=== PATIENT | female | born 1945 | race Caucasian/White ===

== ENCOUNTER 2017-11-23 19:38 | Inpatient (IN) | payer MEDICARE, MEDICAID ==
[2017-11-23 23:56] LABS: % BASOPHILS 0.3 % (0.0-2.0); % EOSINOPHILS 0.3 % (0.0-5.0); % LYMPHOCYTES 17.7 % (20.0-50.0); % MONOCYTES 11.6 % (2.0-10.0); % NEUTROPHILS 70.1 % (40.0-80.0); HEMATOCRIT 29.1 % (41.0-60); HEMOGLOBIN 9.4 gm/dL (12-16); LYMPHOCYTE ABSOLUTE 1.2 Th/cmm (1.5-3.0); MEAN CORPUSCULAR HEMOGLOBIN 25.6 pg (27.0-31.0); MEAN CORPUSCULAR HGB CONC 32.4 pg (28.0-36.0); MEAN PLATELET VOLUME 6.8 fl; MONOCYTE ABSOLUTE 0.8 Th/cmm (0.3-1.0); NEUTROPHILE ABSOLUTE 4.6 Th/cmm (1.8-8.0); PLATELET COUNT 322 Th/cmm (150-400); RED BLOOD COUNT 3.68 Mil/cmm (3.80-5.20); RED CELL DISTRIBUTION WIDTH 14.8 % (11.5-20.0); WHITE BLOOD COUNT 6.6 Th/cmm (4.8-10.8)
[2017-11-24] MEDS ORDERED: Albuterol/Ipratropium Neb 3 ML AERS HHN ONE ×3 (00:10→05:48)
[2017-11-24 00:14] LABS: ALB/GLOB RATIO 1.3 (1.0-1.8); ALBUMIN 3.3 gm/dL (3.7-5.3); ALKALINE PHOSPHATASE 148 U/L (34-104); ANION GAP 9.2 (7.0-16.0); BILIRUBIN,TOTAL 0.4 mg/dL (0.3-1.0); BUN - UREA NITROGEN 15 mg/dL (7-25); CHLORIDE 95 mEq/L (98-107); CREATININE - SERUM 0.8 mg/dL (0.6-1.2); GLUCOSE 83 mg/dL (70-105); POTASSIUM SERUM 3.2 mEq/L (3.5-5.1); SGOT 28 U/L (13-39); SGPT/ALT 27 U/L (7-52); SODIUM SERUM 128 mEq/L (136-145); TOTAL PROTEIN,SERUM 5.8 gm/dL (6.0-8.3)
[2017-11-24] MEDS ORDERED: Sodium Chloride 0.9% 1,000 ML IV ONE (00:49)
[2017-11-24 02:58] LABS: URINE MICROSCOPIC INDICATED? YES; URINE SOURCE RANDOM
[2017-11-24 03:11] LABS: URINE BILIRUBIN NEGATIVE (NEGATIVE); URINE BLOOD TRACE (NEGATIVE); URINE GLUCOSE (UA) NEGATIVE (NEGATIVE); URINE KETONE NEGATIVE (NEGATIVE); URINE LEUKOCYTE ESTERASE NEGATIVE (NEGATIVE); URINE NITRATE NEGATIVE (NEGATIVE); URINE PROTEIN >=300 mg/dL (NEGATIVE); URINE UROBILINOGEN 0.2 E.U./dL (0.2 - 1.0)
[2017-11-24 03:14] LABS: URINE CLARITY HAZY (CLEAR); URINE COLOR YELLOW
[2017-11-24 03:16] LABS: URINE EPITHELIAL CELLS MODERATE /lpf (FEW)
[2017-11-24 03:17] LABS: URINE BACTERIA FEW /hpf (NONE SEEN)
--- NOTE | 2017-11-24 04:01 | ED Physician Chart ---
ED Chief Complaint/HPI - Patient Information Date Seen:: 11/24/17 Time Seen:: 00:05 Chief Complaint:: Cough and congestion History of Present Illness:: 72 yo female with a history of anemia, was brought by daughter due to cough, congestion, SOB and weakness for one week. Allergies:: Allergies Allergy/AdvReac Type Severity Reaction Status Date / Time No Known Allergies Allergy Verified 11/23/17 22:47 Vitals:: Vital Signs - 8 hr 11/23/17 11/24/17 20:30 00:21 Temp 97.4 F HR 65 65 RR 20 22 BP 170/79 O2 Sat % 100 95 ED Review of Systems - Review of Systems General/Constitutional: No fever, Weakness Skin: Skin lesions Head: No headache Eyes: No loss of vision ENT: No earache Neck: No neck pain Cardio Vascular: No chest pain Pulmonary: SOB, Cough GI: No nausea, No vomiting Musculoskeletal: No bone or joint pain ED Past Medical History - Past Medical History Past Medical History: DM, CHF, Asthma/COPD, Other (anemia, right foot ulcers) Social History: Non Smoker, No Alcohol, No Drug Use Family Medical History - Family Member Mother History Unknown: Yes ED Physical Exam - Physical Examination General/Constitutional: Awake Head: Atraumatic Eyes: PERRL ENMT: Nasal exam nl Neck: No nuchal rigidity Other Respiratory comments:: bibasal rhonchi and rales Cardio Vascular: RRR, No murmur, gallop, rubs, NL S1 S2 GI: No tenderness/rebounding/guarding, Nondistended Other Extremities comments:: Right lower extremity stasis ulcer Neuro/Psych: No focal deficits ED Labs/Radiology/EKG Results - Lab Results Results: Laboratory Tests 11/23/17 11/23/17 11/23/17 21:40 23:33 23:33 WBC 6.6 RBC 3.68 L Hgb 9.4 L Hct 29.1 L MCV 79.0 L MCH 25.6 L MCHC Differential 32.4 RDW 14.8 Plt Count 322 MPV 6.8 Neutrophils % 70.1 Lymphocytes % 17.7 L Monocytes % 11.6 H Eosinophils % 0.3 Basophils % 0.3 Sodium 128 L Potassium 3.2 L Chloride 95 L Carbon Dioxide 27.0 Anion Gap 9.2 BUN 15 Creatinine 0.8 Est GFR ( Amer) TNP Est GFR (Non-Af Amer) TNP BUN/Creatinine Ratio 18.8 Glucose 83 POC Glucose 72 Calcium 8.0 L Total Bilirubin 0.4 AST 28 ALT 27 Alkaline Phosphatase 148 H Total Protein 5.8 L Albumin 3.3 L Globulin 2.5 Albumin/Globulin Ratio 1.3 Urine Source Urine Color Urine Clarity Urine pH Ur Specific [place] Urine Protein Urine Glucose (UA) Urine Ketones Urine Blood Urine Nitrate Urine Bilirubin Urine Urobilinogen Ur Leukocyte Esterase Urine RBC Urine WBC Ur Epithelial Cells Urine Bacteria Hyaline Casts 11/24/17 02:50 WBC RBC Hgb Hct MCV MCH MCHC Differential RDW Plt Count MPV Neutrophils % Lymphocytes % Monocytes % Eosinophils % Basophils % Sodium Potassium Chloride Carbon Dioxide Anion Gap BUN Creatinine Est GFR ( Amer) Est GFR (Non-Af Amer) BUN/Creatinine Ratio Glucose POC Glucose Calcium Total Bilirubin AST ALT Alkaline Phosphatase Total Protein Albumin Globulin Albumin/Globulin Ratio Urine Source RANDOM Urine Color YELLOW Urine Clarity HAZY Urine pH 6.0 Ur Specific [place] >= 1.030 Urine Protein >=300 Urine Glucose (UA) NEGATIVE Urine Ketones NEGATIVE Urine Blood TRACE Urine Nitrate NEGATIVE Urine Bilirubin NEGATIVE Urine Urobilinogen 0.2 Ur Leukocyte Esterase NEGATIVE Urine RBC 5-10 H Urine WBC 2-5 Ur Epithelial Cells MODERATE Urine Bacteria FEW Hyaline Casts 2-5 H - Radiology Results Results: CXR: cardiomegaly, no consolidation ED Assessment - Assessment General Assessment: Bronchitis COPD Hyponatremia Hypokalemia Anemia, microcytic DM II Right lower extremity stasis ulcer Assessment/Comments:: CBC, CMP, UA CXR, EKG ABG DuoNeb NS 1L IV bolus Admit to telemetry for further evaluation and management ED Septic Shock - . Is Septic Shock (SBP<90, OR Lactate>4 mmol\L) present?: No - <6hrs of presentation: Vital Signs: Vital Signs - 8 hr 11/23/17 11/24/17 20:30 00:21 Temp 97.4 F HR 65 65 RR 20 22 BP 170/79 O2 Sat % 100 95 ED Reassessment (Disposition) - Reassessment Reassessment Condition:: Improved - Patient Disposition Discharge/Transfer:: Acute Care w/in this hosp Admitting Medical Physician:: Melanie Nayak ED Discharge Plan - Patient Disposition Admit/Discharge/Transfer: Discharge/Transfered to SNF Condition at Disposition: Stable
[2017-11-24 04:54] LABS: ALLEN TEST Positive; pH 7.38 (7.35-7.45)
--- NOTE | 2017-11-24 08:15 | Diagnostic Imaging Report ---
Portable chest x-ray Time: 0021 hours History: Evidence of breath Allowing for portable technique the heart size is prominent.. No focal pulmonary parenchymal processes. No hilar or mediastinal abnormalities. Impression: Cardiomegaly No acute abnormalities.
[2017-11-24] MEDS ORDERED: Potassium Chloride 20 mEq ER Tab PO ONE (11:55)
[2017-11-24] MEDS: Morphine Sulfate 2 mg/mL 1mL Syr IVP PRN ×2 (13:06→22:32)
[2017-11-24] MEDS: Sodium Chloride 0.9% 1,000 ML IV SCH (13:17)
--- NOTE | 2017-11-24 16:25 | History and Physical ---
History of Present Illness - HPI Vital Signs: Last Vital Signs Temp 98.4 F 11/24/17 16:09 Pulse 77 11/24/17 16:09 Resp 22 11/24/17 16:09 BP 181/72 11/24/17 16:09 Pulse Ox 100 11/24/17 11:25 Family Medical History - Family Member Mother History Unknown: Yes - Medications Home Medications: Home Medication Medication Instructions Recorded Type Unobtainable [Unobtainable] 11/24/17 History - Allergies Allergies/Adverse Reactions: Allergies Allergy/AdvReac Type Severity Reaction Status Date / Time No Known Allergies Allergy Verified 11/23/17 22:47
[2017-11-24] MEDS: Albuterol/Ipratropium Neb 3 ML AERS HHN PRN (18:38)
[2017-11-25] MEDS: Sodium Chloride 0.9% 1,000 ML IV SCH ×2 (02:01→16:21)
[2017-11-25 02:44] VITALS: BP 184/98
[2017-11-25] MEDS: Morphine Sulfate 2 mg/mL 1mL Syr IVP PRN (03:13)
--- NOTE | 2017-11-25 14:31 | Internal Medicine Prog Note ---
Internal Medicine Subjective - Subjective Service Date: 11/25/17 Patient seen and examined:: with staff Patient is:: awake Patient Complaints of:: congestion Per staff patient has:: tolerating meds Internal Medicine Objective - Results Result Diagrams: 11/23/17 23:33 11/23/17 23:33 Recent Labs: Laboratory Last Values WBC 6.6 Th/cmm (4.8-10.8) 11/23/17 23: RBC 3.68 Mil/cmm (3.80-5.20) L 11/23/17 23: Hgb 9.4 gm/dL (12-16) L 11/23/17 23:33 Hct 29.1 % (41.0-60) L 11/23/17 23: MCV 79.0 fl (81-100) L 11/23/17 23: MCH 25.6 pg (27.0-31.0) L 11/23/17 23: MCHC Differential 32.4 pg (28.0-36.0) 11/23/17 23: RDW 14.8 % (11.5-20.0) 11/23/17 23: Plt Count 322 Th/cmm (150-400) 11/23/17 23:33 MPV 6.8 fl 11/23/17 23:33 Neutrophils % 70.1 % (40.0-80.0) 11/23/17 23: Lymphocytes % 17.7 % (20.0-50.0) L 11/23/17 23: Monocytes % 11.6 % (2.0-10.0) H 11/23/17 23: Eosinophils % 0.3 % (0.0-5.0) 11/23/17 23: Basophils % 0.3 % (0.0-2.0) 11/23/17 23:33 Specimen Source Arterial 11/24/17 04:40 Sample Site Left Radial 11/24/17 04:40 pH 7.38 (7.35-7.45) 11/24/17 04:40 pCO2 54.0 mmHg (35.0-45.0) H 11/24/17 04:40 pO2 96.0 mmHg (80.0-100.0) 11/24/17 04:40 HCO3 29.1 mEq/L (20.0-26.0) H 11/24/17 04:40 Base Excess 5.4 mEq/L (-3.0-3.0) H 11/24/17 04:40 O2 Saturation 97.0 % (92.0-100.0) 11/24/17 04:40 Fredy Test Positive 11/24/17 04:40 Vent Rate NA 11/24/17 04:40 Inspired O2 28 11/24/17 04:40 Tidal Volume NA 11/24/17 04:40 PEEP NA 11/24/17 04:40 Pressure (ins/psv/peep) NA 11/24/17 04:40 Critical Value DONALD MACIAS 11/24/17 04:40 Sodium 128 mEq/L (136-145) L 11/23/17 23:33 Potassium 3.2 mEq/L (3.5-5.1) L 11/23/17 23:33 Chloride 95 mEq/L (98-107) L 11/23/17 23:33 Carbon Dioxide 27.0 mEq/L (21.0-31.0) 11/23/17 23:33 Anion Gap 9.2 (7.0-16.0) 11/23/17 23:33 BUN 15 mg/dL (7-25) 11/23/17 23:33 Creatinine 0.8 mg/dL (0.6-1.2) 11/23/17 23:33 Est GFR ( Amer) TNP 11/23/17 23:33 Est GFR (Non-Af Amer) TNP 11/23/17 23:33 BUN/Creatinine Ratio 18.8 11/23/17 23:33 Glucose 83 mg/dL (70-105) 11/23/17 23:33 POC Glucose 265 MG/DL (70 - 105) H 11/25/17 10:08 Calcium 8.0 mg/dL (8.6-10.3) L 11/23/17 23:33 Total Bilirubin 0.4 mg/dL (0.3-1.0) 11/23/17 23:33 AST 28 U/L (13-39) 11/23/17 23:33 ALT 27 U/L (7-52) 11/23/17 23:33 Alkaline Phosphatase 148 U/L (34-104) H 11/23/17 23:33 Total Protein 5.8 gm/dL (6.0-8.3) L 11/23/17 23:33 Albumin 3.3 gm/dL (3.7-5.3) L 11/23/17 23:33 Globulin 2.5 gm/dL 11/23/17 23:33 Albumin/Globulin Ratio 1.3 (1.0-1.8) 11/23/17 23:33 Urine Source RANDOM 11/24/17 02:50 Urine Color YELLOW 11/24/17 02:50 Urine Clarity HAZY (CLEAR) 11/24/17 02:50 Urine pH 6.0 (4.6 - 8.0) 11/24/17 02:50 Ur Specific [place] >= 1.030 (1.005-1.030) 11/24/17 02:50 Urine Protein >=300 mg/dL (NEGATIVE) 11/24/17 02:50 Urine Glucose (UA) NEGATIVE mg/dL (NEGATIVE) 11/24/17 02:50 Urine Ketones NEGATIVE mg/dL (NEGATIVE) 11/24/17 02:50 Urine Blood TRACE (NEGATIVE) 11/24/17 02:50 Urine Nitrate NEGATIVE (NEGATIVE) 11/24/17 02:50 Urine Bilirubin NEGATIVE (NEGATIVE) 11/24/17 02:50 Urine Urobilinogen 0.2 E.U./dL (0.2 - 1.0) 11/24/17 02:50 Ur Leukocyte Esterase NEGATIVE (NEGATIVE) 11/24/17 02:50 Urine RBC 5-10 /hpf (0-5) H 11/24/17 02:50 Urine WBC 2-5 /hpf (0-5) 11/24/17 02:50 Ur Epithelial Cells MODERATE /lpf (FEW) 11/24/17 02:50 Urine Bacteria FEW /hpf (NONE SEEN) 11/24/17 02:50 Hyaline Casts 2-5 /lpf (0-2) H 11/24/17 02:50 - Physical Exam Vitals and I&O: Vital Signs Temp 97.8 F 11/25/17 04:00 Pulse 73 11/25/17 13:17 Resp 20 11/25/17 04:00 BP 180/87 11/25/17 13:17 Pulse Ox 92 11/25/17 04:00 Intake & Output 11/24/17 11/25/17 11/25/17 18:59 06:59 18:59 Intake Total 350 1105 Balance 350 1105 Weight (lbs) 170 lb 170 lb Intake: Intake, IV Amount 955 Sodium Chloride 0.9% 1, 955 000 ml @ 75 mls/hr IV . [id number] [facility] Rx#:[id number] Oral 350 150 Other: # Voids 4 2 # Bowel Movements 1 0 Stool Characteristics Soft Formed Active Medications: Current Medications Albuterol/Ipratropium (Duoneb Neb) 3 ml HHN Q4HRT PRN PRN Reason: Shortness of Breath Stop: 01/23/18 05:17 Last Admin: 11/24/17 18:38 Dose: 3 ml Sodium Chloride (Nacl 0.9%) 1,000 mls @ 75 mls/hr IV .[id number] [facility] Stop: 01/23/18 12:29 Last Admin: 11/25/17 02:01 Dose: 75 mls/hr Insulin Aspart (Novolog Insulin Sliding Scale) 0 units SUBQ ACHS SY[facility]IA PRN Reason: Protocol Stop: 01/24/18 16:29 Lisinopril (Zestril) 15 mg PO DAILY [facility] Stop: 01/23/18 11:59 Last Admin: 11/25/17 08:10 Dose: 15 mg Morphine Sulfate (Morphine) 1 mg IVP Q4HR PRN PRN Reason: Pain (Moderate) Stop: 01/23/18 11:51 Last Admin: 11/24/17 22:32 Dose: 1 mg Morphine Sulfate (Morphine) 2 mg IVP Q4HR PRN PRN Reason: Pain (Severe) Stop: 01/23/18 11:51 Last Admin: 11/25/17 03:13 Dose: 2 mg Ondansetron HCl (Zofran) 4 mg IV Q4H PRN PRN Reason: Nausea / Vomiting Stop: 01/23/18 11:56 General: weak, alert HEENT: NC/AT, PERRLA Neck: Supple Lungs: ronchi Cardiovascular: RRR, Normal S1, Normal S2 Abdomen: soft, non-tender, non-distended Neurological: alert - Procedures Procedures: Procedures Procedure Code Date DRAINAGE OF SKIN ABSCESS 64933 07/03/05 OTHER SKIN & SUBQ I D 86.04 07/03/05 Internal Medicine Assmt/Plan - Assessment Assessment: anemia COPD exacerbation respiratory acidosis - Plan Plan: SUPPLEMENTAL O2 IVABX BRONCHODILATORS CONTINUE CURRENT PLAN OF CARE
[2017-11-25] MEDS: INSULIN ASPART SLIDING SCALE 100 UNITS/ML UNIT SUBQ SCH ×2 (16:29→21:33)
[2017-11-26] MEDS: Morphine Sulfate 2 mg/mL 1mL Syr IVP PRN ×2 (00:13→04:28)
[2017-11-26] MEDS: Sodium Chloride 0.9% 1,000 ML IV SCH (04:32)
[2017-11-26] MEDS: INSULIN ASPART SLIDING SCALE 100 UNITS/ML UNIT SUBQ SCH ×4 (07:34→22:54)
[2017-11-26] MEDS ORDERED: Albuterol/Ipratropium Neb 3 ML AERS HHN ONE (08:01)
[2017-11-26] MEDS: Albuterol/Ipratropium Neb 3 ML AERS HHN PRN ×2 (08:10→19:03)
[2017-11-26] MEDS: Atorvastatin Calcium 10 MG TAB PO SCH (08:53)
--- NOTE | 2017-11-26 12:19 | Internal Medicine Prog Note ---
Internal Medicine Subjective - Subjective Service Date: 11/26/17 (patient urine suzanne in color, noted with productive cough but white phlegm) Patient is:: awake Patient Complaints of:: congestion Per staff patient has:: tolerating meds Internal Medicine Objective - Results Result Diagrams: 11/23/17 23:33 11/23/17 23:33 Recent Labs: Laboratory Last Values WBC 6.6 Th/cmm (4.8-10.8) 11/23/17 23:33 RBC 3.68 Mil/cmm (3.80-5.20) L 11/23/17 23:33 Hgb 9.4 gm/dL (12-16) L 11/23/17 23:33 Hct 29.1 % (41.0-60) L 11/23/17 23: MCV 79.0 fl (81-100) L 11/23/17 23:33 MCH 25.6 pg (27.0-31.0) L 11/23/17 23:33 MCHC Differential 32.4 pg (28.0-36.0) 11/23/17 23:33 RDW 14.8 % (11.5-20.0) 11/23/17 23:33 Plt Count 322 Th/cmm (150-400) 11/23/17 23:33 MPV 6.8 fl 11/23/17 23:33 Neutrophils % 70.1 % (40.0-80.0) 11/23/17 23:33 Lymphocytes % 17.7 % (20.0-50.0) L 11/23/17 23:33 Monocytes % 11.6 % (2.0-10.0) H 11/23/17 23:33 Eosinophils % 0.3 % (0.0-5.0) 11/23/17 23:33 Basophils % 0.3 % (0.0-2.0) 11/23/17 23:33 Specimen Source Arterial 11/24/17 04:40 Sample Site Left Radial 11/24/17 04:40 pH 7.38 (7.35-7.45) 11/24/17 04:40 pCO2 54.0 mmHg (35.0-45.0) H 11/24/17 04:40 pO2 96.0 mmHg (80.0-100.0) 11/24/17 04:40 HCO3 29.1 mEq/L (20.0-26.0) H 11/24/17 04:40 Base Excess 5.4 mEq/L (-3.0-3.0) H 11/24/17 04:40 O2 Saturation 97.0 % (92.0-100.0) 11/24/17 04:40 Fredy Test Positive 11/24/17 04:40 Vent Rate NA 11/24/17 04:40 Inspired O2 28 11/24/17 04:40 Tidal Volume NA 11/24/17 04:40 PEEP NA 11/24/17 04:40 Pressure (ins/psv/peep) NA 11/24/17 04:40 Critical Value DONALD MACIAS 11/24/17 04:40 Sodium 128 mEq/L (136-145) L 11/23/17 23:33 Potassium 3.2 mEq/L (3.5-5.1) L 11/23/17 23:33 Chloride 95 mEq/L (98-107) L 11/23/17 23:33 Carbon Dioxide 27.0 mEq/L (21.0-31.0) 11/23/17 23:33 Anion Gap 9.2 (7.0-16.0) 11/23/17 23:33 BUN 15 mg/dL (7-25) 11/23/17 23:33 Creatinine 0.8 mg/dL (0.6-1.2) 11/23/17 23:33 Est GFR ( Amer) TNP 11/23/17 23:33 Est GFR (Non-Af Amer) TNP 11/23/17 23:33 BUN/Creatinine Ratio 18.8 11/23/17 23:33 Glucose 83 mg/dL (70-105) 11/23/17 23:33 POC Glucose 260 MG/DL (70 - 105) H 11/26/17 11:34 Calcium 8.0 mg/dL (8.6-10.3) L 11/23/17 23:33 Total Bilirubin 0.4 mg/dL (0.3-1.0) 11/23/17 23:33 AST 28 U/L (13-39) 11/23/17 23:33 ALT 27 U/L (7-52) 11/23/17 23:33 Alkaline Phosphatase 148 U/L (34-104) H 11/23/17 23:33 Total Protein 5.8 gm/dL (6.0-8.3) L 11/23/17 23:33 Albumin 3.3 gm/dL (3.7-5.3) L 11/23/17 23:33 Globulin 2.5 gm/dL 11/23/17 23:33 Albumin/Globulin Ratio 1.3 (1.0-1.8) 11/23/17 23:33 Urine Source RANDOM 11/24/17 02:50 Urine Color YELLOW 11/24/17 02:50 Urine Clarity HAZY (CLEAR) 11/24/17 02:50 Urine pH 6.0 (4.6 - 8.0) 11/24/17 02:50 Ur Specific [place] >= 1.030 (1.005-1.030) 11/24/17 02:50 Urine Protein >=300 mg/dL (NEGATIVE) 11/24/17 02:50 Urine Glucose (UA) NEGATIVE mg/dL (NEGATIVE) 11/24/17 02:50 Urine Ketones NEGATIVE mg/dL (NEGATIVE) 11/24/17 02:50 Urine Blood TRACE (NEGATIVE) 11/24/17 02:50 Urine Nitrate NEGATIVE (NEGATIVE) 11/24/17 02:50 Urine Bilirubin NEGATIVE (NEGATIVE) 11/24/17 02:50 Urine Urobilinogen 0.2 E.U./dL (0.2 - 1.0) 11/24/17 02:50 Ur Leukocyte Esterase NEGATIVE (NEGATIVE) 11/24/17 02:50 Urine RBC 5-10 /hpf (0-5) H 11/24/17 02:50 Urine WBC 2-5 /hpf (0-5) 11/24/17 02:50 Ur Epithelial Cells MODERATE /lpf (FEW) 11/24/17 02:50 Urine Bacteria FEW /hpf (NONE SEEN) 11/24/17 02:50 Hyaline Casts 2-5 /lpf (0-2) H 11/24/17 02:50 - Physical Exam Vitals and I&O: Vital Signs Temp 98.2 F 11/26/17 11:47 Pulse 75 11/26/17 11:47 Resp 18 11/26/17 11:47 BP 169/62 11/26/17 11:47 Pulse Ox 98 11/26/17 11:47 Intake & Output 11/25/17 11/26/17 11/26/17 18:59 06:59 18:59 Intake Total 1000 1113.75 Output Total 300 Balance 1000 813.75 Weight (lbs) 230 lb 3.2 oz Intake: Intake, IV Amount 1000 913.75 Sodium Chloride 0.9% 1, 1000 913.75 000 ml @ 75 mls/hr IV . [id number] [facility] Rx#:[id number] Oral 200 Output: Urine 300 Other: # Bowel Movements 0 Active Medications: Current Medications Albuterol/Ipratropium (Duoneb Neb) 3 ml HHN Q4HRT PRN PRN Reason: Shortness of Breath Stop: 01/23/18 05:17 Last Admin: 11/26/17 08:10 Dose: 3 ml Aspirin (Ecotrin) 81 mg PO DAILY [facility] Stop: 01/25/18 08:59 Last Admin: 11/26/17 09:22 Dose: 81 mg Atorvastatin Calcium (Lipitor) 10 mg PO DAILY [facility] Stop: 01/25/18 08:59 Last Admin: 11/26/17 08:53 Dose: 10 mg Carvedilol (Coreg) 25 mg PO BID [facility] Stop: 01/25/18 08:59 Last Admin: 11/26/17 08:54 Dose: 25 mg Furosemide (Lasix) 40 mg PO DAILY [facility] Stop: 01/25/18 08:59 Last Admin: 11/26/17 08:52 Dose: 40 mg Sodium Chloride (Nacl 0.9%) 1,000 mls @ 75 mls/hr IV .[id number] [facility] Stop: 01/23/18 12:29 Last Admin: 11/26/17 04:32 Dose: 75 mls/hr Insulin Aspart (Novolog Insulin Sliding Scale) 0 units SUBQ ACHS [facility] PRN Reason: Protocol Stop: 01/24/18 16:29 Last Admin: 11/26/17 12:05 Dose: 6 units Insulin Detemir (Levemir Insulin) 40 units SUBQ HS [facility] Stop: 01/25/18 20:59 Lisinopril (Zestril) 15 mg PO DAILY [facility] Stop: 01/23/18 11:59 Last Admin: 11/26/17 08:54 Dose: 15 mg Morphine Sulfate (Morphine) 1 mg IVP Q4HR PRN PRN Reason: Pain (Moderate) Stop: 01/23/18 11:51 Last Admin: 11/24/17 22:32 Dose: 1 mg Morphine Sulfate (Morphine) 2 mg IVP Q4HR PRN PRN Reason: Pain (Severe) Stop: 01/23/18 11:51 Last Admin: 11/26/17 04:28 Dose: 2 mg Ondansetron HCl (Zofran) 4 mg IV Q4H PRN PRN Reason: Nausea / Vomiting Stop: 01/23/18 11:56 Pentoxifylline (Trental) 400 mg PO BID [facility] Stop: 01/25/18 08:59 Last Admin: 11/26/17 08:53 Dose: 400 mg Sitagliptin Phosphate (Januvia) 25 mg PO DAILY [facility] Stop: 01/25/18 08:59 Last Admin: 11/26/17 09:22 Dose: 25 mg General: weak, alert HEENT: NC/AT, PERRLA Neck: Supple Lungs: ronchi Cardiovascular: RRR, Normal S1, Normal S2 Abdomen: soft, non-tender, non-distended Neurological: alert - Procedures Procedures: Procedures Procedure Code Date DRAINAGE OF SKIN ABSCESS 92919 07/03/05 OTHER SKIN & SUBQ I D 86.04 07/03/05 Internal Medicine Assmt/Plan - Assessment Assessment: anemia COPD exacerbation respiratory acidosis - Plan Plan: SEND URINE FOR UA AND CULTURE SUPPLEMENTAL O2 IVABX BRONCHODILATORS CONTINUE CURRENT PLAN OF CARE Nutritional Asmnt/Malnutr-PDOC - Dietary Evaluation Malnutrition Findings (Please click <Entered> for more info): Nutritional Asmnt/Malnutrition Start: 11/25/17 18: 26 Text: Status: Complete Freq: Document 11/25/17 18:26 [place]G (Rec: 11/25/17 18:33 [facility] [email or web address]) Nutritional Asmnt/Malnutrition Patient General Information Nutritional Screening High Risk Consult Diagnosis anemia, COPD, respiratory acidosis Pertinent Medical Hx/Surgical Hx anemia, DM per family Subjective Information consult received for diebetic foot ulcer, skin integrity/ wound. . pt seen resting in bed at the time of visit, family at bedside. family reported pt got regular diet tray this morning, wanted diabetic diet. Pt only had some oatmeal for breakfast and squash and applesauce for lunch, low appetite d/t disease. Family denied pt having chewing problem with dentures. Per notes, PO intake 25-50% 11/25 Current Diet Order/ Nutrition Support Regular Pertinent Medications novolog, nacl 0.9% Pertinent Labs 11/23 Na 128, K 3.2, Cl 95, BUN 15, Cr 0.8, Glucose 83, ca 8.0 11/25 POC 165-167 Nutritional Hx/Data Height 5 ft 5 in Height (Calculated Centimeters) 165.1 Current Weight (lbs) 170 lb Weight (Calculated Kilograms) 77.1 Weight (Calculated Grams) 29096.7 [place] Body Weight 125 % [place] Body Weight 136 Body Mass Index (BMI) 28.3 Weight Status Overweight GI Symptoms GI Symptoms None Difficult in: None Skin Integrity/Comment: decubitus to right foot Current %PO Poor (25-49%) Estimated Nutritional Goals BEE in Kcals: Using Current wt Calories/Kcals/Kg 25 Kcals Calculated 192 Protein: Using Current wt Protein g/k Protein Calculated 77 Fluid: ml 1924 Nutritional Problem 1. Problem Problem inadquate food intake Etiology poor appetite Signs/Symptoms: PO intake <50% Malnutrition Alert Protein-Calorie Malnutrition N/A Is there a minimum of two criteria No selected? Query Text:Check all the applicable criteria. A minimum of two criteria are recommended for diagnosis of either severe or non-severe malnutrition. Intervention/Recommendation Comments 1. Recommend CCHO diet with Boost Glucose Control BID. Notified RN. 2. Monitor PO intake, wt, labs and skin integrity 3. F/U as high risk in 2-3 days, 11/27-11/28 Expected Outcomes/Goals Expected Outcomes/Goals 1. PO intake to improve, to meet at least 75% of nutritional needs. 2. Wt stability, skin to remain intact, labs to improve
[2017-11-26 12:31] LABS: URINE MICROSCOPIC INDICATED? YES; URINE SOURCE CATH
[2017-11-26 12:57] LABS: URINE BILIRUBIN SMALL (NEGATIVE); URINE BLOOD LARGE (NEGATIVE); URINE GLUCOSE (UA) 100 mg/dL (NEGATIVE); URINE KETONE NEGATIVE (NEGATIVE); URINE LEUKOCYTE ESTERASE NEGATIVE (NEGATIVE); URINE NITRATE NEGATIVE (NEGATIVE); URINE PROTEIN 100 mg/dL (NEGATIVE); URINE UROBILINOGEN 0.2 E.U./dL (0.2 - 1.0)
[2017-11-26 13:18] LABS: URINE CLARITY HAZY (CLEAR); URINE COLOR YELLOW
[2017-11-26 13:22] LABS: URINE BACTERIA FEW /hpf (NONE SEEN); URINE EPITHELIAL CELLS FEW /lpf (FEW); URINE RBC >100 /hpf (0-5)
[2017-11-26] MEDS: Insulin Detemir 100 units/mL 10mL Vial SUBQ SCH (22:53)
[2017-11-26] MEDS: Levofloxacin 250mg/50mL 250 MG/50 ML BAG IV SCH (22:54)
[2017-11-27 05:19] LABS: % EOSINOPHILS 0.1 % (0.0-5.0); % LYMPHOCYTES 9.5 % (20.0-50.0); % MONOCYTES 5.9 % (2.0-10.0); % NEUTROPHILS 84.5 % (40.0-80.0); HEMATOCRIT 31.6 % (41.0-60); HEMOGLOBIN 10.3 gm/dL (12-16); LYMPHOCYTE ABSOLUTE 1.1 Th/cmm (1.5-3.0); MEAN CORPUSCULAR HEMOGLOBIN 25.8 pg (27.0-31.0); MEAN CORPUSCULAR HGB CONC 32.6 pg (28.0-36.0); MEAN PLATELET VOLUME 7.1 fl; MONOCYTE ABSOLUTE 0.7 Th/cmm (0.3-1.0); NEUTROPHILE ABSOLUTE 9.3 Th/cmm (1.8-8.0); PLATELET COUNT 293 Th/cmm (150-400); RED CELL DISTRIBUTION WIDTH 14.6 % (11.5-20.0)
[2017-11-27 05:29] LABS: WHITE BLOOD COUNT 11.1 Th/cmm (4.8-10.8)
[2017-11-27 05:38] LABS: BUN - UREA NITROGEN 16 mg/dL (7-25); CALCIUM SERUM 7.5 mg/dL (8.6-10.3); CHLORIDE 93 mEq/L (98-107); GLUCOSE 187 mg/dL (70-105); POTASSIUM SERUM 3.2 mEq/L (3.5-5.1); SODIUM SERUM 128 mEq/L (136-145)
[2017-11-27 06:46] LABS: ANION GAP 10.4 (7.0-16.0); CARBON DIOXIDE 27.8 mEq/L (21.0-31.0)
[2017-11-27] MEDS: INSULIN ASPART SLIDING SCALE 100 UNITS/ML UNIT SUBQ SCH ×4 (06:54→22:37)
[2017-11-27] MEDS: Atorvastatin Calcium 10 MG TAB PO SCH (08:52)
--- NOTE | 2017-11-27 09:54 | Diagnostic Imaging Report ---
CHEST X-RAY: AP view INDICATION: Cough COMPARISON: 11/24/2017 FINDINGS: Developing mild congestive changes are seen with small right effusion. Cardiomegaly is noted with atherosclerosis. IMPRESSION: Developing mild congestive changes and small right effusion. There may be pneumonia of the right lung base Cardiomegaly and atherosclerotic vascular disease.
[2017-11-27 14:29] LABS: A1C % 7.5 % (4.0-6.0)
[2017-11-27] MEDS ORDERED: Potassium Phosphate 20 MMOLE in Sodium Chloride 0.9% 250 ML IV ONE (15:59)
[2017-11-27] MEDS ORDERED: Potassium Chloride 40 MEQ, Lidocaine 1% 20mL Vial 25 MG in Sodium Chloride 0.9% 250 ML IV ONE (16:00)
[2017-11-27] MEDS: Albuterol/Ipratropium Neb 3 ML AERS HHN PRN ×2 (16:29→19:06)
[2017-11-27 17:24] LABS: pH 7.11 (7.35-7.45)
--- NOTE | 2017-11-27 17:28 | Consultation ---
Consult Note - Consult Note Service Date: 11/27/17 Referring Physician: Melanie Nayak Consult Note: PHYSICIAN Consultation Note: Date of Admission: 11/24/17 Purpose of Consultation: Chief Complaint: Patient MICHAEL SUAZO was admitted to [facility] with ANEMIA,COPD, RESPIRATORY ACIDOSIS. History of Present Illness: 72 year old female with history of anemia, COPD, CHF presented to the ER for cpugh and congestion. She was alert at the time of admission. However, her mental condition deteriorated, and started shallow breathing. CXR suspected effusion and effusion and ? pneumonia on the right. He Past Medical History: Diagnoses ANEMIA, UNSPECIFIED (11/24/17) ACIDOSIS (11/24/17) CHRONIC OBSTRUCTIVE PULMONARY DISEASE W (ACUTE) EXACERBATION (11/24/17) Allergies Allergy/AdvReac Type Severity Reaction Status Date / Time No Known Allergies Allergy Verified 11/23/17 22:47 Vital Signs Temp 97.2 F 11/27/17 16:00 Pulse 58 11/27/17 16:56 Resp 20 11/27/17 17:00 BP 110/50 11/27/17 16:56 Pulse Ox 100 11/27/17 16:31 Intake & Output 11/26/17 11/27/17 11/27/17 18:59 06:59 18:59 Intake Total 1550 Output Total 1200 Balance 350 Weight (lbs) 107.048 kg Intake: Intake, IV Amount 1050 Levofloxacin 250mg/50mL 50 250 mg In 50 ml @ 50 mls/ hr IV Q24HR [facility] Rx#: [id number] Sodium Chloride 0.9% 1, 1000 000 ml @ 75 mls/hr IV . [id number] [facility] Rx#:[id number] Oral 500 Output: Urine 1200 Other: # Bowel Movements 1 Laboratory Results - last 24 hr 11/26/17 11/27/17 11/27/17 22:39 05:05 05:05 WBC 11.1 H D RBC 4.00 Hgb 10.3 L Hct 31.6 L MCV 79.0 L MCH 25.8 L MCHC Differential 32.6 RDW 14.6 Plt Count 293 MPV 7.1 Neutrophils % 84.5 H Lymphocytes % 9.5 L Monocytes % 5.9 Eosinophils % 0.1 Basophils % 0.0 Specimen Source Sample Site pH pCO2 pO2 HCO3 Base Excess O2 Saturation Fredy Test Vent Rate Inspired O2 Tidal Volume PEEP Pressure (ins/psv/peep) Critical Value Sodium 128 L Potassium 3.2 L Chloride 93 L Carbon Dioxide 27.8 Anion Gap 10.4 BUN 16 Creatinine 1.0 Est GFR ( Amer) TNP Est GFR (Non-Af Amer) TNP BUN/Creatinine Ratio 16.0 Glucose 187 H POC Glucose 220 H Hemoglobin A1c % Calcium 7.5 L 11/27/17 11/27/17 11/27/17 05:05 06:39 10:56 WBC RBC Hgb Hct MCV MCH MCHC Differential RDW Plt Count MPV Neutrophils % Lymphocytes % Monocytes % Eosinophils % Basophils % Specimen Source Sample Site pH pCO2 pO2 HCO3 Base Excess O2 Saturation Fredy Test Vent Rate Inspired O2 Tidal Volume PEEP Pressure (ins/psv/peep) Critical Value Sodium Potassium Chloride Carbon Dioxide Anion Gap BUN Creatinine Est GFR ( Amer) Est GFR (Non-Af Amer) BUN/Creatinine Ratio Glucose POC Glucose 161 H 169 H Hemoglobin A1c % 7.5 H Calcium 11/27/17 11/27/17 16:48 16:51 WBC RBC Hgb Hct MCV MCH MCHC Differential RDW Plt Count MPV Neutrophils % Lymphocytes % Monocytes % Eosinophils % Basophils % Specimen Source Arterial Sample Site RB pH 7.11 L* pCO2 100.0 H* pO2 121.0 H HCO3 24.7 Base Excess -0.3 O2 Saturation 97.0 Fredy Test NA Vent Rate NA Inspired O2 28 Tidal Volume NA PEEP NA Pressure (ins/psv/peep) NA Critical Value SH Sodium Potassium Chloride Carbon Dioxide Anion Gap BUN Creatinine Est GFR ( Amer) Est GFR (Non-Af Amer) BUN/Creatinine Ratio Glucose POC Glucose 154 H Hemoglobin A1c % Calcium Home Medication Medication Instructions Recorded Type Aspirin EC [Ecotrin] 81 mg PO DAILY 11/25/17 History Carvedilol 25 mg PO BID 11/25/17 History Furosemide 40 mg PO DAILY 11/25/17 History Insulin Glargine, Recombinan 40 units SUBQ HS 11/25/17 History [Lantus] Pentoxifylline 400 mg PO BID 11/25/17 History Potassium Chloride ER [Klor-Con] 11/25/17 History Pravastatin Sodium 40 mg PO HS 11/25/17 History Sitagliptin Phosphate [Januvia] 25 mg PO 11/25/17 History Current Medications Generic Name Dose Route Start Last Admin Trade Name Freq PRN Reason Stop Dose Admin Albuterol/Ipratropium 3 ml 11/24/17 05:18 11/27/17 16:29 Duoneb Neb HHN 01/23/18 05:17 3 ml Q4HRT PRN Administration Shortness of Breath Alprazolam 0.25 mg 11/26/17 21:54 11/26/17 22:53 Xanax PO 01/25/18 21:53 0.25 mg Q8HR PRN Administration FOR ANXIETY Protocol Aspirin 81 mg 11/26/17 09:00 11/27/17 08:52 Ecotrin PO 01/25/18 08:59 81 mg DAILY [facility] Administration Atorvastatin Calcium 10 mg 11/26/17 09:00 11/27/17 08:52 Lipitor PO 01/25/18 08:59 10 mg DAILY [facility] Administration Carvedilol 25 mg 11/26/17 09:00 11/27/17 16:56 Coreg PO 01/25/18 08:59 Not Given BID [facility] Furosemide 40 mg 11/26/17 09:00 11/27/17 08:51 Lasix PO 01/25/18 08:59 40 mg DAILY [facility] Administration Sodium Chloride 1,000 mls @ 75 mls/hr 11/24/17 12:30 11/26/17 22:41 Nacl 0.9% IV 01/23/18 12:29 Infused .[id number] [facility] Infusion Levofloxacin 250 mg in 50 mls @ 50 mls/hr 11/26/17 21:00 11/27/17 06:55 Levaquin Pb IV 01/25/18 20:59 Infused Q24HR [facility] Infusion Potassium Chloride 40 meq/ 272.5 mls @ 68 mls/hr 11/27/17 16:00 11/27/17 16: 44 Lidocaine HCl 25 mg/ Sodium IV 11/27/17 20:00 68 mls/hr Chloride X1 ONE Administration Insulin Aspart 0 units 11/25/17 16:30 11/27/17 16:48 Novolog Insulin Sliding Scale SUBQ 01/24/18 16:29 2 units ACHS [facility] Administration Protocol Insulin Detemir 40 units 11/26/17 21:00 11/26/17 22:53 Levemir Insulin SUBQ 01/25/18 20:59 40 units HS [facility] Administration Lisinopril 15 mg 11/24/17 12:00 11/27/17 08:51 Zestril PO 01/23/18 11:59 15 mg DAILY [facility] Administration Lorazepam 0.5 mg 11/26/17 21:18 Ativan IVP 01/25/18 21:17 BID PRN Anxiety Protocol Morphine Sulfate 1 mg 11/24/17 11:52 11/24/17 22:32 Morphine IVP 01/23/18 11:51 1 mg Q4HR PRN Administration Pain (Moderate) Morphine Sulfate 2 mg 11/24/17 11:52 11/26/17 04:28 Morphine IVP 01/23/18 11:51 2 mg Q4HR PRN Administration Pain (Severe) Ondansetron HCl 4 mg 11/24/17 11:57 Zofran IV 01/23/18 11:56 Q4H PRN Nausea / Vomiting Pentoxifylline 400 mg 11/26/17 09:00 11/27/17 16:56 Trental PO 01/25/18 08:59 400 mg BID [facility] Administration Sitagliptin Phosphate 25 mg 11/26/17 09:00 11/27/17 08:52 Januvia PO 01/25/18 08:59 25 mg DAILY [facility] Administration Review of Systems: A 12 point ROS was reviewed with the pertinent positive and negatives noted in the HPI. Social History Smoking Status Unknown if ever smoked Family Medical History unknown. Physical Exam: General: WN WD HEENT: head normocephalic atraumatic. oral cavity moist pink tongue. eyes pallor is present, no icterus Neck: vesicular breath sounds. Cardio: S1 and D2 WNL. Respiratory: Vesicular BS, crackles present bilaterally. Abdominal: Soft NT ND BS present. Genital/Urinary: Extremities: NCCCE, has chronic right leg wound, with well defined border and pink base. Neurological: Obtunded. Assessment: 1. Pneumonia . 2. altered mental status, likey 2/2 CO2 Narcosis. cannot rule out any other etiologies. 3. CHF 4. brice cardia ( borderline). 5. Right leg wound, suspect venous stasis ulcer and pyoderma gangrenosum. Plan: Conitue levaquin. add zosyn. Check influenza A B screen. CT scan brain. serial ABG. If condition does not improve, may transfer to the ICU and get CT scan of head. Wound care. Signed, Rivera Cornelius M.D. [id number]
[2017-11-27] MEDS: Levofloxacin 250mg/50mL 250 MG/50 ML BAG IV SCH (21:16)
--- NOTE | 2017-11-27 21:38 | Progress Notes ---
DATE: 11/27/2017 SUBJECTIVE: The patient was seen in her room, lying in the bed. The patient is asleep, but is still arousable. Family members at the bedside. The patient appears to be comfortable, in no acute distress. OBJECTIVE: VITAL SIGNS: Temperature 96.5, heart rate 64, blood pressure 150/63, respiration of 18, 97% on 2 liters via nasal cannula. HEENT: Head is atraumatic and normocephalic. Eyes: Bilateral conjunctivae are clear. Bilateral pupils are equally round and reactive. NECK: Supple. No JVD. CARDIOVASCULAR: S1 and S2, without murmur. PULMONARY: Decreased bowel sounds with mild inspiratory wheezing noted. GASTROINTESTINAL: Soft and nontender without guarding. Positive bowel sounds. MUSCULOSKELETAL: No clubbing, no cyanosis noted. ASSESSMENT: 1. Chronic obstructive pulmonary disease exacerbation. 2. Anemia. 3. Generalized weakness. 4. Hypertension. 5. Diabetes. 6. Hyperlipidemia. 7. Anxiety. PLAN: We will keep the patient inpatient. We will continue antibiotics and we will provide pulmonary support to the patient. We will also monitor the patient's status. Treatment plans were discussed with the patient's nurse. Treatment plans were discussed with Dr. Nayak. JOB# [id number]
[2017-11-27] MEDS: Insulin Detemir 100 units/mL 10mL Vial SUBQ SCH (22:32)
[2017-11-28 06:12] LABS: pH 7.33 (7.35-7.45)
[2017-11-28] MEDS: Sodium Chloride 0.9% 1,000 ML IV SCH (06:15)
[2017-11-28 07:05] LABS: HEMOGLOBIN 10.9 gm/dL (12-16); MEAN CORPUSCULAR HGB CONC 32.9 pg (28.0-36.0); MEAN PLATELET VOLUME 6.8 fl; PLATELET COUNT 296 Th/cmm (150-400); RED BLOOD COUNT 4.17 Mil/cmm (3.80-5.20); RED CELL DISTRIBUTION WIDTH 14.3 % (11.5-20.0)
[2017-11-28 07:20] LABS: WHITE BLOOD COUNT 15.9 Th/cmm (4.8-10.8)
[2017-11-28 08:24] LABS: LYMPHOCYTE 8 % (20-50); MONOCYTE 6 % (2-10); NEUTROPHILS 86 % (40-80); PLATELET ESTIMATE ADEQUATE (NORMAL); TOTAL CELLS COUNTED 100
[2017-11-28] MEDS ORDERED: GLUCAGON HCl 1 MG KIT IM PRN (08:45)
[2017-11-28] MEDS ORDERED: Dextrose 50% 50 mL Abboject IVP PRN (08:45)
[2017-11-28] MEDS ORDERED: Dextrose 50% 50 mL Abboject IVP ONE (08:49)
[2017-11-28] MEDS: INSULIN ASPART SLIDING SCALE 100 UNITS/ML UNIT SUBQ SCH ×4 (08:57→20:49)
[2017-11-28] MEDS: Atorvastatin Calcium 10 MG TAB PO SCH (09:17)
--- NOTE | 2017-11-28 09:46 | Diagnostic Imaging Report ---
CHEST X-RAY: AP view INDICATION: Pneumonia COMPARISON: Chest x-ray 11/27/2017 FINDINGS: Persistent congestive changes are seen with small right effusion. Cardiomegaly is noted. IMPRESSION: Persistent congestive changes and small right effusion. Pneumonia of the right lung base cannot be excluded. Cardiomegaly.
--- NOTE | 2017-11-28 10:48 | General Progress Note ---
Subjective - Review of Systems Events since last encounter: comfortable in no distress Objective - Results Result Diagrams: 11/28/17 07:00 11/27/17 05:05 Recent Labs: Laboratory Last Values WBC 15.9 Th/cmm (4.8-10.8) H D 11/28/17 07:00 RBC 4.17 Mil/cmm (3.80-5.20) 11/28/17 07:00 Hgb 10.9 gm/dL (12-16) L 11/28/17 07:00 Hct 33.0 % (41.0-60) L 11/28/17 07:00 MCV 79.0 fl (81-100) L 11/28/17 07:00 MCH 26.0 pg (27.0-31.0) L 11/28/17 07:00 MCHC Differential 32.9 pg (28.0-36.0) 11/28/17 07:00 RDW 14.3 % (11.5-20.0) 11/28/17 07:00 Plt Count 296 Th/cmm (150-400) 11/28/17 07:00 MPV 6.8 fl 11/28/17 07:00 Neutrophils % CERTIFIED MEDICATION TECHNICIAN 11/28/17 07:00 Lymphocytes % CERTIFIED MEDICATION TECHNICIAN 11/28/17 07:00 Monocytes % CERTIFIED MEDICATION TECHNICIAN 11/28/17 07:00 Eosinophils % CERTIFIED MEDICATION TECHNICIAN 11/28/17 07:00 Basophils % CERTIFIED MEDICATION TECHNICIAN 11/28/17 07:00 Neutrophils (Manual) 86 % (40-80) H 11/28/17 07:00 Lymphocytes 8 % (20-50) L 11/28/17 07:00 Monocytes 6 % (2-10) 11/28/17 07:00 Platelet Estimate ADEQUATE (NORMAL) 11/28/17 07:00 Microcytosis 1+ 11/28/17 07:00 Specimen Source Arterial 11/28/17 06:00 Sample Site RB 11/28/17 06:00 pH 7.33 (7.35-7.45) L 11/28/17 06:00 pCO2 66.0 mmHg (35.0-45.0) H* 11/28/17 06:00 pO2 91.0 mmHg (80.0-100.0) 11/28/17 06:00 HCO3 30.2 mEq/L (20.0-26.0) H 11/28/17 06:00 Base Excess 6.8 mEq/L (-3.0-3.0) H 11/28/17 06:00 O2 Saturation 96.0 % (92.0-100.0) 11/28/17 06:00 Fredy Test NA 11/27/17 17:53 Vent Rate 14 11/28/17 06:00 Inspired O2 30 11/28/17 06:00 Tidal Volume 400 11/27/17 17:53 PEEP NA 11/27/17 17:53 Pressure (ins/psv/peep) 15 11/27/17 17:53 Critical Value PW 11/28/17 06:00 Sodium 128 mEq/L (136-145) L 11/27/17 05:05 Potassium 3.2 mEq/L (3.5-5.1) L 11/27/17 05:05 Chloride 93 mEq/L (98-107) L 11/27/17 05:05 Carbon Dioxide 27.8 mEq/L (21.0-31.0) 11/27/17 05:05 Anion Gap 10.4 (7.0-16.0) 11/27/17 05:05 BUN 16 mg/dL (7-25) 11/27/17 05:05 Creatinine 1.0 mg/dL (0.6-1.2) 11/27/17 05:05 Est GFR ( Amer) TNP 11/27/17 05:05 Est GFR (Non-Af Amer) TNP 11/27/17 05:05 BUN/Creatinine Ratio 16.0 11/27/17 05:05 Glucose 187 mg/dL (70-105) H 11/27/17 05:05 POC Glucose 55 MG/DL (70 - 105) L 11/28/17 08:42 Hemoglobin A1c % 7.5 % (4.0-6.0) H 11/27/17 05:05 Calcium 7.5 mg/dL (8.6-10.3) L 11/27/17 05:05 Total Bilirubin 0.4 mg/dL (0.3-1.0) 11/23/17 23:33 AST 28 U/L (13-39) 11/23/17 23:33 ALT 27 U/L (7-52) 11/23/17 23:33 Alkaline Phosphatase 148 U/L (34-104) H 11/23/17 23:33 Total Protein 5.8 gm/dL (6.0-8.3) L 11/23/17 23:33 Albumin 3.3 gm/dL (3.7-5.3) L 11/23/17 23:33 Globulin 2.5 gm/dL 11/23/17 23:33 Albumin/Globulin Ratio 1.3 (1.0-1.8) 11/23/17 23:33 Urine Source CATH 11/26/17 12:10 Urine Color YELLOW 11/26/17 12:10 Urine Clarity HAZY (CLEAR) 11/26/17 12:10 Urine pH 6.0 (4.6 - 8.0) 11/26/17 12:10 Ur Specific Mcdonald 1.025 (1.005-1.030) 11/26/17 12:10 Urine Protein 100 mg/dL (NEGATIVE) H 11/26/17 12:10 Urine Glucose (UA) 100 mg/dL (NEGATIVE) H 11/26/17 12:10 Urine Ketones NEGATIVE mg/dL (NEGATIVE) 11/26/17 12:10 Urine Blood LARGE (NEGATIVE) H 11/26/17 12:10 Urine Nitrate NEGATIVE (NEGATIVE) 11/26/17 12:10 Urine Bilirubin SMALL (NEGATIVE) H 11/26/17 12:10 Urine Urobilinogen 0.2 E.U./dL (0.2 - 1.0) 11/26/17 12:10 Ur Leukocyte Esterase NEGATIVE (NEGATIVE) 11/26/17 12:10 Urine RBC >100 /hpf (0-5) H 11/26/17 12:10 Urine WBC 2-5 /hpf (0-5) 11/26/17 12:10 Ur Epithelial Cells FEW /lpf (FEW) 11/26/17 12:10 Urine Bacteria FEW /hpf (NONE SEEN) 11/26/17 12:10 Hyaline Casts 2-5 /lpf (0-2) H 11/24/17 02:50 - Physical Exam Vitals and I&O: Vital Signs Temp 96.6 F 11/28/17 05:00 Pulse 70 11/28/17 09:17 Resp 25 11/28/17 10:31 BP 174/71 11/28/17 09:18 Pulse Ox 100 11/28/17 10:31 Intake & Output 11/27/17 11/28/17 11/28/17 18:59 06:59 18:59 Intake Total 200 Output Total 1050 550 Balance -850 -550 Weight (lbs) 107.048 kg 107.048 kg Intake: Intake, IV Amount 100 Piperacillin Sodium/ 100 Tazobact 4.5 gm In Sodium Chloride 0.9% 100 ml @ 100 mls/hr IV Q8HR [facility] Rx #:[id number] Oral 100 Output: Urine 1050 550 Other: Stool Characteristics Soft Active Medications: Current Medications Albuterol/Ipratropium (Duoneb Neb) 3 ml HHN Q4HRT PRN PRN Reason: Shortness of Breath Stop: 01/23/18 05:17 Last Admin: 11/27/17 19:06 Dose: 3 ml Alprazolam (Xanax) 0.25 mg PO Q8HR PRN; Protocol PRN Reason: FOR ANXIETY Stop: 01/25/18 21:53 Last Admin: 11/28/17 00:47 Dose: 0.25 mg Aspirin (Ecotrin) 81 mg PO DAILY [facility] Stop: 01/25/18 08:59 Last Admin: 11/28/17 09:17 Dose: 81 mg Atorvastatin Calcium (Lipitor) 10 mg PO DAILY [facility] Stop: 01/25/18 08:59 Last Admin: 11/28/17 09:17 Dose: 10 mg Carvedilol (Coreg) 25 mg PO BID [facility] Stop: 01/25/18 08:59 Last Admin: 11/28/17 09:17 Dose: 25 mg Dextrose (D50w) 50 ml IVP DAILY PRN PRN Reason: Blood Glucose less than 70 Stop: 01/27/18 08:44 Last Admin: 11/28/17 09:19 Dose: 50 ml Dextrose (Glutose 40%) 18.75 gm PO DAILY PRN PRN Reason: Blood Glucose less than 70 Stop: 01/27/18 08:44 Furosemide (Lasix) 40 mg PO DAILY [facility] Stop: 01/25/18 08:59 Last Admin: 11/28/17 09:18 Dose: 40 mg Glucagon (Glucagen) 1 mg IM DAILY PRN PRN Reason: Blood Glucose less than 70 Stop: 01/27/18 08:44 Sodium Chloride (Nacl 0.9%) 1,000 mls @ 75 mls/hr IV .[id number] [facility] Stop: 01/23/18 12:29 Last Admin: 11/28/17 06:15 Dose: 75 mls/hr Levofloxacin (Levaquin Pb) 250 mg in 50 mls @ 50 mls/hr IV Q24HR [facility] Stop: 01/25/18 20:59 Last Admin: 11/27/17 21:16 Dose: 50 mls/hr Piperacillin Sod/Tazobactam (Sod 4.5 gm/ Sodium Chloride) 100 mls @ 100 mls/hr IV Q8HR [facility] Stop: 01/26/18 20:59 Last Admin: 11/28/17 06:15 Dose: 100 mls/hr Insulin Aspart (Novolog Insulin Sliding Scale) 0 units SUBQ ACHS [facility] PRN Reason: Protocol Stop: 01/24/18 16:29 Last Admin: 11/28/17 08:57 Dose: Not Given Insulin Detemir (Levemir Insulin) 40 units SUBQ HS [facility] Stop: 01/25/18 20:59 Last Admin: 11/27/17 22:32 Dose: 40 units Lisinopril (Zestril) 15 mg PO DAILY [facility] Stop: 01/23/18 11:59 Last Admin: 11/28/17 09:15 Dose: 15 mg Lorazepam (Ativan) 0.5 mg IVP BID PRN; Protocol PRN Reason: Anxiety Stop: 01/25/18 21:17 Morphine Sulfate (Morphine) 1 mg IVP Q4HR PRN PRN Reason: Pain (Moderate) Stop: 01/23/18 11:51 Last Admin: 11/24/17 22:32 Dose: 1 mg Morphine Sulfate (Morphine) 2 mg IVP Q4HR PRN PRN Reason: Pain (Severe) Stop: 01/23/18 11:51 Last Admin: 11/26/17 04:28 Dose: 2 mg Ondansetron HCl (Zofran) 4 mg IV Q4H PRN PRN Reason: Nausea / Vomiting Stop: 01/23/18 11:56 Pentoxifylline (Trental) 400 mg PO BID [facility] Stop: 01/25/18 08:59 Last Admin: 11/28/17 09:15 Dose: 400 mg Sitagliptin Phosphate (Januvia) 25 mg PO DAILY [facility] Stop: 01/25/18 08:59 Last Admin: 11/28/17 09:19 Dose: Not Given General: No acute distress HEENT: Atraumatic Neck: Supple Cardiovascular: Regular rate - Procedures Procedures: Procedures Procedure Code Date DRAINAGE OF SKIN ABSCESS 95215 07/03/05 OTHER SKIN & SUBQ I D 86.04 07/03/05 Assessment/Plan - Problem List Patient Problems: All Active Problems Anemia (Acute) D64.9 Anxiety (Acute) F41.9 COPD exacerbation (Acute) J44.1 Diabetes (Acute) E11.9 General weakness (Acute) HTN (hypertension) (Acute) I10 Hyperlipidemia (Acute) E78.5 - Plan Plan: cpm Nutritional Asmnt/Malnutr-PDOC - Dietary Evaluation Malnutrition Findings (Please click <Entered> for more info): Nutritional Asmnt/Malnutrition Start: 11/25/17 18: 26 Text: Status: Complete Freq: Document 11/25/17 18:26 JAYA (Rec: 11/25/17 18:33 [id number] [email or web address]) Nutritional Asmnt/Malnutrition Patient General Information Nutritional Screening High Risk Consult Diagnosis anemia, COPD, respiratory acidosis Pertinent Medical Hx/Surgical Hx anemia, DM per family Subjective Information consult received for diebetic foot ulcer, skin integrity/ wound. . pt seen resting in bed at the time of visit, family at bedside. family reported pt got regular diet tray this morning, wanted diabetic diet. Pt only had some oatmeal for breakfast and squash and applesauce for lunch, low appetite d/t disease. Family denied pt having chewing problem with dentures. Per notes, PO intake 25-50% 1/4 Current Diet Order/ Nutrition Support Regular Pertinent Medications novolog, nacl 0.9% Pertinent Labs 1/2 Na 128, K 3.2, Cl 95, BUN 15, Cr 0.8, Glucose 83, ca 8.0 1/4 POC 165-167 Nutritional Hx/Data Height 1.65 m Height (Calculated Centimeters) 165.1 Current Weight (lbs) 77.111 kg Weight (Calculated Kilograms) 77.1 Weight (Calculated Grams) 75801.7 [place] Body Weight 125 % [place] Body Weight 136 Body Mass Index (BMI) 28.3 Weight Status Overweight GI Symptoms GI Symptoms None Difficult in: None Skin Integrity/Comment: decubitus to right foot Current %PO Poor (25-49%) Estimated Nutritional Goals BEE in Kcals: Using Current wt Calories/Kcals/Kg 25 Kcals Calculated 1924 Protein: Using Current wt Protein g/k Protein Calculated 77 Fluid: ml 1924 Nutritional Problem 1. Problem Problem inadquate food intake Etiology poor appetite Signs/Symptoms: PO intake <50% Malnutrition Alert Protein-Calorie Malnutrition N/A Is there a minimum of two criteria No selected? Query Text:Check all the applicable criteria. A minimum of two criteria are recommended for diagnosis of either severe or non-severe malnutrition. Intervention/Recommendation Comments 1. Recommend CCHO diet with Boost Glucose Control BID. Notified RN. 2. Monitor PO intake, wt, labs and skin integrity 3. F/U as high risk in 2-3 days, 11/27-11/28 Expected Outcomes/Goals Expected Outcomes/Goals 1. PO intake to improve, to meet at least 75% of nutritional needs. 2. Wt stability, skin to remain intact, labs to improve
[2017-11-28] MEDS: Morphine Sulfate 2 mg/mL 1mL Syr IVP PRN (11:49)
[2017-11-28 13:35] LABS: ALB/GLOB RATIO 1.1 (1.0-1.8); ALKALINE PHOSPHATASE 131 U/L (34-104); ANION GAP 7.8 (7.0-16.0); BILIRUBIN,TOTAL 0.4 mg/dL (0.3-1.0); BUN - UREA NITROGEN 21 mg/dL (7-25); CALCIUM SERUM 7.9 mg/dL (8.6-10.3); CARBON DIOXIDE 30.6 mEq/L (21.0-31.0); CHLORIDE 98 mEq/L (98-107); CREATININE - SERUM 1.3 mg/dL (0.6-1.2); GLUCOSE 71 mg/dL (70-105); POTASSIUM SERUM 3.4 mEq/L (3.5-5.1); SGOT 14 U/L (13-39); SGPT/ALT 18 U/L (7-52); SODIUM SERUM 133 mEq/L (136-145); TOTAL PROTEIN,SERUM 5.7 gm/dL (6.0-8.3)
[2017-11-28] MEDS ORDERED: Dextrose 5% 1,000 ML IV SCH (15:15)
[2017-11-28] MEDS: Levofloxacin 250mg/50mL 250 MG/50 ML BAG IV SCH (20:35)
[2017-11-28] MEDS: Insulin Detemir 100 units/mL 10mL Vial SUBQ SCH (20:50)
--- NOTE | 2017-11-29 00:53 | Consultation ---
DATE OF CONSULTATION: 11/28/2017 REFERRING PHYSICIAN: Dr. Nayak. Thank you very much for this consultation. HISTORY OF PRESENT ILLNESS: This is a 72-year-old female with history of CHF, diabetes, foot ulcers, presented with respiratory distress, shortness of breath, congestion, some hypertension, and admitted for further treatment and management. The patient was having some shallow breathing and placed on the BiPAP yesterday. ABG showed CO2 retention. She is improved on the current ABGs, but the patient is trying to take the mask on and off. PAST MEDICAL HISTORY: As above. SOCIAL HISTORY: No smoking or drinking. PHYSICAL EXAMINATION: GENERAL: Awake, alert, in no acute distress. VITAL SIGNS: Temperature 96.8, pulse is 68, respirations 16, blood pressure is 150/61, saturation is 100%. HEENT: Atraumatic, normocephalic. Pupils react to light and accommodation. Ears, nose and throat are normal. NECK: Supple. No JVD. CHEST: There is rhonchi and rales bilaterally. HEART: Regular rate and rhythm. ABDOMEN: Soft. EXTREMITIES: 1+ edema. LABORATORY DATA: WBC 15.7, hemoglobin 10.9, platelets 296. ABGs: pH 7.33, pCO2 of 66, pO2 is 91, bicarbonate 30, saturation 96%. Sodium 133, potassium 3.4, BUN is 21, creatinine is 1.3. Chest x-ray showed pulmonary edema, cardiomegaly, bilateral effusion. IMPRESSION: 1. This is a 72-year-old female with respiratory failure. 2. Pulmonary edema. 3. Congestive heart failure. 4. Possible pneumonia. 5. Diabetes. PLAN: 1. Change IV fluids to D5W at lower rate. 2. Continue Lasix. 3. Nebulizer treatment. 4. Continue BiPAP and avoid feeding patient until she is off the BiPAP. Prognosis is guarded. I discussed with the family at bedside. I will follow the patient with you. Thank you very much for this consultation. JOB# [id number]
[2017-11-29] MEDS: INSULIN ASPART SLIDING SCALE 100 UNITS/ML UNIT SUBQ SCH ×4 (06:55→21:28)
[2017-11-29 07:25] LABS: % BASOPHILS 0.1 % (0.0-2.0); % EOSINOPHILS 0.1 % (0.0-5.0); % LYMPHOCYTES 8.6 % (20.0-50.0); % MONOCYTES 6.2 % (2.0-10.0); HEMATOCRIT 32.5 % (41.0-60); HEMOGLOBIN 10.5 gm/dL (12-16); LYMPHOCYTE ABSOLUTE 1.3 Th/cmm (1.5-3.0); MEAN CELL VOLUME 78.8 fl (81-100); MEAN CORPUSCULAR HEMOGLOBIN 25.5 pg (27.0-31.0); MEAN CORPUSCULAR HGB CONC 32.4 pg (28.0-36.0); MEAN PLATELET VOLUME 7.1 fl; MONOCYTE ABSOLUTE 0.9 Th/cmm (0.3-1.0); NEUTROPHILE ABSOLUTE 12.5 Th/cmm (1.8-8.0); PLATELET COUNT 333 Th/cmm (150-400); RED BLOOD COUNT 4.12 Mil/cmm (3.80-5.20); RED CELL DISTRIBUTION WIDTH 14.8 % (11.5-20.0)
[2017-11-29 07:27] LABS: WHITE BLOOD COUNT 14.7 Th/cmm (4.8-10.8)
[2017-11-29 07:40] LABS: ANION GAP 8.2 (7.0-16.0); BUN - UREA NITROGEN 15 mg/dL (7-25); CHLORIDE 90 mEq/L (98-107); CREATININE - SERUM 1.2 mg/dL (0.6-1.2); GLUCOSE 83 mg/dL (70-105); SODIUM SERUM 139 mEq/L (136-145)
[2017-11-29 07:47] LABS: CARBON DIOXIDE 43.2 mEq/L (21.0-31.0); POTASSIUM SERUM 2.4 mEq/L (3.5-5.1)
[2017-11-29] MEDS ORDERED: KCL 20mEq/100mL Premix 20 MEQ/100 ML PIGGYBACK IV SCH ×3 (08:15→11:15)
--- NOTE | 2017-11-29 08:46 | Diagnostic Imaging Report ---
Portable chest x-ray HISTORY: Shortness of breath Compared with prior exam generally 2017, patient is rotated. The heart is enlarged. Slight density noted in the right lower hemithorax. A pleural effusion cannot be excluded. IMPRESSION: 1. Question right pleural effusion 2. Cardiomegaly. A degree of congestive heart failure cannot be excluded. Clinical correlation is needed.
[2017-11-29] MEDS ORDERED: POTASSIUM CHLORIDE IV SCH (09:00)
[2017-11-29] MEDS ORDERED: SODIUM CHLORIDE 0.9% IV SCH (09:00)
[2017-11-29] MEDS ORDERED: LIDOCAINE IV SCH (09:00)
[2017-11-29 09:50] LABS: pH 7.54 (7.35-7.45)
[2017-11-29 09:51] LABS: ALLEN TEST Y
[2017-11-29] MEDS: Atorvastatin Calcium 10 MG TAB PO SCH (10:34)
[2017-11-29] MEDS ORDERED: Potassium Chloride 40 MEQ, Lidocaine 1% 20mL Vial 25 MG in Sodium Chloride 0.9% 250 ML IV ONE (11:01)
--- NOTE | 2017-11-29 11:34 | Infectious Disease Prog Note ---
Infectious Disease Subjective - Review of Systems Service Date: 11/29/17 Subjective: Patient is alert and awake. Not in acute distress. No fever. Infectious Disease Objective - Results Result Diagrams: 11/29/17 06:30 11/29/17 06:30 Recent Labs: Laboratory Last Values WBC 14.7 Th/cmm (4.8-10.8) H 11/29/17 06:30 RBC 4.12 Mil/cmm (3.80-5.20) 11/29/17 06:30 Hgb 10.5 gm/dL (12-16) L 11/29/17 06:30 Hct 32.5 % (41.0-60) L 11/29/17 06:30 MCV 78.8 fl (81-100) L 11/29/17 06:30 MCH 25.5 pg (27.0-31.0) L 11/29/17 06:30 MCHC Differential 32.4 pg (28.0-36.0) 11/29/17 06:30 RDW 14.8 % (11.5-20.0) 11/29/17 06:30 Plt Count 333 Th/cmm (150-400) 11/29/17 06:30 MPV 7.1 fl 11/29/17 06:30 Neutrophils % 85.0 % (40.0-80.0) H 11/29/17 06:30 Lymphocytes % 8.6 % (20.0-50.0) L 11/29/17 06:30 Monocytes % 6.2 % (2.0-10.0) 11/29/17 06:30 Eosinophils % 0.1 % (0.0-5.0) 11/29/17 06:30 Basophils % 0.1 % (0.0-2.0) 11/29/17 06:30 Neutrophils (Manual) 86 % (40-80) H 11/28/17 07:00 Lymphocytes 8 % (20-50) L 11/28/17 07:00 Monocytes 6 % (2-10) 11/28/17 07:00 Platelet Estimate ADEQUATE (NORMAL) 11/28/17 07:00 Microcytosis 1+ 11/28/17 07:00 Specimen Source AERTERIAL 11/29/17 09:40 Sample Site RB 11/29/17 09:40 pH 7.54 (7.35-7.45) H 11/29/17 09:40 pCO2 59.0 mmHg (35.0-45.0) H* 11/29/17 09:40 pO2 60.0 mmHg (80.0-100.0) L 11/29/17 09:40 HCO3 43.0 mEq/L (20.0-26.0) H 11/29/17 09:40 Base Excess 21.0 mEq/L (-3.0-3.0) H 11/29/17 09:40 O2 Saturation 93.0 % (92.0-100.0) 11/29/17 09:40 Fredy Test Y 11/29/17 09:40 Vent Rate N/A 11/29/17 09:40 Inspired O2 30 11/29/17 09:40 Tidal Volume N/A 11/29/17 09:40 PEEP N/A 11/29/17 09:40 Pressure (ins/psv/peep) N/A 11/29/17 09:40 Critical Value O.VARELA 11/29/17 09:40 Sodium 139 mEq/L (136-145) 11/29/17 06:30 Potassium 2.4 mEq/L (3.5-5.1) L* D 11/29/17 06:30 Chloride 90 mEq/L (98-107) L 11/29/17 06:30 Carbon Dioxide 43.2 mEq/L (21.0-31.0) H 11/29/17 06:30 Anion Gap 8.2 (7.0-16.0) 11/29/17 06:30 BUN 15 mg/dL (7-25) 11/29/17 06:30 Creatinine 1.2 mg/dL (0.6-1.2) 11/29/17 06:30 Est GFR ( Amer) TNP 11/29/17 06:30 Est GFR (Non-Af Amer) TNP 11/29/17 06:30 BUN/Creatinine Ratio 12.5 11/29/17 06:30 Glucose 83 mg/dL (70-105) 11/29/17 06:30 POC Glucose 79 MG/DL (70 - 105) 11/29/17 06:47 Hemoglobin A1c % 7.5 % (4.0-6.0) H 11/27/17 05:05 Calcium 8.0 mg/dL (8.6-10.3) L 11/29/17 06:30 Total Bilirubin 0.4 mg/dL (0.3-1.0) 11/28/17 07:00 AST 14 U/L (13-39) 11/28/17 07:00 ALT 18 U/L (7-52) 11/28/17 07:00 Alkaline Phosphatase 131 U/L (34-104) H 11/28/17 07:00 B-Natriuretic Peptide 919.0 pg/mL (5.0-100.0) H 11/29/17 06:30 Total Protein 5.7 gm/dL (6.0-8.3) L 11/28/17 07:00 Albumin 3.0 gm/dL (3.7-5.3) L 11/28/17 07:00 Globulin 2.7 gm/dL 11/28/17 07:00 Albumin/Globulin Ratio 1.1 (1.0-1.8) 11/28/17 07:00 Urine Source CATH 11/26/17 12:10 Urine Color YELLOW 11/26/17 12:10 Urine Clarity HAZY (CLEAR) 11/26/17 12:10 Urine pH 6.0 (4.6 - 8.0) 11/26/17 12:10 Ur Specific [place] 1.025 (1.005-1.030) 11/26/17 12:10 Urine Protein 100 mg/dL (NEGATIVE) H 11/26/17 12:10 Urine Glucose (UA) 100 mg/dL (NEGATIVE) H 11/26/17 12:10 Urine Ketones NEGATIVE mg/dL (NEGATIVE) 11/26/17 12:10 Urine Blood LARGE (NEGATIVE) H 11/26/17 12:10 Urine Nitrate NEGATIVE (NEGATIVE) 11/26/17 12:10 Urine Bilirubin SMALL (NEGATIVE) H 11/26/17 12:10 Urine Urobilinogen 0.2 E.U./dL (0.2 - 1.0) 11/26/17 12:10 Ur Leukocyte Esterase NEGATIVE (NEGATIVE) 11/26/17 12:10 Urine RBC >100 /hpf (0-5) H 11/26/17 12:10 Urine WBC 2-5 /hpf (0-5) 11/26/17 12:10 Ur Epithelial Cells FEW /lpf (FEW) 11/26/17 12:10 Urine Bacteria FEW /hpf (NONE SEEN) 11/26/17 12:10 Hyaline Casts 2-5 /lpf (0-2) H 11/24/17 02:50 - Physical Exam Vitals and I&O: Vital Signs Temp 96.2 F 11/29/17 08:00 Pulse 87 11/29/17 10:34 Resp 25 11/29/17 09:00 BP 182/66 11/29/17 10:34 Pulse Ox 98 11/29/17 09:00 Intake & Output 11/28/17 11/29/17 11/29/17 18:59 06:59 18:59 Intake Total 350 250 Output Total 5350 4050 Balance -5000 -3800 Weight (lbs) 107.048 kg 107.048 kg Intake: Intake, IV Amount 200 250 Levofloxacin 250mg/50mL 50 250 mg In 50 ml @ 50 mls/ hr IV Q24HR [facility] Rx#: [id number] Piperacillin Sodium/ 200 200 Tazobact 4.5 gm In Sodium Chloride 0.9% 100 ml @ 100 mls/hr IV Q8HR [facility] Rx #:[id number] Oral 150 Output: Urine 5350 4050 Other: # Bowel Movements 0 Active Medications: Current Medications Albuterol/Ipratropium (Duoneb Neb) 3 ml HHN Q4HRT PRN PRN Reason: Shortness of Breath Stop: 01/23/18 05:17 Last Admin: 11/27/17 19:06 Dose: 3 ml Alprazolam (Xanax) 0.25 mg PO Q8HR PRN; Protocol PRN Reason: FOR ANXIETY Stop: 01/25/18 21:53 Last Admin: 11/28/17 18:35 Dose: 0.25 mg Aspirin (Ecotrin) 81 mg PO DAILY [facility] Stop: 01/25/18 08:59 Last Admin: 11/29/17 10:42 Dose: 81 mg Atorvastatin Calcium (Lipitor) 10 mg PO DAILY [facility] Stop: 01/25/18 08:59 Last Admin: 11/29/17 10:34 Dose: 10 mg Carvedilol (Coreg) 25 mg PO BID [facility] Stop: 01/25/18 08:59 Last Admin: 11/29/17 10:34 Dose: 25 mg Dextrose (D50w) 50 ml IVP DAILY PRN PRN Reason: Blood Glucose less than 70 Stop: 01/27/18 08:44 Last Admin: 11/28/17 09:19 Dose: 50 ml Dextrose (Glutose 40%) 18.75 gm PO DAILY PRN PRN Reason: Blood Glucose less than 70 Stop: 01/27/18 08:44 Furosemide (Lasix) 20 mg IVP DAILY [facility] Stop: 01/29/18 08:59 Glucagon (Glucagen) 1 mg IM DAILY PRN PRN Reason: Blood Glucose less than 70 Stop: 01/27/18 08:44 Levofloxacin (Levaquin Pb) 250 mg in 50 mls @ 50 mls/hr IV Q24HR [facility] Stop: 01/25/18 20:59 Last Infusion: 11/28/17 21:40 Dose: Infused Piperacillin Sod/Tazobactam (Sod 4.5 gm/ Sodium Chloride) 100 mls @ 100 mls/hr IV Q8HR [facility] Stop: 01/26/18 20:59 Last Infusion: 11/29/17 06:30 Dose: Infused Dextrose (D5w) 1,000 mls @ 40 mls/hr IV .Q24H [facility] Stop: 01/28/18 10:58 Insulin Aspart (Novolog Insulin Sliding Scale) 0 units SUBQ ACHS SYLVIA PRN Reason: Protocol Stop: 01/24/18 16:29 Last Admin: 11/29/17 06:55 Dose: Not Given Insulin Detemir (Levemir Insulin) 40 units SUBQ HS [facility] Stop: 01/25/18 20:59 Last Admin: 11/28/17 20:50 Dose: Not Given Lisinopril (Zestril) 15 mg PO DAILY [facility] Stop: 01/23/18 11:59 Last Admin: 11/29/17 10:29 Dose: 15 mg Lorazepam (Ativan) 0.5 mg IVP BID PRN; Protocol PRN Reason: Anxiety Stop: 01/25/18 21:17 Last Admin: 11/28/17 20:49 Dose: 0.5 mg Morphine Sulfate (Morphine) 1 mg IVP Q4HR PRN PRN Reason: Pain (Moderate) Stop: 01/23/18 11:51 Last Admin: 11/24/17 22:32 Dose: 1 mg Morphine Sulfate (Morphine) 2 mg IVP Q4HR PRN PRN Reason: Pain (Severe) Stop: 01/23/18 11:51 Last Admin: 11/28/17 11:49 Dose: 2 mg Ondansetron HCl (Zofran) 4 mg IV Q4H PRN PRN Reason: Nausea / Vomiting Stop: 01/23/18 11:56 Pentoxifylline (Trental) 400 mg PO BID [facility] Stop: 01/25/18 08:59 Last Admin: 11/29/17 10:34 Dose: 400 mg Sitagliptin Phosphate (Januvia) 25 mg PO DAILY [facility] Stop: 01/25/18 08:59 Last Admin: 11/29/17 09:54 Dose: Not Given General: no acute distress, well developed, well nourished HEENT: atraumatic, normocephalic, PERRLA, EOMI, moist mucous membrane Neck: supple, no thyromegaly Cardiovascular: S1S2, regular Lungs: clear to percussion, crackles Abdomen: soft, no tender, no distended, no mass, no rebound, no hepatomegaly Extremities: no cyanosis, no clubbing, no edema Neurological: awake, alert, oriented Skin: other (right leg ulcer) - Procedures Procedures: Procedures Procedure Code Date DRAINAGE OF SKIN ABSCESS 38447 07/03/05 OTHER SKIN & SUBQ I D 86.04 07/03/05 Infectious Disease Assmt/Plan - Problem List Patient Problems: All Active Problems Anemia (Acute) D64.9 Anxiety (Acute) F41.9 COPD exacerbation (Acute) J44.1 Diabetes (Acute) E11.9 General weakness (Acute) HTN (hypertension) (Acute) I10 Hyperlipidemia (Acute) E78.5 - Assessment Assessment: 1. Pneumonia . 2. altered mental status, likey 2/2 CO2 Narcosis. cannot rule out any other etiologies. 3. CHF 4. brice cardia ( borderline). 5. Right leg wound, suspect venous stasis ulcer and pyoderma gangrenosum. - Plan Plan: Continue Zosyn and Levaquin. Nutritional Asmnt/Malnutr-PDOC - Dietary Evaluation Malnutrition Findings (Please click <Entered> for more info): Nutritional Asmnt/Malnutrition Start: 11/25/17 18: 26 Text: Status: Complete Freq: Document 11/25/17 18:26 SAMSON (Rec: 11/25/17 18:33 LCHENG [email or web address]) Nutritional Asmnt/Malnutrition Patient General Information Nutritional Screening High Risk Consult Diagnosis anemia, COPD, respiratory acidosis Pertinent Medical Hx/Surgical Hx anemia, DM per family Subjective Information consult received for diebetic foot ulcer, skin integrity/ wound. . pt seen resting in bed at the time of visit, family at bedside. family reported pt got regular diet tray this morning, wanted diabetic diet. Pt only had some oatmeal for breakfast and squash and applesauce for lunch, low appetite d/t disease. Family denied pt having chewing problem with dentures. Per notes, PO intake 25-50% 11/25 Current Diet Order/ Nutrition Support Regular Pertinent Medications novolog, nacl 0.9% Pertinent Labs 11/23 Na 128, K 3.2, Cl 95, BUN 15, Cr 0.8, Glucose 83, ca 8.0 11/25 POC 165-167 Nutritional Hx/Data Height 1.65 m Height (Calculated Centimeters) 165.1 Current Weight (lbs) 77.111 kg Weight (Calculated Kilograms) 77.1 Weight (Calculated Grams) 50854.7 [place] Body Weight 125 % [place] Body Weight 136 Body Mass Index (BMI) 28.3 Weight Status Overweight GI Symptoms GI Symptoms None Difficult in: None Skin Integrity/Comment: decubitus to right foot Current %PO Poor (25-49%) Estimated Nutritional Goals BEE in Kcals: Using Current wt Calories/Kcals/Kg 25 Kcals Calculated 1925 Protein: Using Current wt Protein g/k Protein Calculated 77 Fluid: ml 1924 Nutritional Problem 1. Problem Problem inadquate food intake Etiology poor appetite Signs/Symptoms: PO intake <50% Malnutrition Alert Protein-Calorie Malnutrition N/A Is there a minimum of two criteria No selected? Query Text:Check all the applicable criteria. A minimum of two criteria are recommended for diagnosis of either severe or non-severe malnutrition. Intervention/Recommendation Comments 1. Recommend CCHO diet with Boost Glucose Control BID. Notified RN. 2. Monitor PO intake, wt, labs and skin integrity 3. F/U as high risk in 2-3 days, 11/27-11/28 Expected Outcomes/Goals Expected Outcomes/Goals 1. PO intake to improve, to meet at least 75% of nutritional needs. 2. Wt stability, skin to remain intact, labs to improve
--- NOTE | 2017-11-29 11:38 | Internal Medicine Prog Note ---
Internal Medicine Subjective - Subjective Service Date: 11/29/17 Patient is:: awake Patient Complaints of:: congestion Per staff patient has:: tolerating meds Internal Medicine Objective - Results Result Diagrams: 11/29/17 06:30 11/29/17 06:30 Recent Labs: Laboratory Last Values WBC 14.7 Th/cmm (4.8-10.8) H 11/29/17 06:30 RBC 4.12 Mil/cmm (3.80-5.20) 11/29/17 06:30 Hgb 10.5 gm/dL (12-16) L 11/29/17 06:30 Hct 32.5 % (41.0-60) L 11/29/17 06:30 MCV 78.8 fl (81-100) L 11/29/17 06:30 MCH 25.5 pg (27.0-31.0) L 11/29/17 06:30 MCHC Differential 32.4 pg (28.0-36.0) 11/29/17 06:30 RDW 14.8 % (11.5-20.0) 11/29/17 06:30 Plt Count 333 Th/cmm (150-400) 11/29/17 06:30 MPV 7.1 fl 11/29/17 06:30 Neutrophils % 85.0 % (40.0-80.0) H 11/29/17 06:30 Lymphocytes % 8.6 % (20.0-50.0) L 11/29/17 06:30 Monocytes % 6.2 % (2.0-10.0) 11/29/17 06:30 Eosinophils % 0.1 % (0.0-5.0) 11/29/17 06:30 Basophils % 0.1 % (0.0-2.0) 11/29/17 06:30 Neutrophils (Manual) 86 % (40-80) H 11/28/17 07:00 Lymphocytes 8 % (20-50) L 11/28/17 07:00 Monocytes 6 % (2-10) 11/28/17 07:00 Platelet Estimate ADEQUATE (NORMAL) 11/28/17 07:00 Microcytosis 1+ 11/28/17 07:00 Specimen Source AERTERIAL 11/29/17 09:40 Sample Site RB 11/29/17 09:40 pH 7.54 (7.35-7.45) H 11/29/17 09:40 pCO2 59.0 mmHg (35.0-45.0) H* 11/29/17 09:40 pO2 60.0 mmHg (80.0-100.0) L 11/29/17 09:40 HCO3 43.0 mEq/L (20.0-26.0) H 11/29/17 09:40 Base Excess 21.0 mEq/L (-3.0-3.0) H 11/29/17 09:40 O2 Saturation 93.0 % (92.0-100.0) 11/29/17 09:40 Fredy Test Y 11/29/17 09:40 Vent Rate N/A 11/29/17 09:40 Inspired O2 30 11/29/17 09:40 Tidal Volume N/A 11/29/17 09:40 PEEP N/A 11/29/17 09:40 Pressure (ins/psv/peep) N/A 11/29/17 09:40 Critical Value O.VARELA 11/29/17 09:40 Sodium 139 mEq/L (136-145) 11/29/17 06:30 Potassium 2.4 mEq/L (3.5-5.1) L* D 11/29/17 06:30 Chloride 90 mEq/L (98-107) L 11/29/17 06:30 Carbon Dioxide 43.2 mEq/L (21.0-31.0) H 11/29/17 06:30 Anion Gap 8.2 (7.0-16.0) 11/29/17 06:30 BUN 15 mg/dL (7-25) 11/29/17 06:30 Creatinine 1.2 mg/dL (0.6-1.2) 11/29/17 06:30 Est GFR ( Amer) TNP 11/29/17 06:30 Est GFR (Non-Af Amer) TNP 11/29/17 06:30 BUN/Creatinine Ratio 12.5 11/29/17 06:30 Glucose 83 mg/dL (70-105) 11/29/17 06:30 POC Glucose 79 MG/DL (70 - 105) 11/29/17 06:47 Hemoglobin A1c % 7.5 % (4.0-6.0) H 11/27/17 05:05 Calcium 8.0 mg/dL (8.6-10.3) L 11/29/17 06:30 Total Bilirubin 0.4 mg/dL (0.3-1.0) 11/28/17 07:00 AST 14 U/L (13-39) 11/28/17 07:00 ALT 18 U/L (7-52) 11/28/17 07:00 Alkaline Phosphatase 131 U/L (34-104) H 11/28/17 07:00 B-Natriuretic Peptide 919.0 pg/mL (5.0-100.0) H 11/29/17 06:30 Total Protein 5.7 gm/dL (6.0-8.3) L 11/28/17 07:00 Albumin 3.0 gm/dL (3.7-5.3) L 11/28/17 07:00 Globulin 2.7 gm/dL 11/28/17 07:00 Albumin/Globulin Ratio 1.1 (1.0-1.8) 11/28/17 07:00 Urine Source CATH 11/26/17 12:10 Urine Color YELLOW 11/26/17 12:10 Urine Clarity HAZY (CLEAR) 11/26/17 12:10 Urine pH 6.0 (4.6 - 8.0) 11/26/17 12:10 Ur Specific [place] 1.025 (1.005-1.030) 11/26/17 12:10 Urine Protein 100 mg/dL (NEGATIVE) H 11/26/17 12:10 Urine Glucose (UA) 100 mg/dL (NEGATIVE) H 11/26/17 12:10 Urine Ketones NEGATIVE mg/dL (NEGATIVE) 11/26/17 12:10 Urine Blood LARGE (NEGATIVE) H 11/26/17 12:10 Urine Nitrate NEGATIVE (NEGATIVE) 11/26/17 12:10 Urine Bilirubin SMALL (NEGATIVE) H 11/26/17 12:10 Urine Urobilinogen 0.2 E.U./dL (0.2 - 1.0) 11/26/17 12:10 Ur Leukocyte Esterase NEGATIVE (NEGATIVE) 11/26/17 12:10 Urine RBC >100 /hpf (0-5) H 11/26/17 12:10 Urine WBC 2-5 /hpf (0-5) 11/26/17 12:10 Ur Epithelial Cells FEW /lpf (FEW) 11/26/17 12:10 Urine Bacteria FEW /hpf (NONE SEEN) 11/26/17 12:10 Hyaline Casts 2-5 /lpf (0-2) H 11/24/17 02:50 - Physical Exam Vitals and I&O: Vital Signs Temp 96.2 F 11/29/17 08:00 Pulse 87 11/29/17 10:34 Resp 25 11/29/17 09:00 BP 182/66 11/29/17 10:34 Pulse Ox 98 11/29/17 09:00 Intake & Output 11/28/17 11/29/17 11/29/17 18:59 06:59 18:59 Intake Total 350 250 Output Total 5350 4050 Balance -5000 -3800 Weight (lbs) 236 lb 236 lb Intake: Intake, IV Amount 200 250 Levofloxacin 250mg/50mL 50 250 mg In 50 ml @ 50 mls/ hr IV Q24HR [facility] Rx#: [id number] Piperacillin Sodium/ 200 200 Tazobact 4.5 gm In Sodium Chloride 0.9% 100 ml @ 100 mls/hr IV Q8HR [facility] Rx #:[id number] Oral 150 Output: Urine 5350 4050 Other: # Bowel Movements 0 Active Medications: Current Medications Albuterol/Ipratropium (Duoneb Neb) 3 ml HHN Q4HRT PRN PRN Reason: Shortness of Breath Stop: 01/23/18 05:17 Last Admin: 11/27/17 19:06 Dose: 3 ml Alprazolam (Xanax) 0.25 mg PO Q8HR PRN; Protocol PRN Reason: FOR ANXIETY Stop: 01/25/18 21:53 Last Admin: 11/28/17 18:35 Dose: 0.25 mg Aspirin (Ecotrin) 81 mg PO DAILY [facility] Stop: 01/25/18 08:59 Last Admin: 11/29/17 10:42 Dose: 81 mg Atorvastatin Calcium (Lipitor) 10 mg PO DAILY [facility] Stop: 01/25/18 08:59 Last Admin: 11/29/17 10:34 Dose: 10 mg Carvedilol (Coreg) 25 mg PO BID [facility] Stop: 01/25/18 08:59 Last Admin: 11/29/17 10:34 Dose: 25 mg Dextrose (D50w) 50 ml IVP DAILY PRN PRN Reason: Blood Glucose less than 70 Stop: 01/27/18 08:44 Last Admin: 11/28/17 09:19 Dose: 50 ml Dextrose (Glutose 40%) 18.75 gm PO DAILY PRN PRN Reason: Blood Glucose less than 70 Stop: 01/27/18 08:44 Furosemide (Lasix) 20 mg IVP DAILY [facility] Stop: 01/29/18 08:59 Glucagon (Glucagen) 1 mg IM DAILY PRN PRN Reason: Blood Glucose less than 70 Stop: 01/27/18 08:44 Levofloxacin (Levaquin Pb) 250 mg in 50 mls @ 50 mls/hr IV Q24HR [facility] Stop: 01/25/18 20:59 Last Infusion: 11/28/17 21:40 Dose: Infused Piperacillin Sod/Tazobactam (Sod 4.5 gm/ Sodium Chloride) 100 mls @ 100 mls/hr IV Q8HR [facility] Stop: 01/26/18 20:59 Last Infusion: 11/29/17 06:30 Dose: Infused Dextrose (D5w) 1,000 mls @ 40 mls/hr IV .Q24H [facility] Stop: 01/28/18 10:58 Insulin Aspart (Novolog Insulin Sliding Scale) 0 units SUBQ ACHS SYLVIA PRN Reason: Protocol Stop: 01/24/18 16:29 Last Admin: 11/29/17 06:55 Dose: Not Given Insulin Detemir (Levemir Insulin) 40 units SUBQ HS [facility] Stop: 01/25/18 20:59 Last Admin: 11/28/17 20:50 Dose: Not Given Lisinopril (Zestril) 15 mg PO DAILY [facility] Stop: 01/23/18 11:59 Last Admin: 11/29/17 10:29 Dose: 15 mg Lorazepam (Ativan) 0.5 mg IVP BID PRN; Protocol PRN Reason: Anxiety Stop: 01/25/18 21:17 Last Admin: 11/28/17 20:49 Dose: 0.5 mg Morphine Sulfate (Morphine) 1 mg IVP Q4HR PRN PRN Reason: Pain (Moderate) Stop: 01/23/18 11:51 Last Admin: 11/24/17 22:32 Dose: 1 mg Morphine Sulfate (Morphine) 2 mg IVP Q4HR PRN PRN Reason: Pain (Severe) Stop: 01/23/18 11:51 Last Admin: 11/28/17 11:49 Dose: 2 mg Ondansetron HCl (Zofran) 4 mg IV Q4H PRN PRN Reason: Nausea / Vomiting Stop: 01/23/18 11:56 Pentoxifylline (Trental) 400 mg PO BID [facility] Stop: 01/25/18 08:59 Last Admin: 11/29/17 10:34 Dose: 400 mg Sitagliptin Phosphate (Januvia) 25 mg PO DAILY [facility] Stop: 01/25/18 08:59 Last Admin: 11/29/17 09:54 Dose: Not Given General: weak, alert HEENT: NC/AT, PERRLA Neck: Supple Lungs: ronchi Cardiovascular: RRR, Normal S1, Normal S2 Abdomen: soft, non-tender, non-distended Neurological: alert - Procedures Procedures: Procedures Procedure Code Date DRAINAGE OF SKIN ABSCESS 27318 07/03/05 OTHER SKIN & SUBQ I D 86.04 07/03/05 Internal Medicine Assmt/Plan - Assessment Assessment: anemia COPD exacerbation respiratory acidosis - Plan Plan: BIPAP STANDBY CARDIOLOGY CONSULT SUPPLEMENTAL O2 IVABX BRONCHODILATORS CONTINUE CURRENT PLAN OF CARE Nutritional Asmnt/Malnutr-PDOC - Dietary Evaluation Malnutrition Findings (Please click <Entered> for more info): Nutritional Asmnt/Malnutrition Start: 11/25/17 18: 26 Text: Status: Complete Freq: Document 11/25/17 18:26 LCHENG (Rec: 11/25/17 18:33 LCHENG [email or web address]) Nutritional Asmnt/Malnutrition Patient General Information Nutritional Screening High Risk Consult Diagnosis anemia, COPD, respiratory acidosis Pertinent Medical Hx/Surgical Hx anemia, DM per family Subjective Information consult received for diebetic foot ulcer, skin integrity/ wound. . pt seen resting in bed at the time of visit, family at bedside. family reported pt got regular diet tray this morning, wanted diabetic diet. Pt only had some oatmeal for breakfast and squash and applesauce for lunch, low appetite d/t disease. Family denied pt having chewing problem with dentures. Per notes, PO intake 25-50% 11/25 Current Diet Order/ Nutrition Support Regular Pertinent Medications novolog, nacl 0.9% Pertinent Labs 11/23 Na 128, K 3.2, Cl 95, BUN 15, Cr 0.8, Glucose 83, ca 8.0 11/25 POC 165-167 Nutritional Hx/Data Height 5 ft 5 in Height (Calculated Centimeters) 165.1 Current Weight (lbs) 170 lb Weight (Calculated Kilograms) 77.1 Weight (Calculated Grams) 69913.7 [place] Body Weight 125 % [place] Body Weight 136 Body Mass Index (BMI) 28.3 Weight Status Overweight GI Symptoms GI Symptoms None Difficult in: None Skin Integrity/Comment: decubitus to right foot Current %PO Poor (25-49%) Estimated Nutritional Goals BEE in Kcals: Using Current wt Calories/Kcals/Kg 25 Kcals Calculated 1924 Protein: Using Current wt Protein g/k Protein Calculated 77 Fluid: ml 1924 Nutritional Problem 1. Problem Problem inadquate food intake Etiology poor appetite Signs/Symptoms: PO intake <50% Malnutrition Alert Protein-Calorie Malnutrition N/A Is there a minimum of two criteria No selected? Query Text:Check all the applicable criteria. A minimum of two criteria are recommended for diagnosis of either severe or non-severe malnutrition. Intervention/Recommendation Comments 1. Recommend CCHO diet with Boost Glucose Control BID. Notified RN. 2. Monitor PO intake, wt, labs and skin integrity 3. F/U as high risk in 2-3 days, 11/27-11/28 Expected Outcomes/Goals Expected Outcomes/Goals 1. PO intake to improve, to meet at least 75% of nutritional needs. 2. Wt stability, skin to remain intact, labs to improve
[2017-11-29] MEDS: Albuterol/Ipratropium Neb 3 ML AERS HHN PRN (12:34)
[2017-11-29 12:40] LABS: INF A SCREEN NEG FOR INF A; INF B SCREEN NEG FOR INF B
[2017-11-29] MEDS: Dextrose 5% 1,000 ML IV SCH (15:42)
[2017-11-29] MEDS ORDERED: Potassium Chloride 20 mEq ER Tab PO ONE (16:00)
[2017-11-29] MEDS: Levofloxacin 250mg/50mL 250 MG/50 ML BAG IV SCH (21:22)
[2017-11-29] MEDS: Insulin Detemir 100 units/mL 10mL Vial SUBQ SCH (21:28)
--- NOTE | 2017-11-30 00:25 | Consultation ---
DATE OF CONSULTATION: 11/29/[address] Nayak. HISTORY AND PHYSICAL: This is a 72-year-old female patient came to the Emergency Room complaining of shortness of breath. The patient was found to have congestive heart failure and pneumonia. The patient is admitted. The patient at this time is hypokalemic. Cardiac consult requested in view of elevated BNP level. PAST MEDICAL HISTORY: COPD, iron deficiency anemia, right leg venous stasis with ulcer and iron deficiency anemia. FAMILY HISTORY: Unremarkable. SOCIAL HISTORY: No history of smoking or alcohol abuse. ALLERGIES: None. PHYSICAL EXAMINATION: VITAL SIGNS: Blood pressure 130/80, pulse 90 and respirations 28. HEAD: Normocephalic. No lumps or bumps. EYES: Pupils equal and reactive to light. Fundi show AV nicking, sclerae white, conjunctivae pink. NECK: Carotid 2+. Normal upstroke. JVD 10 cm above the sternal angle. Thyroid not palpable. Lymph nodes not palpable. CHEST: Shows increased AP diameter. No kyphosis or scoliosis. LUNGS: Bilateral rales. Decreased breath sounds both the bases. HEART: PMI, sixth intercostal space with lateral to midclavicular line. S1, S2, S3, S4, soft systolic murmur. ABDOMEN: Soft, hepatojugular reflux. Positive bowel sounds active. RECTAL: Deferred. NEUROLOGIC: Unremarkable. EXTREMITIES: The patient has stasis ulcers in the right lower extremity. CLINICAL IMPRESSION: Acute respiratory failure; congestive heart failure; diastolic dysfunction, acute; chronic obstructive pulmonary disease; iron deficiency anemia; pneumonia; right leg venous stasis with ulcer and hypokalemia. PLAN: We will continue diuretics. Get echocardiogram for left ventricular function. Potassium supplement. JOB# [id number]
[2017-11-30 06:03] LABS: % BASOPHILS 0.1 % (0.0-2.0); % EOSINOPHILS 0.1 % (0.0-5.0); % LYMPHOCYTES 7.1 % (20.0-50.0); % MONOCYTES 6.3 % (2.0-10.0); % NEUTROPHILS 86.4 % (40.0-80.0); HEMATOCRIT 30.7 % (41.0-60); LYMPHOCYTE ABSOLUTE 1.1 Th/cmm (1.5-3.0); MEAN CELL VOLUME 78.9 fl (81-100); MEAN CORPUSCULAR HEMOGLOBIN 25.6 pg (27.0-31.0); MEAN CORPUSCULAR HGB CONC 32.5 pg (28.0-36.0); NEUTROPHILE ABSOLUTE 13.2 Th/cmm (1.8-8.0); PLATELET COUNT 307 Th/cmm (150-400); RED CELL DISTRIBUTION WIDTH 15.2 % (11.5-20.0)
[2017-11-30 06:05] LABS: WHITE BLOOD COUNT 15.3 Th/cmm (4.8-10.8)
[2017-11-30 06:14] LABS: ANION GAP 5.9 (7.0-16.0); BUN - UREA NITROGEN 13 mg/dL (7-25); CALCIUM SERUM 7.3 mg/dL (8.6-10.3); CHLORIDE 86 mEq/L (98-107); CREATININE - SERUM 1.1 mg/dL (0.6-1.2); SODIUM SERUM 136 mEq/L (136-145)
[2017-11-30 06:16] LABS: CARBON DIOXIDE 46.8 mEq/L (21.0-31.0); GLUCOSE 229 mg/dL (70-105); POTASSIUM SERUM 2.7 mEq/L (3.5-5.1)
[2017-11-30] MEDS: INSULIN ASPART SLIDING SCALE 100 UNITS/ML UNIT SUBQ SCH ×4 (06:49→21:13)
--- NOTE | 2017-11-30 08:31 | Diagnostic Imaging Report ---
CHEST X-RAY: AP view INDICATION: Shortness of breath COMPARISON: 11/29/2017 FINDINGS: Mild congestive changes are seen with small right effusion. Cardiomegaly is noted with atherosclerosis. IMPRESSION: Mild congestive changes small right effusion. Pneumonia of the right lung base cannot be excluded. Cardiomegaly and atherosclerotic vascular disease.
[2017-11-30] MEDS: Potassium Chloride 20 mEq ER Tab PO SCH ×2 (08:40→12:15)
[2017-11-30] MEDS: Atorvastatin Calcium 10 MG TAB PO SCH (08:41)
[2017-11-30] MEDS: Albuterol/Ipratropium Neb 3 ML AERS HHN PRN (08:51)
[2017-11-30] MEDS ORDERED: Mag Sulfate 2gm/50mL Premix 2 GM/50 ML BAG IV ONE ×2 (10:10→12:15)
[2017-11-30] MEDS ORDERED: Potassium Chloride 20 mEq ER Tab PO ONE (12:14)
--- NOTE | 2017-11-30 16:16 | General Progress Note ---
Subjective - Review of Systems Events since last encounter: patient with sob h/o chf Objective - Results Result Diagrams: 11/30/17 05:30 11/30/17 05:30 Recent Labs: Laboratory Last Values WBC 15.3 Th/cmm (4.8-10.8) H 11/30/17 05:30 RBC 3.90 Mil/cmm (3.80-5.20) 11/30/17 05:30 Hgb 10.0 gm/dL (12-16) L 11/30/17 05:30 Hct 30.7 % (41.0-60) L 11/30/17 05:30 MCV 78.9 fl (81-100) L 11/30/17 05:30 MCH 25.6 pg (27.0-31.0) L 11/30/17 05:30 MCHC Differential 32.5 pg (28.0-36.0) 11/30/17 05:30 RDW 15.2 % (11.5-20.0) 11/30/17 05:30 Plt Count 307 Th/cmm (150-400) 11/30/17 05:30 MPV 7.0 fl 11/30/17 05:30 Neutrophils % 86.4 % (40.0-80.0) H 11/30/17 05:30 Lymphocytes % 7.1 % (20.0-50.0) L 11/30/17 05:30 Monocytes % 6.3 % (2.0-10.0) 11/30/17 05:30 Eosinophils % 0.1 % (0.0-5.0) 11/30/17 05:30 Basophils % 0.1 % (0.0-2.0) 11/30/17 05:30 Neutrophils (Manual) 86 % (40-80) H 11/28/17 07:00 Lymphocytes 8 % (20-50) L 11/28/17 07:00 Monocytes 6 % (2-10) 11/28/17 07:00 Platelet Estimate ADEQUATE (NORMAL) 11/28/17 07:00 Microcytosis 1+ 11/28/17 07:00 Specimen Source AERTERIAL 11/29/17 09:40 Sample Site RB 11/29/17 09:40 pH 7.54 (7.35-7.45) H 11/29/17 09:40 pCO2 59.0 mmHg (35.0-45.0) H* 11/29/17 09:40 pO2 60.0 mmHg (80.0-100.0) L 11/29/17 09:40 HCO3 43.0 mEq/L (20.0-26.0) H 11/29/17 09:40 Base Excess 21.0 mEq/L (-3.0-3.0) H 11/29/17 09:40 O2 Saturation 93.0 % (92.0-100.0) 11/29/17 09:40 Fredy Test Y 11/29/17 09:40 Vent Rate N/A 11/29/17 09:40 Inspired O2 30 11/29/17 09:40 Tidal Volume N/A 11/29/17 09:40 PEEP N/A 11/29/17 09:40 Pressure (ins/psv/peep) N/A 11/29/17 09:40 Critical Value O.VARELA 11/29/17 09:40 Sodium 136 mEq/L (136-145) 11/30/17 05:30 Potassium 2.7 mEq/L (3.5-5.1) L* 11/30/17 05:30 Chloride 86 mEq/L (98-107) L 11/30/17 05:30 Carbon Dioxide 46.8 mEq/L (21.0-31.0) H 11/30/17 05:30 Anion Gap 5.9 (7.0-16.0) L 11/30/17 05:30 BUN 13 mg/dL (7-25) 11/30/17 05:30 Creatinine 1.1 mg/dL (0.6-1.2) 11/30/17 05:30 Est GFR ( Amer) TNP 11/30/17 05:30 Est GFR (Non-Af Amer) TNP 11/30/17 05:30 BUN/Creatinine Ratio 11.8 11/30/17 05:30 Glucose 229 mg/dL (70-105) H D 11/30/17 05:30 POC Glucose 172 MG/DL (70 - 105) H 11/30/17 11:21 Hemoglobin A1c % 7.5 % (4.0-6.0) H 11/27/17 05:05 Calcium 7.3 mg/dL (8.6-10.3) L 11/30/17 05:30 Magnesium 1.2 mg/dL (1.9-2.7) L 11/30/17 05:30 Total Bilirubin 0.4 mg/dL (0.3-1.0) 11/28/17 07:00 AST 14 U/L (13-39) 11/28/17 07:00 ALT 18 U/L (7-52) 11/28/17 07:00 Alkaline Phosphatase 131 U/L (34-104) H 11/28/17 07:00 B-Natriuretic Peptide 1200.0 pg/mL (5.0-100.0) H 11/30/17 05:30 Total Protein 5.7 gm/dL (6.0-8.3) L 11/28/17 07:00 Albumin 3.0 gm/dL (3.7-5.3) L 11/28/17 07:00 Globulin 2.7 gm/dL 11/28/17 07:00 Albumin/Globulin Ratio 1.1 (1.0-1.8) 11/28/17 07:00 Urine Source CATH 11/26/17 12:10 Urine Color YELLOW 11/26/17 12:10 Urine Clarity HAZY (CLEAR) 11/26/17 12:10 Urine pH 6.0 (4.6 - 8.0) 11/26/17 12:10 Ur Specific [place] 1.025 (1.005-1.030) 11/26/17 12:10 Urine Protein 100 mg/dL (NEGATIVE) H 11/26/17 12:10 Urine Glucose (UA) 100 mg/dL (NEGATIVE) H 11/26/17 12:10 Urine Ketones NEGATIVE mg/dL (NEGATIVE) 11/26/17 12:10 Urine Blood LARGE (NEGATIVE) H 11/26/17 12:10 Urine Nitrate NEGATIVE (NEGATIVE) 11/26/17 12:10 Urine Bilirubin SMALL (NEGATIVE) H 11/26/17 12:10 Urine Urobilinogen 0.2 E.U./dL (0.2 - 1.0) 11/26/17 12:10 Ur Leukocyte Esterase NEGATIVE (NEGATIVE) 11/26/17 12:10 Urine RBC >100 /hpf (0-5) H 11/26/17 12:10 Urine WBC 2-5 /hpf (0-5) 11/26/17 12:10 Ur Epithelial Cells FEW /lpf (FEW) 11/26/17 12:10 Urine Bacteria FEW /hpf (NONE SEEN) 11/26/17 12:10 Hyaline Casts 2-5 /lpf (0-2) H 11/24/17 02:50 Influenza A (Rapid) NEG FOR INF A 11/29/17 11:15 Influenza B (Rapid) NEG FOR INF B 11/29/17 11:15 - Physical Exam Vitals and I&O: Vital Signs Temp 98.0 F 11/30/17 12:00 Pulse 82 11/30/17 15:00 Resp 24 11/30/17 15:00 BP 157/61 11/30/17 15:00 Pulse Ox 100 11/30/17 15:00 Intake & Output 11/29/17 11/30/17 11/30/17 18:59 06:59 18:59 Intake Total 692 1089.333 100 Output Total 3600 1100 Balance -2908 -10.667 100 Weight (lbs) 107.048 kg 107.048 kg Intake: Intake, IV Amount 372 839.333 100 Dextrose 5% 1,000 ml @ 40 589.333 mls/hr IV .Q24H [facility] Rx#: [id number] Levofloxacin 250mg/50mL 50 250 mg In 50 ml @ 50 mls/ hr IV Q24HR [facility] Rx#: [id number] Piperacillin Sodium/ 100 200 100 Tazobact 4.5 gm In Sodium Chloride 0.9% 100 ml @ 100 mls/hr IV Q8HR [facility] Rx #:[id number] Oral 320 250 Output: Urine 3600 1100 Other: # Bowel Movements 4 0 Stool Characteristics Soft Soft Formed Formed Brown Brown Active Medications: Current Medications Albuterol/Ipratropium (Duoneb Neb) 3 ml HHN Q4HRT PRN PRN Reason: Shortness of Breath Stop: 01/23/18 05:17 Last Admin: 11/30/17 08:51 Dose: 3 ml Alprazolam (Xanax) 0.25 mg PO Q8HR PRN; Protocol PRN Reason: FOR ANXIETY Stop: 01/25/18 21:53 Last Admin: 11/28/17 18:35 Dose: 0.25 mg Aspirin (Ecotrin) 81 mg PO DAILY [facility] Stop: 01/25/18 08:59 Last Admin: 11/30/17 08:41 Dose: 81 mg Atorvastatin Calcium (Lipitor) 10 mg PO DAILY [facility] Stop: 01/25/18 08:59 Last Admin: 11/30/17 08:41 Dose: 10 mg Carvedilol (Coreg) 25 mg PO BID [facility] Stop: 01/25/18 08:59 Last Admin: 11/30/17 08:41 Dose: 25 mg Dextrose (D50w) 50 ml IVP DAILY PRN PRN Reason: Blood Glucose less than 70 Stop: 01/27/18 08:44 Last Admin: 11/28/17 09:19 Dose: 50 ml Dextrose (Glutose 40%) 18.75 gm PO DAILY PRN PRN Reason: Blood Glucose less than 70 Stop: 01/27/18 08:44 Furosemide (Lasix) 20 mg IVP DAILY [facility] Stop: 01/29/18 08:59 Last Admin: 11/30/17 09:32 Dose: Not Given Glucagon (Glucagen) 1 mg IM DAILY PRN PRN Reason: Blood Glucose less than 70 Stop: 01/27/18 08:44 Hydralazine HCl (Apresoline 20 Mg/Ml) 10 mg IV Q4HR PRN PRN Reason: Systolic BP Above 160 Stop: 01/29/18 07:03 Levofloxacin (Levaquin Pb) 250 mg in 50 mls @ 50 mls/hr IV Q24HR [facility] Stop: 01/25/18 20:59 Last Infusion: 11/30/17 06:27 Dose: Infused Piperacillin Sod/Tazobactam (Sod 4.5 gm/ Sodium Chloride) 100 mls @ 100 mls/hr IV Q8HR [facility] Stop: 01/26/18 20:59 Last Infusion: 11/30/17 15:06 Dose: Infused Dextrose (D5w) 1,000 mls @ 40 mls/hr IV .Q24H [facility] Stop: 01/28/18 10:58 Last Infusion: 11/30/17 06:26 Dose: 40 mls/hr Insulin Aspart (Novolog Insulin Sliding Scale) 0 units SUBQ ACHS [facility] PRN Reason: Protocol Stop: 01/24/18 16:29 Last Admin: 11/30/17 11:48 Dose: Not Given Insulin Detemir (Levemir Insulin) 40 units SUBQ HS [facility] Stop: 01/25/18 20:59 Last Admin: 11/29/17 21:28 Dose: Not Given Lisinopril (Zestril) 15 mg PO DAILY [facility] Stop: 01/23/18 11:59 Last Admin: 11/30/17 08:41 Dose: 15 mg Lorazepam (Ativan) 0.5 mg IVP BID PRN; Protocol PRN Reason: Anxiety Stop: 01/25/18 21:17 Last Admin: 11/28/17 20:49 Dose: 0.5 mg Morphine Sulfate (Morphine) 1 mg IVP Q4HR PRN PRN Reason: Pain (Moderate) Stop: 01/23/18 11:51 Last Admin: 11/24/17 22:32 Dose: 1 mg Morphine Sulfate (Morphine) 2 mg IVP Q4HR PRN PRN Reason: Pain (Severe) Stop: 01/23/18 11:51 Last Admin: 11/28/17 11:49 Dose: 2 mg Ondansetron HCl (Zofran) 4 mg IV Q4H PRN PRN Reason: Nausea / Vomiting Stop: 01/23/18 11:56 Pentoxifylline (Trental) 400 mg PO BID [facility] Stop: 01/25/18 08:59 Last Admin: 11/30/17 08:41 Dose: 400 mg Sitagliptin Phosphate (Januvia) 25 mg PO DAILY [facility] Stop: 01/25/18 08:59 Last Admin: 11/30/17 08:41 Dose: 25 mg Tramadol HCl (Ultram) 50 mg PO Q6HR PRN PRN Reason: Pain (Moderate) Stop: 01/29/18 00:00 Last Admin: 11/30/17 12:15 Dose: 50 mg General: No acute distress HEENT: Atraumatic Neck: Supple Cardiovascular: Regular rate - Procedures Procedures: Procedures Procedure Code Date DRAINAGE OF SKIN ABSCESS 01816 07/03/05 OTHER SKIN & SUBQ I D 86.04 07/03/05 Assessment/Plan - Problem List Patient Problems: All Active Problems Anemia (Acute) D64.9 Anxiety (Acute) F41.9 COPD exacerbation (Acute) J44.1 Diabetes (Acute) E11.9 General weakness (Acute) HTN (hypertension) (Acute) I10 Hyperlipidemia (Acute) E78.5 - Plan Plan: cpm Nutritional Asmnt/Malnutr-PDOC - Dietary Evaluation Malnutrition Findings (Please click <Entered> for more info): Nutritional Asmnt/Malnutrition Start: 11/25/17 18: 26 Text: Status: Complete Freq: Document 11/25/17 18:26 LCBEE (Rec: 11/25/17 18:33 [email or web address]) Nutritional Asmnt/Malnutrition Patient General Information Nutritional Screening High Risk Consult Diagnosis anemia, COPD, respiratory acidosis Pertinent Medical Hx/Surgical Hx anemia, DM per family Subjective Information consult received for diebetic foot ulcer, skin integrity/ wound. . pt seen resting in bed at the time of visit, family at bedside. family reported pt got regular diet tray this morning, wanted diabetic diet. Pt only had some oatmeal for breakfast and squash and applesauce for lunch, low appetite d/t disease. Family denied pt having chewing problem with dentures. Per notes, PO intake 25-50% 11/25 Current Diet Order/ Nutrition Support Regular Pertinent Medications novolog, nacl 0.9% Pertinent Labs 11/23 Na 128, K 3.2, Cl 95, BUN 15, Cr 0.8, Glucose 83, ca 8.0 11/25 POC 165-167 Nutritional Hx/Data Height 1.65 m Height (Calculated Centimeters) 165.1 Current Weight (lbs) 77.111 kg Weight (Calculated Kilograms) 77.1 Weight (Calculated Grams) 67780.7 [place] Body Weight 125 % [place] Body Weight 136 Body Mass Index (BMI) 28.3 Weight Status Overweight GI Symptoms GI Symptoms None Difficult in: None Skin Integrity/Comment: decubitus to right foot Current %PO Poor (25-49%) Estimated Nutritional Goals BEE in Kcals: Using Current wt Calories/Kcals/Kg 25 Kcals Calculated 1924 Protein: Using Current wt Protein g/k Protein Calculated 77 Fluid: ml 1924 Nutritional Problem 1. Problem Problem inadquate food intake Etiology poor appetite Signs/Symptoms: PO intake <50% Malnutrition Alert Protein-Calorie Malnutrition N/A Is there a minimum of two criteria No selected? Query Text:Check all the applicable criteria. A minimum of two criteria are recommended for diagnosis of either severe or non-severe malnutrition. Intervention/Recommendation Comments 1. Recommend CCHO diet with Boost Glucose Control BID. Notified RN. 2. Monitor PO intake, wt, labs and skin integrity 3. F/U as high risk in 2-3 days, 11/27-11/28 Expected Outcomes/Goals Expected Outcomes/Goals 1. PO intake to improve, to meet at least 75% of nutritional needs. 2. Wt stability, skin to remain intact, labs to improve
[2017-11-30] MEDS: Dextrose 5% 1,000 ML IV SCH (16:55)
[2017-11-30] MEDS: Albuterol/Ipratropium Neb 3 ML AERS HHN SCH ×2 (19:32→23:12)
[2017-11-30] MEDS: Levofloxacin 250mg/50mL 250 MG/50 ML BAG IV SCH (20:55)
[2017-11-30] MEDS: Insulin Detemir 100 units/mL 10mL Vial SUBQ SCH (21:42)
[2017-12-01] MEDS: Albuterol/Ipratropium Neb 3 ML AERS HHN SCH ×6 (03:44→23:01)
[2017-12-01 05:50] LABS: % BASOPHILS 0.6 % (0.0-2.0); % EOSINOPHILS 0.3 % (0.0-5.0); % LYMPHOCYTES 7.4 % (20.0-50.0); % MONOCYTES 6.6 % (2.0-10.0); % NEUTROPHILS 85.1 % (40.0-80.0); BASOPHILE ABSOLUTE 0.1 Th/cumm (0-0.2); HEMATOCRIT 28.4 % (41.0-60); HEMOGLOBIN 9.4 gm/dL (12-16); LYMPHOCYTE ABSOLUTE 1.1 Th/cmm (1.5-3.0); MEAN CELL VOLUME 77.1 fl (81-100); MEAN CORPUSCULAR HEMOGLOBIN 25.6 pg (27.0-31.0); MEAN CORPUSCULAR HGB CONC 33.2 pg (28.0-36.0); MEAN PLATELET VOLUME 6.5 fl; NEUTROPHILE ABSOLUTE 12.4 Th/cmm (1.8-8.0); PLATELET COUNT 262 Th/cmm (150-400); RED BLOOD COUNT 3.69 Mil/cmm (3.80-5.20); RED CELL DISTRIBUTION WIDTH 14.8 % (11.5-20.0)
[2017-12-01 05:51] LABS: WHITE BLOOD COUNT 14.6 Th/cmm (4.8-10.8)
[2017-12-01 06:01] LABS: BUN - UREA NITROGEN 14 mg/dL (7-25); CALCIUM SERUM 7.5 mg/dL (8.6-10.3); CHLORIDE 84 mEq/L (98-107); CREATININE - SERUM 1.3 mg/dL (0.6-1.2); GLUCOSE 167 mg/dL (70-105); MAGNESIUM 2.1 mg/dL (1.9-2.7); POTASSIUM SERUM 3.3 mEq/L (3.5-5.1); SODIUM SERUM 133 mEq/L (136-145)
[2017-12-01 06:04] LABS: CARBON DIOXIDE 45.3 mEq/L (21.0-31.0)
[2017-12-01] MEDS: INSULIN ASPART SLIDING SCALE 100 UNITS/ML UNIT SUBQ SCH ×4 (06:29→21:31)
[2017-12-01] MEDS: Atorvastatin Calcium 10 MG TAB PO SCH (08:21)
--- NOTE | 2017-12-01 09:09 | General Progress Note ---
Subjective - Review of Systems Events since last encounter: in no acute distress Objective - Results Result Diagrams: 12/01/17 05:34 12/01/17 05:34 Recent Labs: Laboratory Last Values WBC 14.6 Th/cmm (4.8-10.8) H 12/01/17 05:34 RBC 3.69 Mil/cmm (3.80-5.20) L 12/01/17 05:34 Hgb 9.4 gm/dL (12-16) L 12/01/17 05:34 Hct 28.4 % (41.0-60) L 12/01/17 05:34 MCV 77.1 fl (81-100) L 12/01/17 05:34 MCH 25.6 pg (27.0-31.0) L 12/01/17 05:34 MCHC Differential 33.2 pg (28.0-36.0) 12/01/17 05:34 RDW 14.8 % (11.5-20.0) 12/01/17 05:34 Plt Count 262 Th/cmm (150-400) 12/01/17 05:34 MPV 6.5 fl 12/01/17 05:34 Neutrophils % 85.1 % (40.0-80.0) H 12/01/17 05:34 Lymphocytes % 7.4 % (20.0-50.0) L 12/01/17 05:34 Monocytes % 6.6 % (2.0-10.0) 12/01/17 05:34 Eosinophils % 0.3 % (0.0-5.0) 12/01/17 05:34 Basophils % 0.6 % (0.0-2.0) 12/01/17 05:34 Neutrophils (Manual) 86 % (40-80) H 11/28/17 07:00 Lymphocytes 8 % (20-50) L 11/28/17 07:00 Monocytes 6 % (2-10) 11/28/17 07:00 Platelet Estimate ADEQUATE (NORMAL) 11/28/17 07:00 Microcytosis 1+ 11/28/17 07:00 Specimen Source AERTERIAL 11/29/17 09:40 Sample Site RB 11/29/17 09:40 pH 7.54 (7.35-7.45) H 11/29/17 09:40 pCO2 59.0 mmHg (35.0-45.0) H* 11/29/17 09:40 pO2 60.0 mmHg (80.0-100.0) L 11/29/17 09:40 HCO3 43.0 mEq/L (20.0-26.0) H 11/29/17 09:40 Base Excess 21.0 mEq/L (-3.0-3.0) H 11/29/17 09:40 O2 Saturation 93.0 % (92.0-100.0) 11/29/17 09:40 Fredy Test Y 11/29/17 09:40 Vent Rate N/A 11/29/17 09:40 Inspired O2 30 11/29/17 09:40 Tidal Volume N/A 11/29/17 09:40 PEEP N/A 11/29/17 09:40 Pressure (ins/psv/peep) N/A 11/29/17 09:40 Critical Value O.VARELA 11/29/17 09:40 Sodium 133 mEq/L (136-145) L 12/01/17 05:34 Potassium 3.3 mEq/L (3.5-5.1) L 12/01/17 05:34 Chloride 84 mEq/L (98-107) L 12/01/17 05:34 Carbon Dioxide 45.3 mEq/L (21.0-31.0) H 12/01/17 05:34 Anion Gap 7.0 (7.0-16.0) 12/01/17 05:34 BUN 14 mg/dL (7-25) 12/01/17 05:34 Creatinine 1.3 mg/dL (0.6-1.2) H 12/01/17 05:34 Est GFR ( Amer) [facility] 12/01/17 05:34 Est GFR (Non-Af Amer) [facility] 12/01/17 05:34 BUN/Creatinine Ratio 10.8 12/01/17 05:34 Glucose 167 mg/dL (70-105) H 12/01/17 05:34 POC Glucose 175 MG/DL (70 - 105) H 11/30/17 21:06 Hemoglobin A1c % 7.5 % (4.0-6.0) H 11/27/17 05:05 Calcium 7.5 mg/dL (8.6-10.3) L 12/01/17 05:34 Magnesium 2.1 mg/dL (1.9-2.7) 12/01/17 05:34 Total Bilirubin 0.4 mg/dL (0.3-1.0) 11/28/17 07:00 AST 14 U/L (13-39) 11/28/17 07:00 ALT 18 U/L (7-52) 11/28/17 07:00 Alkaline Phosphatase 131 U/L (34-104) H 11/28/17 07:00 B-Natriuretic Peptide 1100.0 pg/mL (5.0-100.0) H 12/01/17 05:34 Total Protein 5.7 gm/dL (6.0-8.3) L 11/28/17 07:00 Albumin 3.0 gm/dL (3.7-5.3) L 11/28/17 07:00 Globulin 2.7 gm/dL 11/28/17 07:00 Albumin/Globulin Ratio 1.1 (1.0-1.8) 11/28/17 07:00 Urine Source CATH 11/26/17 12:10 Urine Color YELLOW 11/26/17 12:10 Urine Clarity HAZY (CLEAR) 11/26/17 12:10 Urine pH 6.0 (4.6 - 8.0) 11/26/17 12:10 Ur Specific [place] 1.025 (1.005-1.030) 11/26/17 12:10 Urine Protein 100 mg/dL (NEGATIVE) H 11/26/17 12:10 Urine Glucose (UA) 100 mg/dL (NEGATIVE) H 11/26/17 12:10 Urine Ketones NEGATIVE mg/dL (NEGATIVE) 11/26/17 12:10 Urine Blood LARGE (NEGATIVE) H 11/26/17 12:10 Urine Nitrate NEGATIVE (NEGATIVE) 11/26/17 12:10 Urine Bilirubin SMALL (NEGATIVE) H 11/26/17 12:10 Urine Urobilinogen 0.2 E.U./dL (0.2 - 1.0) 11/26/17 12:10 Ur Leukocyte Esterase NEGATIVE (NEGATIVE) 11/26/17 12:10 Urine RBC >100 /hpf (0-5) H 11/26/17 12:10 Urine WBC 2-5 /hpf (0-5) 11/26/17 12:10 Ur Epithelial Cells FEW /lpf (FEW) 11/26/17 12:10 Urine Bacteria FEW /hpf (NONE SEEN) 11/26/17 12:10 Hyaline Casts 2-5 /lpf (0-2) H 11/24/17 02:50 Influenza A (Rapid) NEG FOR INF A 11/29/17 11:15 Influenza B (Rapid) NEG FOR INF B 11/29/17 11:15 - Physical Exam Vitals and I&O: Vital Signs Temp 97.8 F 12/01/17 04:00 Pulse 90 12/01/17 08:21 Resp 16 12/01/17 07:47 BP 166/72 12/01/17 08:22 Pulse Ox 100 12/01/17 07:47 Intake & Output 11/30/17 12/01/17 12/01/17 18:59 06:59 18:59 Intake Total 9168.513 8690.333 Output Total 400 300 Balance 610.667 723.333 Weight (lbs) 107.048 kg 106.679 kg Intake: Intake, IV Amount 510.667 773.333 Dextrose 5% 1,000 ml @ 40 410.667 523.333 mls/hr IV .Q24H [facility] Rx#: [id number] Levofloxacin 250mg/50mL 50 250 mg In 50 ml @ 50 mls/ hr IV Q24HR [facility] Rx#: [id number] Piperacillin Sodium/ 100 200 Tazobact 4.5 gm In Sodium Chloride 0.9% 100 ml @ 100 mls/hr IV Q8HR [facility] Rx #:[id number] Oral 500 250 Output: Urine 400 300 Other: # Bowel Movements 1 1 Stool Characteristics Soft Soft Formed Brown Brown Active Medications: Current Medications Albuterol/Ipratropium (Duoneb Neb) 3 ml HHN Q4HRT [facility] Stop: 01/29/18 18:59 Last Admin: 12/01/17 07:47 Dose: 3 ml Alprazolam (Xanax) 0.25 mg PO Q8HR PRN; Protocol PRN Reason: FOR ANXIETY Stop: 01/25/18 21:53 Last Admin: 11/30/17 21:17 Dose: 0.25 mg Aspirin (Ecotrin) 81 mg PO DAILY [facility] Stop: 01/25/18 08:59 Last Admin: 12/01/17 08:22 Dose: 81 mg Atorvastatin Calcium (Lipitor) 10 mg PO DAILY [facility] Stop: 01/25/18 08:59 Last Admin: 12/01/17 08:21 Dose: 10 mg Carvedilol (Coreg) 25 mg PO BID [facility] Stop: 01/25/18 08:59 Last Admin: 12/01/17 08:21 Dose: 25 mg Dextrose (D50w) 50 ml IVP DAILY PRN PRN Reason: Blood Glucose less than 70 Stop: 01/27/18 08:44 Last Admin: 11/28/17 09:19 Dose: 50 ml Dextrose (Glutose 40%) 18.75 gm PO DAILY PRN PRN Reason: Blood Glucose less than 70 Stop: 01/27/18 08:44 Furosemide (Lasix) 20 mg IVP DAILY [facility] Stop: 01/29/18 08:59 Last Admin: 12/01/17 08:22 Dose: 20 mg Glucagon (Glucagen) 1 mg IM DAILY PRN PRN Reason: Blood Glucose less than 70 Stop: 01/27/18 08:44 Hydralazine HCl (Apresoline 20 Mg/Ml) 10 mg IV Q4HR PRN PRN Reason: Systolic BP Above 160 Stop: 01/29/18 07:03 Levofloxacin (Levaquin Pb) 250 mg in 50 mls @ 50 mls/hr IV Q24HR [facility] Stop: 01/25/18 20:59 Last Infusion: 11/30/17 21:55 Dose: Infused Piperacillin Sod/Tazobactam (Sod 4.5 gm/ Sodium Chloride) 100 mls @ 100 mls/hr IV Q8HR [facility] Stop: 01/26/18 20:59 Last Infusion: 12/01/17 06:04 Dose: Infused Dextrose (D5w) 1,000 mls @ 40 mls/hr IV .Q24H [facility] Stop: 01/28/18 10:58 Last Infusion: 12/01/17 06:00 Dose: 40 mls/hr Insulin Aspart (Novolog Insulin Sliding Scale) 0 units SUBQ ACHS [facility] PRN Reason: Protocol Stop: 01/24/18 16:29 Last Admin: 12/01/17 06:29 Dose: 2 units Insulin Detemir (Levemir Insulin) 40 units SUBQ HS [facility] Stop: 01/25/18 20:59 Last Admin: 11/30/17 21:42 Dose: Not Given Lisinopril (Zestril) 15 mg PO DAILY [facility] Stop: 01/23/18 11:59 Last Admin: 12/01/17 08:19 Dose: 15 mg Lorazepam (Ativan) 0.5 mg IVP BID PRN; Protocol PRN Reason: Anxiety Stop: 01/25/18 21:17 Last Admin: 11/28/17 20:49 Dose: 0.5 mg Morphine Sulfate (Morphine) 1 mg IVP Q4HR PRN PRN Reason: Pain (Moderate) Stop: 01/23/18 11:51 Last Admin: 11/24/17 22:32 Dose: 1 mg Morphine Sulfate (Morphine) 2 mg IVP Q4HR PRN PRN Reason: Pain (Severe) Stop: 01/23/18 11:51 Last Admin: 11/28/17 11:49 Dose: 2 mg Ondansetron HCl (Zofran) 4 mg IV Q4H PRN PRN Reason: Nausea / Vomiting Stop: 01/23/18 11:56 Pentoxifylline (Trental) 400 mg PO BID [facility] Stop: 01/25/18 08:59 Last Admin: 12/01/17 08:22 Dose: Not Given Sitagliptin Phosphate (Januvia) 25 mg PO DAILY [facility] Stop: 01/25/18 08:59 Last Admin: 12/01/17 08:22 Dose: 25 mg Tramadol HCl (Ultram) 50 mg PO Q6HR PRN PRN Reason: Pain (Moderate) Stop: 01/29/18 00:00 Last Admin: 11/30/17 19:14 Dose: 50 mg General: No acute distress HEENT: Atraumatic Neck: Supple Cardiovascular: Regular rate - Procedures Procedures: Procedures Procedure Code Date DRAINAGE OF SKIN ABSCESS 47970 07/03/05 OTHER SKIN & SUBQ I D 86.04 07/03/05 Assessment/Plan - Problem List Patient Problems: All Active Problems Anemia (Acute) D64.9 Anxiety (Acute) F41.9 COPD exacerbation (Acute) J44.1 Diabetes (Acute) E11.9 General weakness (Acute) HTN (hypertension) (Acute) I10 Hyperlipidemia (Acute) E78.5 - Plan Plan: cpm Nutritional Asmnt/Malnutr-PDOC - Dietary Evaluation Malnutrition Findings (Please click <Entered> for more info): Nutritional Asmnt/Malnutrition Start: 11/25/17 18: 26 Text: Status: Complete Freq: Document 11/25/17 18:26 LCBEE (Rec: 11/25/17 18:33 [email or web address]) Nutritional Asmnt/Malnutrition Patient General Information Nutritional Screening High Risk Consult Diagnosis anemia, COPD, respiratory acidosis Pertinent Medical Hx/Surgical Hx anemia, DM per family Subjective Information consult received for diebetic foot ulcer, skin integrity/ wound. . pt seen resting in bed at the time of visit, family at bedside. family reported pt got regular diet tray this morning, wanted diabetic diet. Pt only had some oatmeal for breakfast and squash and applesauce for lunch, low appetite d/t disease. Family denied pt having chewing problem with dentures. Per notes, PO intake 25-50% 11/25 Current Diet Order/ Nutrition Support Regular Pertinent Medications novolog, nacl 0.9% Pertinent Labs 11/23 Na 128, K 3.2, Cl 95, BUN 15, Cr 0.8, Glucose 83, ca 8.0 11/25 POC 165-167 Nutritional Hx/Data Height 1.65 m Height (Calculated Centimeters) 165.1 Current Weight (lbs) 77.111 kg Weight (Calculated Kilograms) 77.1 Weight (Calculated Grams) 85934.7 [place] Body Weight 125 % [place] Body Weight 136 Body Mass Index (BMI) 28.3 Weight Status Overweight GI Symptoms GI Symptoms None Difficult in: None Skin Integrity/Comment: decubitus to right foot Current %PO Poor (25-49%) Estimated Nutritional Goals BEE in Kcals: Using Current wt Calories/Kcals/Kg 25 Kcals Calculated 1924 Protein: Using Current wt Protein g/k Protein Calculated 77 Fluid: ml 1924 Nutritional Problem 1. Problem Problem inadquate food intake Etiology poor appetite Signs/Symptoms: PO intake <50% Malnutrition Alert Protein-Calorie Malnutrition N/A Is there a minimum of two criteria No selected? Query Text:Check all the applicable criteria. A minimum of two criteria are recommended for diagnosis of either severe or non-severe malnutrition. Intervention/Recommendation Comments 1. Recommend CCHO diet with Boost Glucose Control BID. Notified RN. 2. Monitor PO intake, wt, labs and skin integrity 3. F/U as high risk in 2-3 days, 11/27-1/7 Expected Outcomes/Goals Expected Outcomes/Goals 1. PO intake to improve, to meet at least 75% of nutritional needs. 2. Wt stability, skin to remain intact, labs to improve
--- NOTE | 2017-12-01 14:16 | Diagnostic Imaging Report ---
Renal ultrasound HISTORY: Hematuria, patient has Anderson catheter. COMPARISON: None Technique: Sonography of the kidneys and urinary bladder was performed in multiple planes. FINDINGS: Exam is limited as patient was uncooperative. The right kidney measures 12.1 x 4.7 cm. No evidence of hydronephrosis or focal lesions. The left kidney measures 11.6 x 5.6 cm. No evidence of focal lesions or hydronephrosis. Prevoid bladder volume is 275 mL's. A Anderson catheter is noted. The patient appears to have completely voided. The urinary bladder wall is borderline prominent. IMPRESSION: No evidence of hydronephrosis. Borderline prominent urinary bladder wall, infectious/inflammatory or less likely infiltrative process cannot be excluded. Clinical correlation recommended. Anderson catheter noted.
--- NOTE | 2017-12-01 16:45 | Cardiology ---
12/01/[address] Nayak. PROCEDURE: Echocardiogram. M-MODE ECHOCARDIOGRAM: Mitral valve, anterior leaflet of mitral valve shows normal excursion, EF velocity. Posterior leaflet of the mitral valve shows normal excursion. Left ventricle posterior wall shows increased thickness, normal excursion. Interventricular septum shows increased thickness, normal excursion, hypertrophy of the left ventricle, ejection fraction 55%. Left atrium enlarged 4.4 cm. Aortic root showed normal dimension, normal excursion of aortic leaflets. CONCLUSION: Hypertrophy of the left ventricle, left atrial enlargement, ejection fraction 55%. 2D ECHO: Long axis view showed normal sized left ventricle with hypertrophy of the left ventricle. Left atrium enlarged. Aortic root shows normal dimension, normal excursion of aortic leaflets. Short axis view of mitral valve normal. Short axis view of aortic valve normal. Apical four chamber view showed normal sized left ventricle with hypertrophy of the left ventricle. Left atrium enlarged. Right ventricular cavity normal. Right atrium enlarged. Ejection fraction 55%. CONCLUSION: Left atrial enlargement, right atrial enlargement. Hypertrophy of the left ventricle, ejection fraction 55%. Doppler study shows moderate mitral regurgitation, moderate tricuspid regurgitation, mild pulmonary regurgitation, trace aortic regurgitation. Right ventricular systolic pressure 64 mmHg with moderate pulmonary hypertension. CONCLUSION: Hypertrophy of the left ventricle. Left atrial enlargement, right atrial enlargement, pulmonary hypertension, moderate mitral regurgitation, moderate tricuspid regurgitation, trace ____ regurgitation, trace pulmonary regurgitation. JOB# [id number]
[2017-12-01] MEDS: Potassium Chloride 20 mEq ER Tab PO SCH (16:54)
[2017-12-01] MEDS: Insulin Detemir 100 units/mL 10mL Vial SUBQ SCH ×2 (21:32→21:42)
[2017-12-01] MEDS: Levofloxacin 250mg/50mL 250 MG/50 ML BAG IV SCH (21:33)
--- NOTE | 2017-12-01 23:56 | Infectious Disease Prog Note ---
Infectious Disease Subjective - Review of Systems Service Date: 12/01/17 Subjective: Patient is alert and awake. Not in acute distress. No fever. c/o insomnia. Infectious Disease Objective - Results Result Diagrams: 12/01/17 05:34 12/01/17 05:34 Recent Labs: Laboratory Last Values WBC 14.6 Th/cmm (4.8-10.8) H 12/01/17 05:34 RBC 3.69 Mil/cmm (3.80-5.20) L 12/01/17 05:34 Hgb 9.4 gm/dL (12-16) L 12/01/17 05:34 Hct 28.4 % (41.0-60) L 12/01/17 05:34 MCV 77.1 fl (81-100) L 12/01/17 05:34 MCH 25.6 pg (27.0-31.0) L 12/01/17 05:34 MCHC Differential 33.2 pg (28.0-36.0) 12/01/17 05:34 RDW 14.8 % (11.5-20.0) 12/01/17 05:34 Plt Count 262 Th/cmm (150-400) 12/01/17 05:34 MPV 6.5 fl 12/01/17 05:34 Neutrophils % 85.1 % (40.0-80.0) H 12/01/17 05:34 Lymphocytes % 7.4 % (20.0-50.0) L 12/01/17 05:34 Monocytes % 6.6 % (2.0-10.0) 12/01/17 05:34 Eosinophils % 0.3 % (0.0-5.0) 12/01/17 05:34 Basophils % 0.6 % (0.0-2.0) 12/01/17 05:34 Neutrophils (Manual) 86 % (40-80) H 11/28/17 07:00 Lymphocytes 8 % (20-50) L 11/28/17 07:00 Monocytes 6 % (2-10) 11/28/17 07:00 Platelet Estimate ADEQUATE (NORMAL) 11/28/17 07:00 Microcytosis 1+ 11/28/17 07:00 Specimen Source AERTERIAL 11/29/17 09:40 Sample Site RB 11/29/17 09:40 pH 7.54 (7.35-7.45) H 11/29/17 09:40 pCO2 59.0 mmHg (35.0-45.0) H* 11/29/17 09:40 pO2 60.0 mmHg (80.0-100.0) L 11/29/17 09:40 HCO3 43.0 mEq/L (20.0-26.0) H 11/29/17 09:40 Base Excess 21.0 mEq/L (-3.0-3.0) H 11/29/17 09:40 O2 Saturation 93.0 % (92.0-100.0) 11/29/17 09:40 Fredy Test Y 11/29/17 09:40 Vent Rate N/A 11/29/17 09:40 Inspired O2 30 11/29/17 09:40 Tidal Volume N/A 11/29/17 09:40 PEEP N/A 11/29/17 09:40 Pressure (ins/psv/peep) N/A 11/29/17 09:40 Critical Value O.VARELA 11/29/17 09:40 Sodium 133 mEq/L (136-145) L 12/01/17 05:34 Potassium 3.3 mEq/L (3.5-5.1) L 12/01/17 05:34 Chloride 84 mEq/L (98-107) L 12/01/17 05:34 Carbon Dioxide 45.3 mEq/L (21.0-31.0) H 12/01/17 05:34 Anion Gap 7.0 (7.0-16.0) 12/01/17 05:34 BUN 14 mg/dL (7-25) 12/01/17 05:34 Creatinine 1.3 mg/dL (0.6-1.2) H 12/01/17 05:34 Est GFR ( Amer) TNP 12/01/17 05:34 Est GFR (Non-Af Amer) TNP 12/01/17 05:34 BUN/Creatinine Ratio 10.8 12/01/17 05:34 Glucose 167 mg/dL (70-105) H 12/01/17 05:34 POC Glucose 159 MG/DL (70 - 105) H 12/01/17 21:29 Hemoglobin A1c % 7.5 % (4.0-6.0) H 11/27/17 05:05 Calcium 7.5 mg/dL (8.6-10.3) L 12/01/17 05:34 Magnesium 2.1 mg/dL (1.9-2.7) 12/01/17 05:34 Total Bilirubin 0.4 mg/dL (0.3-1.0) 11/28/17 07:00 AST 14 U/L (13-39) 11/28/17 07:00 ALT 18 U/L (7-52) 11/28/17 07:00 Alkaline Phosphatase 131 U/L (34-104) H 11/28/17 07:00 B-Natriuretic Peptide 1100.0 pg/mL (5.0-100.0) H 12/01/17 05:34 Total Protein 5.7 gm/dL (6.0-8.3) L 11/28/17 07:00 Albumin 3.0 gm/dL (3.7-5.3) L 11/28/17 07:00 Globulin 2.7 gm/dL 11/28/17 07:00 Albumin/Globulin Ratio 1.1 (1.0-1.8) 11/28/17 07:00 Urine Source CATH 11/26/17 12:10 Urine Color YELLOW 11/26/17 12:10 Urine Clarity HAZY (CLEAR) 11/26/17 12:10 Urine pH 6.0 (4.6 - 8.0) 11/26/17 12:10 Ur Specific [place] 1.025 (1.005-1.030) 11/26/17 12:10 Urine Protein 100 mg/dL (NEGATIVE) H 11/26/17 12:10 Urine Glucose (UA) 100 mg/dL (NEGATIVE) H 11/26/17 12:10 Urine Ketones NEGATIVE mg/dL (NEGATIVE) 11/26/17 12:10 Urine Blood LARGE (NEGATIVE) H 11/26/17 12:10 Urine Nitrate NEGATIVE (NEGATIVE) 11/26/17 12:10 Urine Bilirubin SMALL (NEGATIVE) H 11/26/17 12:10 Urine Urobilinogen 0.2 E.U./dL (0.2 - 1.0) 11/26/17 12:10 Ur Leukocyte Esterase NEGATIVE (NEGATIVE) 11/26/17 12:10 Urine RBC >100 /hpf (0-5) H 11/26/17 12:10 Urine WBC 2-5 /hpf (0-5) 11/26/17 12:10 Ur Epithelial Cells FEW /lpf (FEW) 11/26/17 12:10 Urine Bacteria FEW /hpf (NONE SEEN) 11/26/17 12:10 Hyaline Casts 2-5 /lpf (0-2) H 11/24/17 02:50 Influenza A (Rapid) NEG FOR INF A 11/29/17 11:15 Influenza B (Rapid) NEG FOR INF B 11/29/17 11:15 - Physical Exam Vitals and I&O: Vital Signs Temp 98.2 F 12/01/17 16:00 Pulse 90 12/01/17 23:01 Resp 20 12/01/17 23:01 BP 123/41 12/01/17 19:00 Pulse Ox 99 12/01/17 23:01 Intake & Output 12/01/17 12/01/17 12/02/17 06:59 18:59 06:59 Intake Total 1023.333 550 Output Total 300 1000 Balance 723.333 -450 Weight (lbs) 106.679 kg 106.679 kg Intake: Intake, IV Amount 773.333 100 Dextrose 5% 1,000 ml @ 40 523.333 mls/hr IV .Q24H [facility] Rx#: [id number] Levofloxacin 250mg/50mL 50 250 mg In 50 ml @ 50 mls/ hr IV Q24HR [facility] Rx#: [id number] Piperacillin Sodium/ 200 100 Tazobact 4.5 gm In Sodium Chloride 0.9% 100 ml @ 100 mls/hr IV Q8HR [facility] Rx #:[id number] Oral 250 450 Output: Urine 300 1000 Other: # Bowel Movements 1 0 Stool Characteristics Soft Brown Active Medications: Current Medications Albuterol/Ipratropium (Duoneb Neb) 3 ml HHN Q4HRT [facility] Stop: 01/29/18 18:59 Last Admin: 12/01/17 23:01 Dose: 3 ml Alprazolam (Xanax) 0.25 mg PO Q8HR PRN; Protocol PRN Reason: FOR ANXIETY Stop: 01/25/18 21:53 Last Admin: 11/30/17 21:17 Dose: 0.25 mg Aspirin (Ecotrin) 81 mg PO DAILY [facility] Stop: 01/25/18 08:59 Last Admin: 12/01/17 08:22 Dose: 81 mg Atorvastatin Calcium (Lipitor) 10 mg PO DAILY [facility] Stop: 01/25/18 08:59 Last Admin: 12/01/17 08:21 Dose: 10 mg Carvedilol (Coreg) 25 mg PO BID [facility] Stop: 01/25/18 08:59 Last Admin: 12/01/17 16:53 Dose: 25 mg Dextrose (D50w) 50 ml IVP DAILY PRN PRN Reason: Blood Glucose less than 70 Stop: 01/27/18 08:44 Last Admin: 11/28/17 09:19 Dose: 50 ml Dextrose (Glutose 40%) 18.75 gm PO DAILY PRN PRN Reason: Blood Glucose less than 70 Stop: 01/27/18 08:44 Furosemide (Lasix) 20 mg IVP DAILY [facility] Stop: 01/29/18 08:59 Last Admin: 12/01/17 08:22 Dose: 20 mg Glucagon (Glucagen) 1 mg IM DAILY PRN PRN Reason: Blood Glucose less than 70 Stop: 01/27/18 08:44 Hydralazine HCl (Apresoline 20 Mg/Ml) 10 mg IV Q4HR PRN PRN Reason: Systolic BP Above 160 Stop: 01/29/18 07:03 Levofloxacin (Levaquin Pb) 250 mg in 50 mls @ 50 mls/hr IV Q24HR [facility] Stop: 01/25/18 20:59 Last Admin: 12/01/17 21:33 Dose: 100 mls/hr Piperacillin Sod/Tazobactam (Sod 4.5 gm/ Sodium Chloride) 100 mls @ 100 mls/hr IV Q8HR [facility] Stop: 01/26/18 20:59 Last Admin: 12/01/17 21:32 Dose: 100 mls/hr Insulin Aspart (Novolog Insulin Sliding Scale) 0 units SUBQ ACHS [facility] PRN Reason: Protocol Stop: 01/24/18 16:29 Last Admin: 12/01/17 21:31 Dose: 2 units Insulin Detemir (Levemir Insulin) 40 units SUBQ HS [facility] Stop: 01/25/18 20:59 Last Admin: 12/01/17 21:42 Dose: Not Given Lisinopril (Zestril) 15 mg PO DAILY [facility] Stop: 01/23/18 11:59 Last Admin: 12/01/17 08:19 Dose: 15 mg Lorazepam (Ativan) 0.5 mg IVP BID PRN; Protocol PRN Reason: Anxiety Stop: 01/25/18 21:17 Last Admin: 11/28/17 20:49 Dose: 0.5 mg Morphine Sulfate (Morphine) 1 mg IVP Q4HR PRN PRN Reason: Pain (Moderate) Stop: 01/23/18 11:51 Last Admin: 11/24/17 22:32 Dose: 1 mg Morphine Sulfate (Morphine) 2 mg IVP Q4HR PRN PRN Reason: Pain (Severe) Stop: 01/23/18 11:51 Last Admin: 11/28/17 11:49 Dose: 2 mg Ondansetron HCl (Zofran) 4 mg IV Q4H PRN PRN Reason: Nausea / Vomiting Stop: 01/23/18 11:56 Pentoxifylline (Trental) 400 mg PO BID [facility] Stop: 01/25/18 08:59 Last Admin: 12/01/17 17:33 Dose: Not Given Potassium Chloride (Klor-Con) 20 meq PO DAILY [facility] Stop: 01/30/18 13:59 Last Admin: 12/01/17 16:54 Dose: 20 meq Sitagliptin Phosphate (Januvia) 25 mg PO DAILY [facility] Stop: 01/25/18 08:59 Last Admin: 12/01/17 08:22 Dose: 25 mg Tramadol HCl (Ultram) 50 mg PO Q6HR PRN PRN Reason: Pain (Moderate) Stop: 01/29/18 00:00 Last Admin: 12/01/17 11:13 Dose: 50 mg General: no acute distress, well developed, well nourished HEENT: atraumatic, normocephalic, PERRLA Neck: supple Cardiovascular: S1S2, regular Lungs: clear to auscultation bilaterally, rhonchi Abdomen: soft, no hepatomegaly Extremities: no cyanosis, no clubbing, no edema Neurological: awake, alert, oriented - Procedures Procedures: Procedures Procedure Code Date ASSISTANCE WITH RESPIRATORY VENTILATION, 24-96 HRS, CPAP [id number] 11/24/17 DRAINAGE OF SKIN ABSCESS 02499 07/03/05 OTHER SKIN & SUBQ I D 86.04 07/03/05 POS AIRWAY PRESSURE CPAP 76760 11/24/17 Infectious Disease Assmt/Plan - Problem List Patient Problems: All Active Problems Anemia (Acute) D64.9 Anxiety (Acute) F41.9 COPD exacerbation (Acute) J44.1 Diabetes (Acute) E11.9 General weakness (Acute) HTN (hypertension) (Acute) I10 Hyperlipidemia (Acute) E78.5 - Assessment Assessment: 1. Pneumonia . 2. altered mental status, likey 2/2 CO2 Narcosis. cannot rule out any other etiologies. 3. CHF 4. rbice cardia ( borderline). 5. Right leg wound, suspect venous stasis ulcer and pyoderma gangrenosum. 6. Insominia - Plan Plan: Continue Zosyn and Levaquin. start restoril Nutritional Asmnt/Malnutr-PDOC - Dietary Evaluation Malnutrition Findings (Please click <Entered> for more info): Nutritional Asmnt/Malnutrition Start: 11/25/17 18: 26 Text: Status: Complete Freq: Document 11/25/17 18:26 LCHENG (Rec: 11/25/17 18:33 [facility] Nutritional Asmnt/Malnutrition Patient General Information Nutritional Screening High Risk Consult Diagnosis anemia, COPD, respiratory acidosis Pertinent Medical Hx/Surgical Hx anemia, DM per family Subjective Information consult received for diebetic foot ulcer, skin integrity/ wound. . pt seen resting in bed at the time of visit, family at bedside. family reported pt got regular diet tray this morning, wanted diabetic diet. Pt only had some oatmeal for breakfast and squash and applesauce for lunch, low appetite d/t disease. Family denied pt having chewing problem with dentures. Per notes, PO intake 25-50% 1/ Current Diet Order/ Nutrition Support Regular Pertinent Medications novolog, nacl 0.9% Pertinent Labs 1/2 Na 128, K 3.2, Cl 95, BUN 15, Cr 0.8, Glucose 83, ca 8.0 1/ POC 165-167 Nutritional Hx/Data Height 1.65 m Height (Calculated Centimeters) 165.1 Current Weight (lbs) 77.111 kg Weight (Calculated Kilograms) 77.1 Weight (Calculated Grams) 65903.7 [place] Body Weight 125 % [place] Body Weight 136 Body Mass Index (BMI) 28.3 Weight Status Overweight GI Symptoms GI Symptoms None Difficult in: None Skin Integrity/Comment: decubitus to right foot Current %PO Poor (25-49%) Estimated Nutritional Goals BEE in Kcals: Using Current wt Calories/Kcals/Kg 25 Kcals Calculated 1924 Protein: Using Current wt Protein g/k Protein Calculated 77 Fluid: ml 1924 Nutritional Problem 1. Problem Problem inadquate food intake Etiology poor appetite Signs/Symptoms: PO intake <50% Malnutrition Alert Protein-Calorie Malnutrition N/A Is there a minimum of two criteria No selected? Query Text:Check all the applicable criteria. A minimum of two criteria are recommended for diagnosis of either severe or non-severe malnutrition. Intervention/Recommendation Comments 1. Recommend CCHO diet with Boost Glucose Control BID. Notified RN. 2. Monitor PO intake, wt, labs and skin integrity 3. F/U as high risk in 2-3 days, 11/27-11/28 Expected Outcomes/Goals Expected Outcomes/Goals 1. PO intake to improve, to meet at least 75% of nutritional needs. 2. Wt stability, skin to remain intact, labs to improve
[2017-12-02] MEDS: Albuterol/Ipratropium Neb 3 ML AERS HHN SCH ×6 (03:46→23:08)
[2017-12-02 05:21] LABS: % BASOPHILS 0.5 % (0.0-2.0); % EOSINOPHILS 0.4 % (0.0-5.0); % LYMPHOCYTES 9.5 % (20.0-50.0); % NEUTROPHILS 79.6 % (40.0-80.0); BASOPHILE ABSOLUTE 0.1 Th/cumm (0-0.2); EOSINOPHILE ABSOLUTE 0.1 Th/cmm (0.1-0.4); HEMATOCRIT 27.5 % (41.0-60); LYMPHOCYTE ABSOLUTE 1.3 Th/cmm (1.5-3.0); MEAN CELL VOLUME 79.2 fl (81-100); MEAN CORPUSCULAR HEMOGLOBIN 25.9 pg (27.0-31.0); MEAN CORPUSCULAR HGB CONC 32.7 pg (28.0-36.0); MONOCYTE ABSOLUTE 1.4 Th/cmm (0.3-1.0); NEUTROPHILE ABSOLUTE 11.1 Th/cmm (1.8-8.0); PLATELET COUNT 225 Th/cmm (150-400); RED BLOOD COUNT 3.48 Mil/cmm (3.80-5.20); RED CELL DISTRIBUTION WIDTH 14.9 % (11.5-20.0)
[2017-12-02 05:45] LABS: ANION GAP 7.1 (7.0-16.0); BUN - UREA NITROGEN 15 mg/dL (7-25); CALCIUM SERUM 7.7 mg/dL (8.6-10.3); CHLORIDE 83 mEq/L (98-107); CREATININE - SERUM 1.4 mg/dL (0.6-1.2); GLUCOSE 110 mg/dL (70-105); SODIUM SERUM 131 mEq/L (136-145)
[2017-12-02 06:36] LABS: CARBON DIOXIDE 43.9 mEq/L (21.0-31.0)
[2017-12-02] MEDS: INSULIN ASPART SLIDING SCALE 100 UNITS/ML UNIT SUBQ SCH ×4 (06:49→21:25)
--- NOTE | 2017-12-02 08:39 | General Progress Note ---
Subjective - Review of Systems Events since last encounter: no distress c/o trouble sleeping Objective - Results Result Diagrams: 12/02/17 04:59 12/02/17 04:59 Recent Labs: Laboratory Last Values WBC 14.0 Th/cmm (4.8-10.8) H 12/02/17 04:59 RBC 3.48 Mil/cmm (3.80-5.20) L 12/02/17 04:59 Hgb 9.0 gm/dL (12-16) L 12/02/17 04:59 Hct 27.5 % (41.0-60) L 12/02/17 04:59 MCV 79.2 fl (81-100) L 12/02/17 04:59 MCH 25.9 pg (27.0-31.0) L 12/02/17 04:59 MCHC Differential 32.7 pg (28.0-36.0) 12/02/17 04:59 RDW 14.9 % (11.5-20.0) 12/02/17 04:59 Plt Count 225 Th/cmm (150-400) 12/02/17 04:59 MPV 7.0 fl 12/02/17 04:59 Neutrophils % 79.6 % (40.0-80.0) 12/02/17 04:59 Lymphocytes % 9.5 % (20.0-50.0) L 12/02/17 04:59 Monocytes % 10.0 % (2.0-10.0) 12/02/17 04:59 Eosinophils % 0.4 % (0.0-5.0) 12/02/17 04:59 Basophils % 0.5 % (0.0-2.0) 12/02/17 04:59 Neutrophils (Manual) 86 % (40-80) H 11/28/17 07:00 Lymphocytes 8 % (20-50) L 11/28/17 07:00 Monocytes 6 % (2-10) 11/28/17 07:00 Platelet Estimate ADEQUATE (NORMAL) 11/28/17 07:00 Microcytosis 1+ 11/28/17 07:00 Specimen Source AERTERIAL 11/29/17 09:40 Sample Site RB 11/29/17 09:40 pH 7.54 (7.35-7.45) H 11/29/17 09:40 pCO2 59.0 mmHg (35.0-45.0) H* 11/29/17 09:40 pO2 60.0 mmHg (80.0-100.0) L 11/29/17 09:40 HCO3 43.0 mEq/L (20.0-26.0) H 11/29/17 09:40 Base Excess 21.0 mEq/L (-3.0-3.0) H 11/29/17 09:40 O2 Saturation 93.0 % (92.0-100.0) 11/29/17 09:40 Fredy Test Y 11/29/17 09:40 Vent Rate N/A 11/29/17 09:40 Inspired O2 30 11/29/17 09:40 Tidal Volume N/A 11/29/17 09:40 PEEP N/A 11/29/17 09:40 Pressure (ins/psv/peep) N/A 11/29/17 09:40 Critical Value O.VARELA 11/29/17 09:40 Sodium 131 mEq/L (136-145) L 12/02/17 04:59 Potassium 3.0 mEq/L (3.5-5.1) L 12/02/17 04:59 Chloride 83 mEq/L (98-107) L 12/02/17 04:59 Carbon Dioxide 43.9 mEq/L (21.0-31.0) H 12/02/17 04:59 Anion Gap 7.1 (7.0-16.0) 12/02/17 04:59 BUN 15 mg/dL (7-25) 12/02/17 04:59 Creatinine 1.4 mg/dL (0.6-1.2) H 12/02/17 04:59 Est GFR ( Amer) TNP 12/02/17 04:59 Est GFR (Non-Af Amer) TNP 12/02/17 04:59 BUN/Creatinine Ratio 10.7 12/02/17 04:59 Glucose 110 mg/dL (70-105) H 12/02/17 04:59 POC Glucose 109 MG/DL (70 - 105) H 12/02/17 05:31 Hemoglobin A1c % 7.5 % (4.0-6.0) H 11/27/17 05:05 Calcium 7.7 mg/dL (8.6-10.3) L 12/02/17 04:59 Magnesium 2.1 mg/dL (1.9-2.7) 12/01/17 05:34 Total Bilirubin 0.4 mg/dL (0.3-1.0) 11/28/17 07:00 AST 14 U/L (13-39) 11/28/17 07:00 ALT 18 U/L (7-52) 11/28/17 07:00 Alkaline Phosphatase 131 U/L (34-104) H 11/28/17 07:00 B-Natriuretic Peptide 1100.0 pg/mL (5.0-100.0) H 12/01/17 05:34 Total Protein 5.7 gm/dL (6.0-8.3) L 11/28/17 07:00 Albumin 3.0 gm/dL (3.7-5.3) L 11/28/17 07:00 Globulin 2.7 gm/dL 11/28/17 07:00 Albumin/Globulin Ratio 1.1 (1.0-1.8) 11/28/17 07:00 Urine Source CATH 11/26/17 12:10 Urine Color YELLOW 11/26/17 12:10 Urine Clarity HAZY (CLEAR) 11/26/17 12:10 Urine pH 6.0 (4.6 - 8.0) 11/26/17 12:10 Ur Specific [place] 1.025 (1.005-1.030) 11/26/17 12:10 Urine Protein 100 mg/dL (NEGATIVE) H 11/26/17 12:10 Urine Glucose (UA) 100 mg/dL (NEGATIVE) H 11/26/17 12:10 Urine Ketones NEGATIVE mg/dL (NEGATIVE) 11/26/17 12:10 Urine Blood LARGE (NEGATIVE) H 11/26/17 12:10 Urine Nitrate NEGATIVE (NEGATIVE) 11/26/17 12:10 Urine Bilirubin SMALL (NEGATIVE) H 11/26/17 12:10 Urine Urobilinogen 0.2 E.U./dL (0.2 - 1.0) 11/26/17 12:10 Ur Leukocyte Esterase NEGATIVE (NEGATIVE) 11/26/17 12:10 Urine RBC >100 /hpf (0-5) H 11/26/17 12:10 Urine WBC 2-5 /hpf (0-5) 11/26/17 12:10 Ur Epithelial Cells FEW /lpf (FEW) 11/26/17 12:10 Urine Bacteria FEW /hpf (NONE SEEN) 11/26/17 12:10 Hyaline Casts 2-5 /lpf (0-2) H 11/24/17 02:50 Influenza A (Rapid) NEG FOR INF A 11/29/17 11:15 Influenza B (Rapid) NEG FOR INF B 11/29/17 11:15 - Physical Exam Vitals and I&O: Vital Signs Temp 97.6 F 12/02/17 04:00 Pulse 79 12/02/17 07:02 Resp 18 12/02/17 07:02 BP 147/53 12/02/17 04:00 Pulse Ox 99 12/02/17 07:02 Intake & Output 12/01/17 12/02/17 12/02/17 18:59 06:59 18:59 Intake Total 550 370 Output Total 1000 700 Balance -450 -330 Weight (lbs) 106.679 kg 105.687 kg Intake: Intake, IV Amount 100 250 Levofloxacin 250mg/50mL 50 250 mg In 50 ml @ 50 mls/ hr IV Q24HR [facility] Rx#: [id number] Piperacillin Sodium/ 100 200 Tazobact 4.5 gm In Sodium Chloride 0.9% 100 ml @ 100 mls/hr IV Q8HR [facility] Rx #:[id number] Oral 450 120 Output: Urine 1000 700 Other: # Bowel Movements 0 Active Medications: Current Medications Albuterol/Ipratropium (Duoneb Neb) 3 ml HHN Q4HRT [facility] Stop: 01/29/18 18:59 Last Admin: 12/02/17 07:02 Dose: 3 ml Alprazolam (Xanax) 0.25 mg PO Q8HR PRN; Protocol PRN Reason: FOR ANXIETY Stop: 01/25/18 21:53 Last Admin: 11/30/17 21:17 Dose: 0.25 mg Aspirin (Ecotrin) 81 mg PO DAILY [facility] Stop: 01/25/18 08:59 Last Admin: 12/01/17 08:22 Dose: 81 mg Atorvastatin Calcium (Lipitor) 10 mg PO DAILY [facility] Stop: 01/25/18 08:59 Last Admin: 12/01/17 08:21 Dose: 10 mg Carvedilol (Coreg) 25 mg PO BID [facility] Stop: 01/25/18 08:59 Last Admin: 12/01/17 16:53 Dose: 25 mg Dextrose (D50w) 50 ml IVP DAILY PRN PRN Reason: Blood Glucose less than 70 Stop: 01/27/18 08:44 Last Admin: 11/28/17 09:19 Dose: 50 ml Dextrose (Glutose 40%) 18.75 gm PO DAILY PRN PRN Reason: Blood Glucose less than 70 Stop: 01/27/18 08:44 Furosemide (Lasix) 20 mg IVP DAILY [facility] Stop: 01/29/18 08:59 Last Admin: 12/01/17 08:22 Dose: 20 mg Glucagon (Glucagen) 1 mg IM DAILY PRN PRN Reason: Blood Glucose less than 70 Stop: 01/27/18 08:44 Hydralazine HCl (Apresoline 20 Mg/Ml) 10 mg IV Q4HR PRN PRN Reason: Systolic BP Above 160 Stop: 01/29/18 07:03 Levofloxacin (Levaquin Pb) 250 mg in 50 mls @ 50 mls/hr IV Q24HR [facility] Stop: 01/25/18 20:59 Last Infusion: 12/01/17 22:03 Dose: Infused Piperacillin Sod/Tazobactam (Sod 4.5 gm/ Sodium Chloride) 100 mls @ 100 mls/hr IV Q8HR [facility] Stop: 01/26/18 20:59 Last Infusion: 12/02/17 05:51 Dose: Infused Insulin Aspart (Novolog Insulin Sliding Scale) 0 units SUBQ ACHS [facility] PRN Reason: Protocol Stop: 01/24/18 16:29 Last Admin: 12/02/17 06:49 Dose: Not Given Insulin Detemir (Levemir Insulin) 40 units SUBQ HS [facility] Stop: 01/25/18 20:59 Last Admin: 12/01/17 21:42 Dose: Not Given Lisinopril (Zestril) 15 mg PO DAILY [facility] Stop: 01/23/18 11:59 Last Admin: 12/01/17 08:19 Dose: 15 mg Lorazepam (Ativan) 0.5 mg IVP BID PRN; Protocol PRN Reason: Anxiety Stop: 01/25/18 21:17 Last Admin: 11/28/17 20:49 Dose: 0.5 mg Morphine Sulfate (Morphine) 1 mg IVP Q4HR PRN PRN Reason: Pain (Moderate) Stop: 01/23/18 11:51 Last Admin: 11/24/17 22:32 Dose: 1 mg Morphine Sulfate (Morphine) 2 mg IVP Q4HR PRN PRN Reason: Pain (Severe) Stop: 01/23/18 11:51 Last Admin: 11/28/17 11:49 Dose: 2 mg Ondansetron HCl (Zofran) 4 mg IV Q4H PRN PRN Reason: Nausea / Vomiting Stop: 01/23/18 11:56 Pentoxifylline (Trental) 400 mg PO BID [facility] Stop: 01/25/18 08:59 Last Admin: 12/01/17 17:33 Dose: Not Given Potassium Chloride (Klor-Con) 20 meq PO DAILY [facility] Stop: 01/30/18 13:59 Last Admin: 12/01/17 16:54 Dose: 20 meq Sitagliptin Phosphate (Januvia) 25 mg PO DAILY [facility] Stop: 01/25/18 08:59 Last Admin: 12/01/17 08:22 Dose: 25 mg Temazepam (Restoril) 15 mg PO HS PRN; Protocol PRN Reason: Insomnia Stop: 01/31/18 01:41 Last Admin: 12/02/17 01:49 Dose: 15 mg Tramadol HCl (Ultram) 50 mg PO Q6HR PRN PRN Reason: Pain (Moderate) Stop: 01/29/18 00:00 Last Admin: 12/01/17 11:13 Dose: 50 mg General: No acute distress HEENT: Atraumatic Neck: Supple Cardiovascular: Regular rate - Procedures Procedures: Procedures Procedure Code Date ASSISTANCE WITH RESPIRATORY VENTILATION, 24-96 HRS, CPAP [id number] 11/24/17 DRAINAGE OF SKIN ABSCESS 30644 07/03/05 OTHER SKIN & SUBQ I D 86.04 07/03/05 POS AIRWAY PRESSURE CPAP 41829 11/24/17 Assessment/Plan - Problem List Patient Problems: All Active Problems Anemia (Acute) D64.9 Anxiety (Acute) F41.9 COPD exacerbation (Acute) J44.1 Diabetes (Acute) E11.9 General weakness (Acute) HTN (hypertension) (Acute) I10 Hyperlipidemia (Acute) E78.5 - Plan Plan: cpm Nutritional Asmnt/Malnutr-PDOC - Dietary Evaluation Malnutrition Findings (Please click <Entered> for more info): Nutritional Asmnt/Malnutrition Start: 11/25/17 18: 26 Text: Status: Complete Freq: Document 11/25/17 18:26 LCBEE (Rec: 11/25/17 18:33 LCBEE [email or web address]) Nutritional Asmnt/Malnutrition Patient General Information Nutritional Screening High Risk Consult Diagnosis anemia, COPD, respiratory acidosis Pertinent Medical Hx/Surgical Hx anemia, DM per family Subjective Information consult received for diebetic foot ulcer, skin integrity/ wound. . pt seen resting in bed at the time of visit, family at bedside. family reported pt got regular diet tray this morning, wanted diabetic diet. Pt only had some oatmeal for breakfast and squash and applesauce for lunch, low appetite d/t disease. Family denied pt having chewing problem with dentures. Per notes, PO intake 25-50% 11/25 Current Diet Order/ Nutrition Support Regular Pertinent Medications novolog, nacl 0.9% Pertinent Labs 11/23 Na 128, K 3.2, Cl 95, BUN 15, Cr 0.8, Glucose 83, ca 8.0 11/25 POC 165-167 Nutritional Hx/Data Height 1.65 m Height (Calculated Centimeters) 165.1 Current Weight (lbs) 77.111 kg Weight (Calculated Kilograms) 77.1 Weight (Calculated Grams) 31969.7 [place] Body Weight 125 % [place] Body Weight 136 Body Mass Index (BMI) 28.3 Weight Status Overweight GI Symptoms GI Symptoms None Difficult in: None Skin Integrity/Comment: decubitus to right foot Current %PO Poor (25-49%) Estimated Nutritional Goals BEE in Kcals: Using Current wt Calories/Kcals/Kg 25 Kcals Calculated 192 Protein: Using Current wt Protein g/k Protein Calculated 77 Fluid: ml 1924 Nutritional Problem 1. Problem Problem inadquate food intake Etiology poor appetite Signs/Symptoms: PO intake <50% Malnutrition Alert Protein-Calorie Malnutrition N/A Is there a minimum of two criteria No selected? Query Text:Check all the applicable criteria. A minimum of two criteria are recommended for diagnosis of either severe or non-severe malnutrition. Intervention/Recommendation Comments 1. Recommend CCHO diet with Boost Glucose Control BID. Notified RN. 2. Monitor PO intake, wt, labs and skin integrity 3. F/U as high risk in 2-3 days, 11/27-11/28 Expected Outcomes/Goals Expected Outcomes/Goals 1. PO intake to improve, to meet at least 75% of nutritional needs. 2. Wt stability, skin to remain intact, labs to improve
[2017-12-02] MEDS: Potassium Chloride 20 mEq ER Tab PO SCH (09:42)
[2017-12-02] MEDS: Atorvastatin Calcium 10 MG TAB PO SCH (09:43)
--- NOTE | 2017-12-02 14:54 | Infectious Disease Prog Note ---
Infectious Disease Subjective - Review of Systems Service Date: 12/02/17 Subjective: Patient is alert and awake. Not in acute distress. No fever. c/o insomnia. Infectious Disease Objective - Results Result Diagrams: 12/02/17 04:59 12/02/17 04:59 Recent Labs: Laboratory Last Values WBC 14.0 Th/cmm (4.8-10.8) H 12/02/17 04:59 RBC 3.48 Mil/cmm (3.80-5.20) L 12/02/17 04:59 Hgb 9.0 gm/dL (12-16) L 12/02/17 04:59 Hct 27.5 % (41.0-60) L 12/02/17 04:59 MCV 79.2 fl (81-100) L 12/02/17 04:59 MCH 25.9 pg (27.0-31.0) L 12/02/17 04:59 MCHC Differential 32.7 pg (28.0-36.0) 12/02/17 04:59 RDW 14.9 % (11.5-20.0) 12/02/17 04:59 Plt Count 225 Th/cmm (150-400) 12/02/17 04:59 MPV 7.0 fl 12/02/17 04:59 Neutrophils % 79.6 % (40.0-80.0) 12/02/17 04:59 Lymphocytes % 9.5 % (20.0-50.0) L 12/02/17 04:59 Monocytes % 10.0 % (2.0-10.0) 12/02/17 04:59 Eosinophils % 0.4 % (0.0-5.0) 12/02/17 04:59 Basophils % 0.5 % (0.0-2.0) 12/02/17 04:59 Neutrophils (Manual) 86 % (40-80) H 11/28/17 07:00 Lymphocytes 8 % (20-50) L 11/28/17 07:00 Monocytes 6 % (2-10) 11/28/17 07:00 Platelet Estimate ADEQUATE (NORMAL) 11/28/17 07:00 Microcytosis 1+ 11/28/17 07:00 Specimen Source AERTERIAL 11/29/17 09:40 Sample Site RB 11/29/17 09:40 pH 7.54 (7.35-7.45) H 11/29/17 09:40 pCO2 59.0 mmHg (35.0-45.0) H* 11/29/17 09:40 pO2 60.0 mmHg (80.0-100.0) L 11/29/17 09:40 HCO3 43.0 mEq/L (20.0-26.0) H 11/29/17 09:40 Base Excess 21.0 mEq/L (-3.0-3.0) H 11/29/17 09:40 O2 Saturation 93.0 % (92.0-100.0) 11/29/17 09:40 Fredy Test Y 11/29/17 09:40 Vent Rate N/A 11/29/17 09:40 Inspired O2 30 11/29/17 09:40 Tidal Volume N/A 11/29/17 09:40 PEEP N/A 11/29/17 09:40 Pressure (ins/psv/peep) N/A 11/29/17 09:40 Critical Value O.VARELA 11/29/17 09:40 Sodium 131 mEq/L (136-145) L 12/02/17 04:59 Potassium 3.0 mEq/L (3.5-5.1) L 12/02/17 04:59 Chloride 83 mEq/L (98-107) L 12/02/17 04:59 Carbon Dioxide 43.9 mEq/L (21.0-31.0) H 12/02/17 04:59 Anion Gap 7.1 (7.0-16.0) 12/02/17 04:59 BUN 15 mg/dL (7-25) 12/02/17 04:59 Creatinine 1.4 mg/dL (0.6-1.2) H 12/02/17 04:59 Est GFR ( Amer) TNP 12/02/17 04:59 Est GFR (Non-Af Amer) TNP 12/02/17 04:59 BUN/Creatinine Ratio 10.7 12/02/17 04:59 Glucose 110 mg/dL (70-105) H 12/02/17 04:59 POC Glucose 150 MG/DL (70 - 105) H 12/02/17 11:54 Hemoglobin A1c % 7.5 % (4.0-6.0) H 11/27/17 05:05 Calcium 7.7 mg/dL (8.6-10.3) L 12/02/17 04:59 Magnesium 2.1 mg/dL (1.9-2.7) 12/01/17 05:34 Total Bilirubin 0.4 mg/dL (0.3-1.0) 11/28/17 07:00 AST 14 U/L (13-39) 11/28/17 07:00 ALT 18 U/L (7-52) 11/28/17 07:00 Alkaline Phosphatase 131 U/L (34-104) H 11/28/17 07:00 B-Natriuretic Peptide 1100.0 pg/mL (5.0-100.0) H 12/01/17 05:34 Total Protein 5.7 gm/dL (6.0-8.3) L 11/28/17 07:00 Albumin 3.0 gm/dL (3.7-5.3) L 11/28/17 07:00 Globulin 2.7 gm/dL 11/28/17 07:00 Albumin/Globulin Ratio 1.1 (1.0-1.8) 11/28/17 07:00 Urine Source CATH 11/26/17 12:10 Urine Color YELLOW 11/26/17 12:10 Urine Clarity HAZY (CLEAR) 11/26/17 12:10 Urine pH 6.0 (4.6 - 8.0) 11/26/17 12:10 Ur Specific [place] 1.025 (1.005-1.030) 11/26/17 12:10 Urine Protein 100 mg/dL (NEGATIVE) H 11/26/17 12:10 Urine Glucose (UA) 100 mg/dL (NEGATIVE) H 11/26/17 12:10 Urine Ketones NEGATIVE mg/dL (NEGATIVE) 11/26/17 12:10 Urine Blood LARGE (NEGATIVE) H 11/26/17 12:10 Urine Nitrate NEGATIVE (NEGATIVE) 11/26/17 12:10 Urine Bilirubin SMALL (NEGATIVE) H 11/26/17 12:10 Urine Urobilinogen 0.2 E.U./dL (0.2 - 1.0) 11/26/17 12:10 Ur Leukocyte Esterase NEGATIVE (NEGATIVE) 11/26/17 12:10 Urine RBC >100 /hpf (0-5) H 11/26/17 12:10 Urine WBC 2-5 /hpf (0-5) 11/26/17 12:10 Ur Epithelial Cells FEW /lpf (FEW) 11/26/17 12:10 Urine Bacteria FEW /hpf (NONE SEEN) 11/26/17 12:10 Hyaline Casts 2-5 /lpf (0-2) H 11/24/17 02:50 Influenza A (Rapid) NEG FOR INF A 11/29/17 11:15 Influenza B (Rapid) NEG FOR INF B 11/29/17 11:15 - Physical Exam Vitals and I&O: Vital Signs Temp 98.3 F 12/02/17 12:09 Pulse 87 12/02/17 12:09 Resp 19 12/02/17 12:09 BP 167/51 12/02/17 12:09 Pulse Ox 99 12/02/17 12:09 Intake & Output 12/01/17 12/02/17 12/02/17 18:59 06:59 18:59 Intake Total 550 370 Output Total 1000 700 Balance -450 -330 Weight (lbs) 106.679 kg 105.687 kg Intake: Intake, IV Amount 100 250 Levofloxacin 250mg/50mL 50 250 mg In 50 ml @ 50 mls/ hr IV Q24HR [facility] Rx#: [id number] Piperacillin Sodium/ 100 200 Tazobact 4.5 gm In Sodium Chloride 0.9% 100 ml @ 100 mls/hr IV Q8HR [facility] Rx #:[id number] Oral 450 120 Output: Urine 1000 700 Other: # Bowel Movements 0 Active Medications: Current Medications Albuterol/Ipratropium (Duoneb Neb) 3 ml HHN Q4HRT [facility] Stop: 01/29/18 18:59 Last Admin: 12/02/17 11:39 Dose: 3 ml Alprazolam (Xanax) 0.25 mg PO Q8HR PRN; Protocol PRN Reason: FOR ANXIETY Stop: 01/25/18 21:53 Last Admin: 11/30/17 21:17 Dose: 0.25 mg Aspirin (Ecotrin) 81 mg PO DAILY [facility] Stop: 01/25/18 08:59 Last Admin: 12/02/17 09:43 Dose: 81 mg Atorvastatin Calcium (Lipitor) 10 mg PO DAILY [facility] Stop: 01/25/18 08:59 Last Admin: 12/02/17 09:43 Dose: 10 mg Carvedilol (Coreg) 25 mg PO BID [facility] Stop: 01/25/18 08:59 Last Admin: 12/02/17 09:42 Dose: Not Given Dextrose (D50w) 50 ml IVP DAILY PRN PRN Reason: Blood Glucose less than 70 Stop: 01/27/18 08:44 Last Admin: 11/28/17 09:19 Dose: 50 ml Dextrose (Glutose 40%) 18.75 gm PO DAILY PRN PRN Reason: Blood Glucose less than 70 Stop: 01/27/18 08:44 Furosemide (Lasix) 20 mg IVP DAILY [facility] Stop: 01/29/18 08:59 Last Admin: 12/02/17 09:41 Dose: Not Given Glucagon (Glucagen) 1 mg IM DAILY PRN PRN Reason: Blood Glucose less than 70 Stop: 01/27/18 08:44 Hydralazine HCl (Apresoline 20 Mg/Ml) 10 mg IV Q4HR PRN PRN Reason: Systolic BP Above 160 Stop: 01/29/18 07:03 Levofloxacin (Levaquin Pb) 250 mg in 50 mls @ 50 mls/hr IV Q24HR [facility] Stop: 01/25/18 20:59 Last Infusion: 12/01/17 22:03 Dose: Infused Piperacillin Sod/Tazobactam (Sod 4.5 gm/ Sodium Chloride) 100 mls @ 100 mls/hr IV Q8HR [facility] Stop: 01/26/18 20:59 Last Admin: 12/02/17 12:34 Dose: 100 mls/hr Insulin Aspart (Novolog Insulin Sliding Scale) 0 units SUBQ ACHS [facility] PRN Reason: Protocol Stop: 01/24/18 16:29 Last Admin: 12/02/17 11:56 Dose: Not Given Insulin Detemir (Levemir Insulin) 40 units SUBQ HS [facility] Stop: 01/25/18 20:59 Last Admin: 12/01/17 21:42 Dose: Not Given Lisinopril (Zestril) 15 mg PO DAILY [facility] Stop: 01/23/18 11:59 Last Admin: 12/02/17 09:43 Dose: Not Given Lorazepam (Ativan) 0.5 mg IVP BID PRN; Protocol PRN Reason: Anxiety Stop: 01/25/18 21:17 Last Admin: 11/28/17 20:49 Dose: 0.5 mg Morphine Sulfate (Morphine) 1 mg IVP Q4HR PRN PRN Reason: Pain (Moderate) Stop: 01/23/18 11:51 Last Admin: 11/24/17 22:32 Dose: 1 mg Morphine Sulfate (Morphine) 2 mg IVP Q4HR PRN PRN Reason: Pain (Severe) Stop: 01/23/18 11:51 Last Admin: 11/28/17 11:49 Dose: 2 mg Ondansetron HCl (Zofran) 4 mg IV Q4H PRN PRN Reason: Nausea / Vomiting Stop: 01/23/18 11:56 Pentoxifylline (Trental) 400 mg PO BID [facility] Stop: 01/25/18 08:59 Last Admin: 12/02/17 09:43 Dose: 400 mg Potassium Chloride (Klor-Con) 20 meq PO DAILY [facility] Stop: 01/30/18 13:59 Last Admin: 12/02/17 09:42 Dose: 20 meq Sitagliptin Phosphate (Januvia) 25 mg PO DAILY [facility] Stop: 01/25/18 08:59 Last Admin: 12/02/17 09:43 Dose: 25 mg Temazepam (Restoril) 15 mg PO HS PRN; Protocol PRN Reason: Insomnia Stop: 01/31/18 01:41 Last Admin: 12/02/17 01:49 Dose: 15 mg Tramadol HCl (Ultram) 50 mg PO Q6HR PRN PRN Reason: Pain (Moderate) Stop: 01/29/18 00:00 Last Admin: 12/01/17 11:13 Dose: 50 mg General: no acute distress, well developed, well nourished HEENT: atraumatic, normocephalic, PERRLA, EOMI, moist mucous membrane, dry Neck: supple, no thyromegaly, no lymphadenopathy, no rigid, no lines, no tracheostomy Cardiovascular: S1S2, regular, systolic murmur Lungs: clear to auscultation bilaterally, clear to percussion Abdomen: soft, no tender, no distended, no rebound, no hepatomegaly, no splenomegaly Extremities: no cyanosis, no clubbing, no edema Neurological: awake, alert, oriented Skin: intact - Procedures Procedures: Procedures Procedure Code Date ASSISTANCE WITH RESPIRATORY VENTILATION, 24-96 HRS, CPAP [id number] 11/24/17 DRAINAGE OF SKIN ABSCESS 88119 07/03/05 OTHER SKIN & SUBQ I D 86.04 07/03/05 POS AIRWAY PRESSURE CPAP 17621 11/24/17 Infectious Disease Assmt/Plan - Problem List Patient Problems: All Active Problems Anemia (Acute) D64.9 Anxiety (Acute) F41.9 COPD exacerbation (Acute) J44.1 Diabetes (Acute) E11.9 General weakness (Acute) HTN (hypertension) (Acute) I10 Hyperlipidemia (Acute) E78.5 - Assessment Assessment: 1. Pneumonia . 2. altered mental status, likey 2/2 CO2 Narcosis. cannot rule out any other etiologies. 3. CHF 4. brice cardia ( borderline). 5. Right leg wound, suspect venous stasis ulcer and pyoderma gangrenosum. 6. Insominia - Plan Plan: Continue Zosyn and Levaquin. continue. restoril Nutritional Asmnt/Malnutr-PDOC - Dietary Evaluation Malnutrition Findings (Please click <Entered> for more info): Nutritional Asmnt/Malnutrition Start: 11/25/17 18: 26 Text: Status: Complete Freq: Document 11/25/17 18:26 LCHENG (Rec: 11/25/17 18:33 LCHENG [email or web address]) Nutritional Asmnt/Malnutrition Patient General Information Nutritional Screening High Risk Consult Diagnosis anemia, COPD, respiratory acidosis Pertinent Medical Hx/Surgical Hx anemia, DM per family Subjective Information consult received for diebetic foot ulcer, skin integrity/ wound. . pt seen resting in bed at the time of visit, family at bedside. family reported pt got regular diet tray this morning, wanted diabetic diet. Pt only had some oatmeal for breakfast and squash and applesauce for lunch, low appetite d/t disease. Family denied pt having chewing problem with dentures. Per notes, PO intake 25-50% 1/ Current Diet Order/ Nutrition Support Regular Pertinent Medications novolog, nacl 0.9% Pertinent Labs 1/2 Na 128, K 3.2, Cl 95, BUN 15, Cr 0.8, Glucose 83, ca 8.0 1/ POC 165-167 Nutritional Hx/Data Height 1.65 m Height (Calculated Centimeters) 165.1 Current Weight (lbs) 77.111 kg Weight (Calculated Kilograms) 77.1 Weight (Calculated Grams) 92598.7 [place] Body Weight 125 % [place] Body Weight 136 Body Mass Index (BMI) 28.3 Weight Status Overweight GI Symptoms GI Symptoms None Difficult in: None Skin Integrity/Comment: decubitus to right foot Current %PO Poor (25-49%) Estimated Nutritional Goals BEE in Kcals: Using Current wt Calories/Kcals/Kg 25 Kcals Calculated 192 Protein: Using Current wt Protein g/k Protein Calculated 77 Fluid: ml 192 Nutritional Problem 1. Problem Problem inadquate food intake Etiology poor appetite Signs/Symptoms: PO intake <50% Malnutrition Alert Protein-Calorie Malnutrition N/A Is there a minimum of two criteria No selected? Query Text:Check all the applicable criteria. A minimum of two criteria are recommended for diagnosis of either severe or non-severe malnutrition. Intervention/Recommendation Comments 1. Recommend CCHO diet with Boost Glucose Control BID. Notified RN. 2. Monitor PO intake, wt, labs and skin integrity 3. F/U as high risk in 2-3 days, 11/27-11/28 Expected Outcomes/Goals Expected Outcomes/Goals 1. PO intake to improve, to meet at least 75% of nutritional needs. 2. Wt stability, skin to remain intact, labs to improve
--- NOTE | 2017-12-02 19:41 | Consultation ---
DATE OF CONSULTATION: 12/02/2017 HISTORY OF PRESENT ILLNESS: The patient is a 72-year-old who was admitted with what sounds like a respiratory infection and is now improving to the point that she can be discharged soon, but 2 days ago, blood was noted in the urine in the Anderson catheter. However, when she was admitted, there was no blood. Anderson was placed as she was being diuresed with Lasix. She denies any difficulty urinating while at home and has adequate control, although she uses a bedside commode due to limited ambulation. No history of kidney or bladder stones or urologic surgery. PAST SURGICAL HISTORY: Appendectomy and cholecystectomy. MEDICAL HISTORY: 1. Diabetes. 2. Venous stasis, peripheral vascular disease, and ulcer on the right foot. 3. Anemia. 4. COPD. 5. History of congestive heart failure. ALLERGIES: None. REVIEW OF SYSTEMS: Had cough, congestion, and shortness of breath, which have improved. No chest pain. No abdominal pain, vomiting, or diarrhea. Ulcer on the right foot. Limited ambulation secondary to which she fell once at home. No history of headache or seizures. No vision or hearing loss. PHYSICAL EXAMINATION: GENERAL: On exam, she is awake, alert, oriented, pleasant lady. Daughter at the bedside. VITAL SIGNS: Temperature 98.3, heart rate 80, blood pressure 167/51. HEAD AND NECK: Normocephalic. Trachea central. Pupils equal and reactive. No jaundice. Thyroid and lymph nodes not palpable. Carotid bruit absent. CHEST: Symmetrical. Coarse breath sounds, occasional rales, nor occasional rhonchi. HEART: Sounds normal in sinus rhythm, no murmur. ABDOMEN: Soft, nontender, no organomegaly, mass, or hernia. Anderson catheter draining clear yellow urine. The bleeding seems to have subsided. EXTREMITIES: No edema or ulcer on the right foot. No lymphadenopathy. NEUROLOGIC: Nonfocal. LABORATORY DATA: White count was 11.1 on admission, now it is 14; hemoglobin was 10.3, now 9.0; and platelets adequate. Sodium 131, potassium 3.0, creatinine 1.4, BUN 15, glucose levels 150, 109, and 159. Urine on admission showed 5-10 red cells, but after the Anderson showed large amount of cells indicating some relationship to the catheter. Ultrasound of the kidneys showed no hydronephrosis, stones, or tumors. Borderline bladder wall inflammation. Chest x-ray showed cardiomegaly and no acute changes and more recently, small right pleural effusion and pneumonia of the right lung base. Urine culture showed no growth. IMPRESSION: 1. Hematuria related to the Anderson. Currently, we would recommend removal of the catheter and return to normal status. If further hematuria returns in any form, both microscopic or gross, she should see me or any urologist of her choice to follow this up with a cystoscopy. Until then just hydration and observation would be enough. 2. 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 3. Chronic obstructive pulmonary disease exacerbated by recent infection, probably viral, improving. 4. Hypertension, stable. 5. Anemia, also stable. [facility]# [id number]
[2017-12-02] MEDS: Levofloxacin 250mg/50mL 250 MG/50 ML BAG IV SCH (21:21)
[2017-12-02] MEDS: Insulin Detemir 100 units/mL 10mL Vial SUBQ SCH (21:26)
[2017-12-03] MEDS ORDERED: Albuterol/Ipratropium Neb 3 ML AERS HHN ONE (02:38)
[2017-12-03] MEDS: INSULIN ASPART SLIDING SCALE 100 UNITS/ML UNIT SUBQ SCH ×4 (06:55→21:11)
[2017-12-03 07:05] LABS: ANION GAP 12.1 (7.0-16.0); BUN - UREA NITROGEN 14 mg/dL (7-25); CALCIUM SERUM 8.3 mg/dL (8.6-10.3); CARBON DIOXIDE 38.5 mEq/L (21.0-31.0); CHLORIDE 85 mEq/L (98-107); CREATININE - SERUM 1.2 mg/dL (0.6-1.2); GLUCOSE 192 mg/dL (70-105); SODIUM SERUM 133 mEq/L (136-145)
[2017-12-03 07:11] LABS: POTASSIUM SERUM 2.6 mEq/L (3.5-5.1)
[2017-12-03] MEDS: Albuterol/Ipratropium Neb 3 ML AERS HHN SCH ×4 (08:17→19:00)
[2017-12-03] MEDS: Atorvastatin Calcium 10 MG TAB PO SCH (08:49)
[2017-12-03] MEDS: Potassium Chloride 20 mEq ER Tab PO SCH (08:49)
[2017-12-03] MEDS ORDERED: Potassium Chloride 20 mEq ER Tab PO ONE ×2 (16:23→16:25)
--- NOTE | 2017-12-03 20:48 | Internal Medicine Prog Note ---
Internal Medicine Subjective - Subjective Service Date: 12/03/17 Patient seen and examined:: with staff Patient is:: awake Patient Complaints of:: congestion Per staff patient has:: tolerating meds Internal Medicine Objective - Results Result Diagrams: 12/02/17 04:59 12/03/17 06:30 Recent Labs: Laboratory Last Values WBC 14.0 Th/cmm (4.8-10.8) H 12/02/17 04:59 RBC 3.48 Mil/cmm (3.80-5.20) L 12/02/17 04:59 Hgb 9.0 gm/dL (12-16) L 12/02/17 04:59 Hct 27.5 % (41.0-60) L 12/02/17 04:59 MCV 79.2 fl (81-100) L 12/02/17 04:59 MCH 25.9 pg (27.0-31.0) L 12/02/17 04:59 MCHC Differential 32.7 pg (28.0-36.0) 12/02/17 04:59 RDW 14.9 % (11.5-20.0) 12/02/17 04:59 Plt Count 225 Th/cmm (150-400) 12/02/17 04:59 MPV 7.0 fl 12/02/17 04:59 Neutrophils % 79.6 % (40.0-80.0) 12/02/17 04:59 Lymphocytes % 9.5 % (20.0-50.0) L 12/02/17 04:59 Monocytes % 10.0 % (2.0-10.0) 12/02/17 04:59 Eosinophils % 0.4 % (0.0-5.0) 12/02/17 04:59 Basophils % 0.5 % (0.0-2.0) 12/02/17 04:59 Neutrophils (Manual) 86 % (40-80) H 11/28/17 07:00 Lymphocytes 8 % (20-50) L 11/28/17 07:00 Monocytes 6 % (2-10) 11/28/17 07:00 Platelet Estimate ADEQUATE (NORMAL) 11/28/17 07:00 Microcytosis 1+ 11/28/17 07:00 Specimen Source AERTERIAL 11/29/17 09:40 Sample Site RB 11/29/17 09:40 pH 7.54 (7.35-7.45) H 11/29/17 09:40 pCO2 59.0 mmHg (35.0-45.0) H* 11/29/17 09:40 pO2 60.0 mmHg (80.0-100.0) L 11/29/17 09:40 HCO3 43.0 mEq/L (20.0-26.0) H 11/29/17 09:40 Base Excess 21.0 mEq/L (-3.0-3.0) H 11/29/17 09:40 O2 Saturation 93.0 % (92.0-100.0) 11/29/17 09:40 Fredy Test Y 11/29/17 09:40 Vent Rate N/A 11/29/17 09:40 Inspired O2 30 11/29/17 09:40 Tidal Volume N/A 11/29/17 09:40 PEEP N/A 11/29/17 09:40 Pressure (ins/psv/peep) N/A 11/29/17 09:40 Critical Value O.VARELA 11/29/17 09:40 Sodium 133 mEq/L (136-145) L 12/03/17 06:30 Potassium 2.6 mEq/L (3.5-5.1) L* 12/03/17 06:30 Chloride 85 mEq/L (98-107) L 12/03/17 06:30 Carbon Dioxide 38.5 mEq/L (21.0-31.0) H 12/03/17 06:30 Anion Gap 12.1 (7.0-16.0) 12/03/17 06:30 BUN 14 mg/dL (7-25) 12/03/17 06:30 Creatinine 1.2 mg/dL (0.6-1.2) 12/03/17 06:30 Est GFR ( Amer) TNP 12/03/17 06:30 Est GFR (Non-Af Amer) TNP 12/03/17 06:30 BUN/Creatinine Ratio 11.7 12/03/17 06:30 Glucose 192 mg/dL (70-105) H 12/03/17 06:30 POC Glucose 182 MG/DL (70 - 105) H 12/03/17 06:52 Hemoglobin A1c % 7.5 % (4.0-6.0) H 11/27/17 05:05 Calcium 8.3 mg/dL (8.6-10.3) L 12/03/17 06:30 Magnesium 2.1 mg/dL (1.9-2.7) 12/01/17 05:34 Total Bilirubin 0.4 mg/dL (0.3-1.0) 11/28/17 07:00 AST 14 U/L (13-39) 11/28/17 07:00 ALT 18 U/L (7-52) 11/28/17 07:00 Alkaline Phosphatase 131 U/L (34-104) H 11/28/17 07:00 B-Natriuretic Peptide 2500.0 pg/mL (5.0-100.0) H 12/03/17 06:30 Total Protein 5.7 gm/dL (6.0-8.3) L 11/28/17 07:00 Albumin 3.0 gm/dL (3.7-5.3) L 11/28/17 07:00 Globulin 2.7 gm/dL 11/28/17 07:00 Albumin/Globulin Ratio 1.1 (1.0-1.8) 11/28/17 07:00 Urine Source CATH 11/26/17 12:10 Urine Color YELLOW 11/26/17 12:10 Urine Clarity HAZY (CLEAR) 11/26/17 12:10 Urine pH 6.0 (4.6 - 8.0) 11/26/17 12:10 Ur Specific [place] 1.025 (1.005-1.030) 11/26/17 12:10 Urine Protein 100 mg/dL (NEGATIVE) H 11/26/17 12:10 Urine Glucose (UA) 100 mg/dL (NEGATIVE) H 11/26/17 12:10 Urine Ketones NEGATIVE mg/dL (NEGATIVE) 11/26/17 12:10 Urine Blood LARGE (NEGATIVE) H 11/26/17 12:10 Urine Nitrate NEGATIVE (NEGATIVE) 11/26/17 12:10 Urine Bilirubin SMALL (NEGATIVE) H 11/26/17 12:10 Urine Urobilinogen 0.2 E.U./dL (0.2 - 1.0) 11/26/17 12:10 Ur Leukocyte Esterase NEGATIVE (NEGATIVE) 11/26/17 12:10 Urine RBC >100 /hpf (0-5) H 11/26/17 12:10 Urine WBC 2-5 /hpf (0-5) 11/26/17 12:10 Ur Epithelial Cells FEW /lpf (FEW) 11/26/17 12:10 Urine Bacteria FEW /hpf (NONE SEEN) 11/26/17 12:10 Hyaline Casts 2-5 /lpf (0-2) H 11/24/17 02:50 Influenza A (Rapid) NEG FOR INF A 11/29/17 11:15 Influenza B (Rapid) NEG FOR INF B 11/29/17 11:15 - Physical Exam Vitals and I&O: Vital Signs Temp 98.8 F 12/03/17 17:00 Pulse 121 12/03/17 20:10 Resp 18 12/03/17 20:10 BP 140/64 12/03/17 17:00 Pulse Ox 95 12/03/17 20:10 Intake & Output 12/03/17 12/03/17 12/04/17 06:59 18:59 06:59 Intake Total 550 450 Balance 550 450 Weight (lbs) 233 lb 233 lb Intake: Intake, IV Amount 250 100 Levofloxacin 250mg/50mL 50 250 mg In 50 ml @ 50 mls/ hr IV Q24HR [facility] Rx#: [id number] Piperacillin Sodium/ 200 100 Tazobact 4.5 gm In Sodium Chloride 0.9% 100 ml @ 100 mls/hr IV Q8HR [facility] Rx #:[id number] Oral 300 350 Other: # Voids 2 3 # Bowel Movements 2 1 Stool Characteristics Soft Soft Formed Brown Active Medications: Current Medications Albuterol/Ipratropium (Duoneb Neb) 3 ml HHN Q4HRT [facility] Stop: 01/29/18 18:59 Last Admin: 12/03/17 19:00 Dose: 3 ml Alprazolam (Xanax) 0.25 mg PO Q8HR PRN; Protocol PRN Reason: FOR ANXIETY Stop: 01/25/18 21:53 Last Admin: 11/30/17 21:17 Dose: 0.25 mg Aspirin (Ecotrin) 81 mg PO DAILY [facility] Stop: 01/25/18 08:59 Last Admin: 12/03/17 08:49 Dose: 81 mg Atorvastatin Calcium (Lipitor) 10 mg PO DAILY [facility] Stop: 01/25/18 08:59 Last Admin: 12/03/17 08:49 Dose: 10 mg Carvedilol (Coreg) 25 mg PO BID [facility] Stop: 01/25/18 08:59 Last Admin: 12/03/17 16:56 Dose: 25 mg Dextrose (D50w) 50 ml IVP DAILY PRN PRN Reason: Blood Glucose less than 70 Stop: 01/27/18 08:44 Last Admin: 11/28/17 09:19 Dose: 50 ml Dextrose (Glutose 40%) 18.75 gm PO DAILY PRN PRN Reason: Blood Glucose less than 70 Stop: 01/27/18 08:44 Furosemide (Lasix) 40 mg IVP DAILY [facility] Stop: 02/02/18 08:59 Glucagon (Glucagen) 1 mg IM DAILY PRN PRN Reason: Blood Glucose less than 70 Stop: 01/27/18 08:44 Hydralazine HCl (Apresoline 20 Mg/Ml) 10 mg IV Q4HR PRN PRN Reason: Systolic BP Above 160 Stop: 01/29/18 07:03 Last Admin: 12/02/17 20:42 Dose: 10 mg Levofloxacin (Levaquin Pb) 250 mg in 50 mls @ 50 mls/hr IV Q24HR [facility] Stop: 01/25/18 20:59 Last Infusion: 12/03/17 06:26 Dose: Infused Piperacillin Sod/Tazobactam (Sod 4.5 gm/ Sodium Chloride) 100 mls @ 100 mls/hr IV Q8HR [facility] Stop: 01/26/18 20:59 Last Infusion: 12/03/17 18:56 Dose: Infused Insulin Aspart (Novolog Insulin Sliding Scale) 0 units SUBQ ACHS [facility] PRN Reason: Protocol Stop: 01/24/18 16:29 Last Admin: 12/03/17 16:57 Dose: 2 units Insulin Detemir (Levemir Insulin) 40 units SUBQ HS [facility] Stop: 01/25/18 20:59 Last Admin: 12/02/17 21:26 Dose: Not Given Lisinopril (Zestril) 15 mg PO DAILY [facility] Stop: 01/23/18 11:59 Last Admin: 12/03/17 08:48 Dose: 15 mg Lorazepam (Ativan) 0.5 mg IVP BID PRN; Protocol PRN Reason: Anxiety Stop: 01/25/18 21:17 Last Admin: 12/03/17 01:37 Dose: 0.5 mg Morphine Sulfate (Morphine) 1 mg IVP Q4HR PRN PRN Reason: Pain (Moderate) Stop: 01/23/18 11:51 Last Admin: 11/24/17 22:32 Dose: 1 mg Morphine Sulfate (Morphine) 2 mg IVP Q4HR PRN PRN Reason: Pain (Severe) Stop: 01/23/18 11:51 Last Admin: 11/28/17 11:49 Dose: 2 mg Ondansetron HCl (Zofran) 4 mg IV Q4H PRN PRN Reason: Nausea / Vomiting Stop: 01/23/18 11:56 Pentoxifylline (Trental) 400 mg PO BID [facility] Stop: 01/25/18 08:59 Last Admin: 12/03/17 16:56 Dose: 400 mg Potassium Chloride (Klor-Con) 40 meq PO DAILY [facility] Stop: 02/02/18 08:59 Sitagliptin Phosphate (Januvia) 25 mg PO DAILY [facility] Stop: 01/25/18 08:59 Last Admin: 12/03/17 08:48 Dose: 25 mg Temazepam (Restoril) 15 mg PO HS PRN; Protocol PRN Reason: Insomnia Stop: 01/31/18 01:41 Last Admin: 12/02/17 21:43 Dose: 15 mg Tramadol HCl (Ultram) 50 mg PO Q6HR PRN PRN Reason: Pain (Moderate) Stop: 01/29/18 00:00 Last Admin: 12/01/17 11:13 Dose: 50 mg General: weak, alert HEENT: NC/AT, PERRLA Neck: Supple Lungs: ronchi Cardiovascular: RRR, Normal S1, Normal S2 Abdomen: soft, non-tender, non-distended Neurological: alert - Procedures Procedures: Procedures Procedure Code Date ASSISTANCE WITH RESPIRATORY VENTILATION, 24-96 HRS, CPAP 5H71941 11/24/17 DRAINAGE OF SKIN ABSCESS 95782 07/03/05 OTHER SKIN & SUBQ I D 86.04 07/03/05 POS AIRWAY PRESSURE CPAP 72717 11/24/17 Internal Medicine Assmt/Plan - Assessment Assessment: anemia COPD exacerbation respiratory acidosis - Plan Plan: BIPAP STANDBY CARDIOLOGY CONSULT SUPPLEMENTAL O2 IVABX BRONCHODILATORS CONTINUE CURRENT PLAN OF CARE Nutritional Asmnt/Malnutr-PDOC - Dietary Evaluation Malnutrition Findings (Please click <Entered> for more info): Nutritional Asmnt/Malnutrition Start: 11/25/17 18: 26 Text: Status: Complete Freq: Document 11/25/17 18:26 LCBEE (Rec: 11/25/17 18:33 JAYA [email or web address]) Nutritional Asmnt/Malnutrition Patient General Information Nutritional Screening High Risk Consult Diagnosis anemia, COPD, respiratory acidosis Pertinent Medical Hx/Surgical Hx anemia, DM per family Subjective Information consult received for diebetic foot ulcer, skin integrity/ wound. . pt seen resting in bed at the time of visit, family at bedside. family reported pt got regular diet tray this morning, wanted diabetic diet. Pt only had some oatmeal for breakfast and squash and applesauce for lunch, low appetite d/t disease. Family denied pt having chewing problem with dentures. Per notes, PO intake 25-50% 11/25 Current Diet Order/ Nutrition Support Regular Pertinent Medications novolog, nacl 0.9% Pertinent Labs 11/23 Na 128, K 3.2, Cl 95, BUN 15, Cr 0.8, Glucose 83, ca 8.0 11/25 POC 165-167 Nutritional Hx/Data Height 5 ft 5 in Height (Calculated Centimeters) 165.1 Current Weight (lbs) 170 lb Weight (Calculated Kilograms) 77.1 Weight (Calculated Grams) 96796.7 [place] Body Weight 125 % [place] Body Weight 136 Body Mass Index (BMI) 28.3 Weight Status Overweight GI Symptoms GI Symptoms None Difficult in: None Skin Integrity/Comment: decubitus to right foot Current %PO Poor (25-49%) Estimated Nutritional Goals BEE in Kcals: Using Current wt Calories/Kcals/Kg 25 Kcals Calculated 192 Protein: Using Current wt Protein g/k Protein Calculated 77 Fluid: ml 1924 Nutritional Problem 1. Problem Problem inadquate food intake Etiology poor appetite Signs/Symptoms: PO intake <50% Malnutrition Alert Protein-Calorie Malnutrition N/A Is there a minimum of two criteria No selected? Query Text:Check all the applicable criteria. A minimum of two criteria are recommended for diagnosis of either severe or non-severe malnutrition. Intervention/Recommendation Comments 1. Recommend CCHO diet with Boost Glucose Control BID. Notified RN. 2. Monitor PO intake, wt, labs and skin integrity 3. F/U as high risk in 2-3 days, 11/27-11/28 Expected Outcomes/Goals Expected Outcomes/Goals 1. PO intake to improve, to meet at least 75% of nutritional needs. 2. Wt stability, skin to remain intact, labs to improve
[2017-12-03] MEDS: Insulin Detemir 100 units/mL 10mL Vial SUBQ SCH (21:11)
[2017-12-03] MEDS: Levofloxacin 250mg/50mL 250 MG/50 ML BAG IV SCH (21:12)
--- NOTE | 2017-12-03 21:32 | Progress Notes ---
DATE: UROLOGY PROGRESS NOTE The patient is urinating after the Anderson was removed, but is incontinent as she is unable to get out of bed. No pain, no fever, no nausea, vomiting, tolerating diet. PHYSICAL EXAMINATION: VITAL SIGNS: Blood pressure 132/52, heart rate 96, saturating 100% on room air, temperature 97.8. ABDOMEN: Soft, nontender, no masses, no hernia. EXTREMITIES: No edema. Right foot ulcer unchanged. LUNGS: No rales or rhonchi. LAB: White count 14,000. BUN 14, creatinine 1.2. Sodium 133, potassium 2.6, which was replaced. IMPRESSION: History of hematuria secondary to Anderson. Follow up in the office if hematuria recurs in any form. History of upper respiratory infection and exacerbation of chronic obstructive pulmonary disease, improved enough to probably be able to go home. History of congestive heart failure, stable and diabetic foot ulcer needs further treatment electively. JOB# [id number]
[2017-12-04] MEDS: Albuterol/Ipratropium Neb 3 ML AERS HHN SCH ×7 (00:04→23:23)
[2017-12-04] MEDS: INSULIN ASPART SLIDING SCALE 100 UNITS/ML UNIT SUBQ SCH ×4 (06:41→20:42)
[2017-12-04 09:08] LABS: BASOPHILE ABSOLUTE 0.1 Th/cumm (0-0.2); HEMATOCRIT 27.8 % (41.0-60); HEMOGLOBIN 9.2 gm/dL (12-16); LYMPHOCYTE ABSOLUTE 1.3 Th/cmm (1.5-3.0); MEAN CELL VOLUME 78.4 fl (81-100); MEAN CORPUSCULAR HEMOGLOBIN 25.8 pg (27.0-31.0); MEAN PLATELET VOLUME 7.3 fl; MONOCYTE ABSOLUTE 1.6 Th/cmm (0.3-1.0); NEUTROPHILE ABSOLUTE 17.4 Th/cmm (1.8-8.0); PLATELET COUNT 267 Th/cmm (150-400); RED BLOOD COUNT 3.54 Mil/cmm (3.80-5.20); RED CELL DISTRIBUTION WIDTH 14.7 % (11.5-20.0)
[2017-12-04 09:10] LABS: WHITE BLOOD COUNT 20.4 Th/cmm (4.8-10.8)
[2017-12-04 09:14] LABS: ANION GAP 7.7 (7.0-16.0); BUN - UREA NITROGEN 22 mg/dL (7-25); CALCIUM SERUM 8.2 mg/dL (8.6-10.3); CHLORIDE 87 mEq/L (98-107); CREATININE - SERUM 1.8 mg/dL (0.6-1.2); GLUCOSE 129 mg/dL (70-105); SODIUM SERUM 134 mEq/L (136-145)
[2017-12-04 09:19] LABS: CARBON DIOXIDE 42.1 mEq/L (21.0-31.0)
[2017-12-04 09:20] LABS: POTASSIUM SERUM 2.8 mEq/L (3.5-5.1)
--- NOTE | 2017-12-04 09:24 | Diagnostic Imaging Report ---
Portable chest x-ray HISTORY: Shortness of breath Compared with prior exam of November 30, 2017, there is persistent marked cardiomegaly. Atherosclerotic calcification seen in the aorta. There is a degree of pulmonary vascular redistribution consistent with congestive heart failure. Question minimal right pleural effusion. IMPRESSION: 1. Persistent cardiomegaly along with changes consistent with a degree of congestive heart failure without chante pulmonary edema. Question minimal right pleural effusion.
[2017-12-04 09:31] LABS: BAND NEUTROPHILE 3 % (0-10); LYMPHOCYTE 12 % (20-50); MONOCYTE 7 % (2-10); NEUTROPHILS 78 % (40-80); TOTAL CELLS COUNTED 100
[2017-12-04] MEDS: Potassium Chloride 20 mEq ER Tab PO SCH (10:04)
[2017-12-04] MEDS: Atorvastatin Calcium 10 MG TAB PO SCH (10:09)
[2017-12-04] MEDS ORDERED: Potassium Chloride 60 MEQ, Lidocaine 1% 20mL Vial 25 MG in Sodium Chloride 0.9% 500 ML IV ONE (12:30)
[2017-12-04] MEDS ORDERED: Probiotic Screen MC PRN (15:15)
--- NOTE | 2017-12-04 16:36 | Progress Notes ---
DATE: 12/04/2017 SUBJECTIVE: The patient was seen in her room, lying in the bed. The patient is currently asleep, but easily arousable. Otherwise the patient appears to be in no acute distress. OBJECTIVE: VITAL SIGNS: Temperature 100.2, heart rate 97, blood pressure is 126/63, respirations 20, and 97% on 2 liters via nasal cannula. HEENT: Head is atraumatic and normocephalic. Eyes: Bilateral conjunctivae are clear. Bilateral pupils are equally round and reactive. NECK: Supple. No JVD. CARDIOVASCULAR: S1 and S2, without murmur. PULMONARY: Decreased breath sounds noted with inspiratory wheezing. GASTROINTESTINAL: Soft and nontender without guarding. Positive bowel sounds. MUSCULOSKELETAL: No clubbing, no cyanosis noted. ASSESSMENT: 1. Chronic obstructive pulmonary disease. 2. Anemia. 3. Generalized weakness. 4. Hypertension. 5. Diabetes. 6. Hyperlipidemia. 7. Anxiety. PLAN: We will provide cooling measures for the patient. We will monitor if fever will continue to spike up. We are also going to monitor the patient's nutritional status and we will put the patient on aspiration precautions. Treatment plans were discussed with the patient's nurses. Treatment plans were discussed with Dr. Nayak. JOB# [id number]
--- NOTE | 2017-12-04 17:08 | Infectious Disease Prog Note ---
Infectious Disease Subjective - Review of Systems Service Date: 12/04/17 Subjective: Patient is alert and awake. Not in acute distress. No fever. c/o insomnia. Infectious Disease Objective - Results Result Diagrams: 12/04/17 08:30 12/04/17 08:30 Recent Labs: Laboratory Last Values WBC 20.4 Th/cmm (4.8-10.8) H* 12/04/17 08:30 RBC 3.54 Mil/cmm (3.80-5.20) L 12/04/17 08:30 Hgb 9.2 gm/dL (12-16) L 12/04/17 08:30 Hct 27.8 % (41.0-60) L 12/04/17 08:30 MCV 78.4 fl (81-100) L 12/04/17 08:30 MCH 25.8 pg (27.0-31.0) L 12/04/17 08:30 MCHC Differential 33.0 pg (28.0-36.0) 12/04/17 08:30 RDW 14.7 % (11.5-20.0) 12/04/17 08:30 Plt Count 267 Th/cmm (150-400) 12/04/17 08:30 MPV 7.3 fl 12/04/17 08:30 Neutrophils % 79.6 % (40.0-80.0) 12/02/17 04:59 Band Neutrophils % 3 % (0-10) 12/04/17 08:30 Lymphocytes % 9.5 % (20.0-50.0) L 12/02/17 04:59 Monocytes % 10.0 % (2.0-10.0) 12/02/17 04:59 Eosinophils % 0.4 % (0.0-5.0) 12/02/17 04:59 Basophils % 0.5 % (0.0-2.0) 12/02/17 04:59 Neutrophils (Manual) 78 % (40-80) 12/04/17 08:30 Lymphocytes 12 % (20-50) L 12/04/17 08:30 Monocytes 7 % (2-10) 12/04/17 08:30 Platelet Estimate ADEQUATE (NORMAL) 11/28/17 07:00 Microcytosis 1+ 11/28/17 07:00 Specimen Source AERTERIAL 11/29/17 09:40 Sample Site RB 11/29/17 09:40 pH 7.54 (7.35-7.45) H 11/29/17 09:40 pCO2 59.0 mmHg (35.0-45.0) H* 11/29/17 09:40 pO2 60.0 mmHg (80.0-100.0) L 11/29/17 09:40 HCO3 43.0 mEq/L (20.0-26.0) H 11/29/17 09:40 Base Excess 21.0 mEq/L (-3.0-3.0) H 11/29/17 09:40 O2 Saturation 93.0 % (92.0-100.0) 11/29/17 09:40 Fredy Test Y 11/29/17 09:40 Vent Rate N/A 11/29/17 09:40 Inspired O2 30 11/29/17 09:40 Tidal Volume N/A 11/29/17 09:40 PEEP N/A 11/29/17 09:40 Pressure (ins/psv/peep) N/A 11/29/17 09:40 Critical Value O.VARELA 11/29/17 09:40 Sodium 134 mEq/L (136-145) L 12/04/17 08:30 Potassium 2.8 mEq/L (3.5-5.1) L* 12/04/17 08:30 Chloride 87 mEq/L (98-107) L 12/04/17 08:30 Carbon Dioxide 42.1 mEq/L (21.0-31.0) H 12/04/17 08:30 Anion Gap 7.7 (7.0-16.0) 12/04/17 08:30 BUN 22 mg/dL (7-25) 12/04/17 08:30 Creatinine 1.8 mg/dL (0.6-1.2) H 12/04/17 08:30 Est GFR ( Amer) TNP 12/04/17 08:30 Est GFR (Non-Af Amer) TN 12/04/17 08:30 BUN/Creatinine Ratio 12.2 12/04/17 08:30 Glucose 129 mg/dL (70-105) H 12/04/17 08:30 POC Glucose 182 MG/DL (70 - 105) H 12/03/17 06:52 Hemoglobin A1c % 7.5 % (4.0-6.0) H 11/27/17 05:05 Calcium 8.2 mg/dL (8.6-10.3) L 12/04/17 08:30 Magnesium 2.1 mg/dL (1.9-2.7) 12/01/17 05:34 Total Bilirubin 0.4 mg/dL (0.3-1.0) 11/28/17 07:00 AST 14 U/L (13-39) 11/28/17 07:00 ALT 18 U/L (7-52) 11/28/17 07:00 Alkaline Phosphatase 131 U/L (34-104) H 11/28/17 07:00 B-Natriuretic Peptide 2500.0 pg/mL (5.0-100.0) H 12/03/17 06:30 Total Protein 5.7 gm/dL (6.0-8.3) L 11/28/17 07:00 Albumin 3.0 gm/dL (3.7-5.3) L 11/28/17 07:00 Globulin 2.7 gm/dL 11/28/17 07:00 Albumin/Globulin Ratio 1.1 (1.0-1.8) 11/28/17 07:00 Urine Source CATH 11/26/17 12:10 Urine Color YELLOW 11/26/17 12:10 Urine Clarity HAZY (CLEAR) 11/26/17 12:10 Urine pH 6.0 (4.6 - 8.0) 11/26/17 12:10 Ur Specific [place] 1.025 (1.005-1.030) 11/26/17 12:10 Urine Protein 100 mg/dL (NEGATIVE) H 11/26/17 12:10 Urine Glucose (UA) 100 mg/dL (NEGATIVE) H 11/26/17 12:10 Urine Ketones NEGATIVE mg/dL (NEGATIVE) 11/26/17 12:10 Urine Blood LARGE (NEGATIVE) H 11/26/17 12:10 Urine Nitrate NEGATIVE (NEGATIVE) 11/26/17 12:10 Urine Bilirubin SMALL (NEGATIVE) H 11/26/17 12:10 Urine Urobilinogen 0.2 E.U./dL (0.2 - 1.0) 11/26/17 12:10 Ur Leukocyte Esterase NEGATIVE (NEGATIVE) 11/26/17 12:10 Urine RBC >100 /hpf (0-5) H 11/26/17 12:10 Urine WBC 2-5 /hpf (0-5) 11/26/17 12:10 Ur Epithelial Cells FEW /lpf (FEW) 11/26/17 12:10 Urine Bacteria FEW /hpf (NONE SEEN) 11/26/17 12:10 Hyaline Casts 2-5 /lpf (0-2) H 11/24/17 02:50 Influenza A (Rapid) NEG FOR INF A 11/29/17 11:15 Influenza B (Rapid) NEG FOR INF B 11/29/17 11:15 - Physical Exam Vitals and I&O: Vital Signs Temp 100.2 F 12/04/17 11:15 Pulse 98 12/04/17 16:48 Resp 20 12/04/17 15:41 BP 116/57 12/04/17 16:48 Pulse Ox 96 12/04/17 15:41 Intake & Output 12/03/17 12/04/17 12/04/17 18:59 06:59 18:59 Intake Total 450 490 Output Total 2 Balance 450 488 Weight (lbs) 105.687 kg 95.617 kg Intake: Intake, IV Amount 100 250 Levofloxacin 250mg/50mL 50 250 mg In 50 ml @ 50 mls/ hr IV Q24HR [facility] Rx#: [id number] Piperacillin Sodium/ 100 200 Tazobact 4.5 gm In Sodium Chloride 0.9% 100 ml @ 100 mls/hr IV Q8HR [facility] Rx #:[id number] Oral 350 240 Output: Urine 2 Other: # Voids 3 3 # Bowel Movements 1 Stool Characteristics Soft Active Medications: Current Medications Albuterol/Ipratropium (Duoneb Neb) 3 ml HHN Q4HRT [facility] Stop: 01/29/18 18:59 Last Admin: 12/04/17 15:40 Dose: 3 ml Alprazolam (Xanax) 0.25 mg PO Q8HR PRN; Protocol PRN Reason: Anxiety Stop: 02/02/18 16:12 Aspirin (Ecotrin) 81 mg PO DAILY [facility] Stop: 01/25/18 08:59 Last Admin: 12/04/17 10:09 Dose: 81 mg Atorvastatin Calcium (Lipitor) 10 mg PO DAILY [facility] Stop: 01/25/18 08:59 Last Admin: 12/04/17 10:09 Dose: 10 mg Carvedilol (Coreg) 25 mg PO BID [facility] Stop: 01/25/18 08:59 Last Admin: 12/04/17 16:48 Dose: 25 mg Dextrose (D50w) 50 ml IVP DAILY PRN PRN Reason: Blood Glucose less than 70 Stop: 01/27/18 08:44 Last Admin: 11/28/17 09:19 Dose: 50 ml Dextrose (Glutose 40%) 18.75 gm PO DAILY PRN PRN Reason: Blood Glucose less than 70 Stop: 01/27/18 08:44 Furosemide (Lasix) 40 mg IVP DAILY [facility] Stop: 02/02/18 08:59 Last Admin: 12/04/17 10:10 Dose: Not Given Glucagon (Glucagen) 1 mg IM DAILY PRN PRN Reason: Blood Glucose less than 70 Stop: 01/27/18 08:44 Hydralazine HCl (Apresoline 20 Mg/Ml) 10 mg IV Q4HR PRN PRN Reason: Systolic BP Above 160 Stop: 01/29/18 07:03 Last Admin: 12/02/17 20:42 Dose: 10 mg Piperacillin Sod/Tazobactam (Sod 4.5 gm/ Sodium Chloride) 100 mls @ 100 mls/hr IV Q8HR [facility] Stop: 01/26/18 20:59 Last Admin: 12/04/17 12:28 Dose: 100 mls/hr Potassium Chloride 60 meq/Lidocaine HCl 25 mg/ Sodium Chloride 532.5 mls @ 88 mls/hr IV X1 ONE Stop: 12/04/17 18:33 Last Admin: 12/04/17 14:01 Dose: 88 mls/hr Levofloxacin (Levaquin Pb) 250 mg in 50 mls @ 50 mls/hr IV Q24HR [facility] Stop: 02/02/18 20:59 Insulin Aspart (Novolog Insulin Sliding Scale) 0 units SUBQ ACHS [facility] PRN Reason: Protocol Stop: 01/24/18 16:29 Last Admin: 12/04/17 12:31 Dose: Not Given Insulin Detemir (Levemir Insulin) 40 units SUBQ HS [facility] Stop: 01/25/18 20:59 Last Admin: 12/03/17 21:11 Dose: 40 units Lactobacillus Rhamnosus (Culturelle 15b) 1 each PO DAILY [facility] Stop: 02/03/18 08:59 Lisinopril (Zestril) 15 mg PO DAILY [facility] Stop: 01/23/18 11:59 Last Admin: 12/04/17 10:10 Dose: Not Given Lorazepam (Ativan) 0.5 mg IVP BID PRN; Protocol PRN Reason: Agitation Stop: 02/02/18 16:11 Miscellaneous (Probiotic Screen) 1 ea MC PRN PRN PRN Reason: PROTOCOL Stop: 02/02/18 15:14 Morphine Sulfate (Morphine) 1 mg IVP Q4HR PRN PRN Reason: Pain (Moderate) Stop: 01/23/18 11:51 Last Admin: 11/24/17 22:32 Dose: 1 mg Morphine Sulfate (Morphine) 2 mg IVP Q4HR PRN PRN Reason: Pain (Severe) Stop: 01/23/18 11:51 Last Admin: 11/28/17 11:49 Dose: 2 mg Ondansetron HCl (Zofran) 4 mg IV Q4H PRN PRN Reason: Nausea / Vomiting Stop: 01/23/18 11:56 Pentoxifylline (Trental) 400 mg PO BID [facility] Stop: 01/25/18 08:59 Last Admin: 12/04/17 16:49 Dose: 400 mg Potassium Chloride (Klor-Con) 40 meq PO DAILY [facility] Stop: 02/02/18 08:59 Last Admin: 12/04/17 10:04 Dose: 40 meq Sitagliptin Phosphate (Januvia) 25 mg PO DAILY [facility] Stop: 01/25/18 08:59 Last Admin: 12/04/17 10:08 Dose: 25 mg Temazepam (Restoril) 15 mg PO HS PRN; Protocol PRN Reason: Insomnia Stop: 01/31/18 01:41 Last Admin: 12/02/17 21:43 Dose: 15 mg Tramadol HCl (Ultram) 50 mg PO Q6HR PRN PRN Reason: Pain (Moderate) Stop: 01/29/18 00:00 Last Admin: 12/01/17 11:13 Dose: 50 mg General: no acute distress, well developed, well nourished HEENT: atraumatic, normocephalic, PERRLA, EOMI, moist mucous membrane Neck: supple, no thyromegaly Cardiovascular: S1S2, regular Lungs: clear to auscultation bilaterally, clear to percussion Abdomen: soft, no tender, no distended Extremities: no cyanosis, no clubbing, no edema Neurological: awake, alert, oriented Skin: intact - Procedures Procedures: Procedures Procedure Code Date ASSISTANCE WITH RESPIRATORY VENTILATION, 24-96 HRS, CPAP [id number] 11/24/17 DRAINAGE OF SKIN ABSCESS 37120 07/03/05 OTHER SKIN & SUBQ I D 86.04 07/03/05 POS AIRWAY PRESSURE CPAP 59173 11/24/17 Infectious Disease Assmt/Plan - Problem List Patient Problems: All Active Problems Anemia (Acute) D64.9 Anxiety (Acute) F41.9 COPD exacerbation (Acute) J44.1 Diabetes (Acute) E11.9 General weakness (Acute) HTN (hypertension) (Acute) I10 Hyperlipidemia (Acute) E78.5 - Assessment Assessment: 1. Pneumonia . 2. altered mental status, likey 2/2 CO2 Narcosis. cannot rule out any other etiologies. 3. CHF 4. brice cardia ( borderline). 5. Right leg wound, suspect venous stasis ulcer and pyoderma gangrenosum. 6. Insominia - Plan Plan: Continue Zosyn and Levaquin. continue. restoril Nutritional Asmnt/Malnutr-PDOC - Dietary Evaluation Malnutrition Findings (Please click <Entered> for more info): Nutritional Asmnt/Malnutrition Start: 11/25/17 18: 26 Text: Status: Complete Freq: Document 11/25/17 18:26 LCHENG (Rec: 11/25/17 18:33 LCHENG [email or web address]) Nutritional Asmnt/Malnutrition Patient General Information Nutritional Screening High Risk Consult Diagnosis anemia, COPD, respiratory acidosis Pertinent Medical Hx/Surgical Hx anemia, DM per family Subjective Information consult received for diebetic foot ulcer, skin integrity/ wound. . pt seen resting in bed at the time of visit, family at bedside. family reported pt got regular diet tray this morning, wanted diabetic diet. Pt only had some oatmeal for breakfast and squash and applesauce for lunch, low appetite d/t disease. Family denied pt having chewing problem with dentures. Per notes, PO intake 25-50% / Current Diet Order/ Nutrition Support Regular Pertinent Medications novolog, nacl 0.9% Pertinent Labs / Na 128, K 3.2, Cl 95, BUN 15, Cr 0.8, Glucose 83, ca 8.0 11/25 POC 165-167 Nutritional Hx/Data Height 1.65 m Height (Calculated Centimeters) 165.1 Current Weight (lbs) 77.111 kg Weight (Calculated Kilograms) 77.1 Weight (Calculated Grams) 18913.7 [place] Body Weight 125 % [place] Body Weight 136 Body Mass Index (BMI) 28.3 Weight Status Overweight GI Symptoms GI Symptoms None Difficult in: None Skin Integrity/Comment: decubitus to right foot Current %PO Poor (25-49%) Estimated Nutritional Goals BEE in Kcals: Using Current wt Calories/Kcals/Kg 25 Kcals Calculated 1924 Protein: Using Current wt Protein g/k Protein Calculated 77 Fluid: ml 1924 Nutritional Problem 1. Problem Problem inadquate food intake Etiology poor appetite Signs/Symptoms: PO intake <50% Malnutrition Alert Protein-Calorie Malnutrition N/A Is there a minimum of two criteria No selected? Query Text:Check all the applicable criteria. A minimum of two criteria are recommended for diagnosis of either severe or non-severe malnutrition. Intervention/Recommendation Comments 1. Recommend CCHO diet with Boost Glucose Control BID. Notified RN. 2. Monitor PO intake, wt, labs and skin integrity 3. F/U as high risk in 2-3 days, 11/27-11/28 Expected Outcomes/Goals Expected Outcomes/Goals 1. PO intake to improve, to meet at least 75% of nutritional needs. 2. Wt stability, skin to remain intact, labs to improve
[2017-12-04] MEDS: Levofloxacin 250mg/50mL 250 MG/50 ML BAG IV SCH (20:17)
[2017-12-04] MEDS: Insulin Detemir 100 units/mL 10mL Vial SUBQ SCH (21:00)
[2017-12-05] MEDS: Albuterol/Ipratropium Neb 3 ML AERS HHN SCH ×6 (03:20→23:04)
[2017-12-05 06:19] LABS: % BASOPHILS 0.4 % (0.0-2.0); % EOSINOPHILS 1.3 % (0.0-5.0); % LYMPHOCYTES 10.9 % (20.0-50.0); % MONOCYTES 8.1 % (2.0-10.0); % NEUTROPHILS 79.3 % (40.0-80.0); BASOPHILE ABSOLUTE 0.1 Th/cumm (0-0.2); EOSINOPHILE ABSOLUTE 0.2 Th/cmm (0.1-0.4); HEMATOCRIT 28.2 % (41.0-60); HEMOGLOBIN 9.1 gm/dL (12-16); LYMPHOCYTE ABSOLUTE 1.6 Th/cmm (1.5-3.0); MEAN CELL VOLUME 78.6 fl (81-100); MEAN CORPUSCULAR HEMOGLOBIN 25.2 pg (27.0-31.0); MEAN CORPUSCULAR HGB CONC 32.1 pg (28.0-36.0); MEAN PLATELET VOLUME 7.8 fl; MONOCYTE ABSOLUTE 1.2 Th/cmm (0.3-1.0); NEUTROPHILE ABSOLUTE 11.4 Th/cmm (1.8-8.0); PLATELET COUNT 264 Th/cmm (150-400); RED BLOOD COUNT 3.59 Mil/cmm (3.80-5.20); RED CELL DISTRIBUTION WIDTH 14.7 % (11.5-20.0)
[2017-12-05 06:21] LABS: WHITE BLOOD COUNT 14.5 Th/cmm (4.8-10.8)
[2017-12-05] MEDS: INSULIN ASPART SLIDING SCALE 100 UNITS/ML UNIT SUBQ SCH ×4 (06:48→21:25)
[2017-12-05 06:54] LABS: ALB/GLOB RATIO 0.8 (1.0-1.8); ALBUMIN 2.6 gm/dL (3.7-5.3); ALKALINE PHOSPHATASE 80 U/L (34-104); ANION GAP 10.4 (7.0-16.0); BILIRUBIN,TOTAL 0.8 mg/dL (0.3-1.0); BUN - UREA NITROGEN 31 mg/dL (7-25); CALCIUM SERUM 8.5 mg/dL (8.6-10.3); CARBON DIOXIDE 38.3 mEq/L (21.0-31.0); CHLORIDE 89 mEq/L (98-107); CREATININE - SERUM 2.5 mg/dL (0.6-1.2); GLUCOSE 175 mg/dL (70-105); POTASSIUM SERUM 3.7 mEq/L (3.5-5.1); SGOT 29 U/L (13-39); SGPT/ALT 17 U/L (7-52); SODIUM SERUM 134 mEq/L (136-145)
[2017-12-05] MEDS: Morphine Sulfate 2 mg/mL 1mL Syr IVP PRN (08:47)
[2017-12-05] MEDS: Lactobacillus Rhamnosus GG 15 Billion CFU CAP.SPRINK PO SCH (09:05)
[2017-12-05] MEDS: Atorvastatin Calcium 10 MG TAB PO SCH (09:06)
[2017-12-05] MEDS: Potassium Chloride 20 mEq ER Tab PO SCH (09:06)
--- NOTE | 2017-12-05 11:14 | General Progress Note ---
Subjective - Review of Systems Events since last encounter: patient awake alert in no distress c/o trouble sleeping Objective - Results Result Diagrams: 12/05/17 05:46 12/05/17 05:46 Recent Labs: Laboratory Last Values WBC 14.5 Th/cmm (4.8-10.8) H D 12/05/17 05:46 RBC 3.59 Mil/cmm (3.80-5.20) L 12/05/17 05:46 Hgb 9.1 gm/dL (12-16) L 12/05/17 05:46 Hct 28.2 % (41.0-60) L 12/05/17 05:46 MCV 78.6 fl (81-100) L 12/05/17 05:46 MCH 25.2 pg (27.0-31.0) L 12/05/17 05:46 MCHC Differential 32.1 pg (28.0-36.0) 12/05/17 05:46 RDW 14.7 % (11.5-20.0) 12/05/17 05:46 Plt Count 264 Th/cmm (150-400) 12/05/17 05:46 MPV 7.8 fl 12/05/17 05:46 Neutrophils % 79.3 % (40.0-80.0) 12/05/17 05:46 Band Neutrophils % 3 % (0-10) 12/04/17 08:30 Lymphocytes % 10.9 % (20.0-50.0) L 12/05/17 05:46 Monocytes % 8.1 % (2.0-10.0) 12/05/17 05:46 Eosinophils % 1.3 % (0.0-5.0) 12/05/17 05:46 Basophils % 0.4 % (0.0-2.0) 12/05/17 05:46 Neutrophils (Manual) 78 % (40-80) 12/04/17 08:30 Lymphocytes 12 % (20-50) L 12/04/17 08:30 Monocytes 7 % (2-10) 12/04/17 08:30 Platelet Estimate ADEQUATE (NORMAL) 11/28/17 07:00 Microcytosis 1+ 11/28/17 07:00 Specimen Source AERTERIAL 11/29/17 09:40 Sample Site RB 11/29/17 09:40 pH 7.54 (7.35-7.45) H 11/29/17 09:40 pCO2 59.0 mmHg (35.0-45.0) H* 11/29/17 09:40 pO2 60.0 mmHg (80.0-100.0) L 11/29/17 09:40 HCO3 43.0 mEq/L (20.0-26.0) H 11/29/17 09:40 Base Excess 21.0 mEq/L (-3.0-3.0) H 11/29/17 09:40 O2 Saturation 93.0 % (92.0-100.0) 11/29/17 09:40 Fredy Test Y 11/29/17 09:40 Vent Rate N/A 11/29/17 09:40 Inspired O2 30 11/29/17 09:40 Tidal Volume N/A 11/29/17 09:40 PEEP N/A 11/29/17 09:40 Pressure (ins/psv/peep) N/A 11/29/17 09:40 Critical Value O.VARELA 11/29/17 09:40 Sodium 134 mEq/L (136-145) L 12/05/17 05:46 Potassium 3.7 mEq/L (3.5-5.1) 12/05/17 05:46 Chloride 89 mEq/L (98-107) L 12/05/17 05:46 Carbon Dioxide 38.3 mEq/L (21.0-31.0) H 12/05/17 05:46 Anion Gap 10.4 (7.0-16.0) 12/05/17 05:46 BUN 31 mg/dL (7-25) H 12/05/17 05:46 Creatinine 2.5 mg/dL (0.6-1.2) H 12/05/17 05:46 Est GFR ( Amer) TNP 12/05/17 05:46 Est GFR (Non-Af Amer) TNP 12/05/17 05:46 BUN/Creatinine Ratio 12.4 12/05/17 05:46 Glucose 175 mg/dL (70-105) H 12/05/17 05:46 POC Glucose 182 MG/DL (70 - 105) H 12/03/17 06:52 Hemoglobin A1c % 7.5 % (4.0-6.0) H 11/27/17 05:05 Calcium 8.5 mg/dL (8.6-10.3) L 12/05/17 05:46 Magnesium 2.1 mg/dL (1.9-2.7) 12/01/17 05:34 Total Bilirubin 0.8 mg/dL (0.3-1.0) 12/05/17 05:46 AST 29 U/L (13-39) 12/05/17 05:46 ALT 17 U/L (7-52) 12/05/17 05:46 Alkaline Phosphatase 80 U/L (34-104) 12/05/17 05:46 B-Natriuretic Peptide 2500.0 pg/mL (5.0-100.0) H 12/03/17 06:30 Total Protein 6.0 gm/dL (6.0-8.3) 12/05/17 05:46 Albumin 2.6 gm/dL (3.7-5.3) L 12/05/17 05:46 Globulin 3.4 gm/dL 12/05/17 05:46 Albumin/Globulin Ratio 0.8 (1.0-1.8) L 12/05/17 05:46 Urine Source CATH 11/26/17 12:10 Urine Color YELLOW 11/26/17 12:10 Urine Clarity HAZY (CLEAR) 11/26/17 12:10 Urine pH 6.0 (4.6 - 8.0) 11/26/17 12:10 Ur Specific [place] 1.025 (1.005-1.030) 11/26/17 12:10 Urine Protein 100 mg/dL (NEGATIVE) H 11/26/17 12:10 Urine Glucose (UA) 100 mg/dL (NEGATIVE) H 11/26/17 12:10 Urine Ketones NEGATIVE mg/dL (NEGATIVE) 11/26/17 12:10 Urine Blood LARGE (NEGATIVE) H 11/26/17 12:10 Urine Nitrate NEGATIVE (NEGATIVE) 11/26/17 12:10 Urine Bilirubin SMALL (NEGATIVE) H 11/26/17 12:10 Urine Urobilinogen 0.2 E.U./dL (0.2 - 1.0) 11/26/17 12:10 Ur Leukocyte Esterase NEGATIVE (NEGATIVE) 11/26/17 12:10 Urine RBC >100 /hpf (0-5) H 11/26/17 12:10 Urine WBC 2-5 /hpf (0-5) 11/26/17 12:10 Ur Epithelial Cells FEW /lpf (FEW) 11/26/17 12:10 Urine Bacteria FEW /hpf (NONE SEEN) 11/26/17 12:10 Hyaline Casts 2-5 /lpf (0-2) H 11/24/17 02:50 Influenza A (Rapid) NEG FOR INF A 11/29/17 11:15 Influenza B (Rapid) NEG FOR INF B 11/29/17 11:15 - Physical Exam Vitals and I&O: Vital Signs Temp 97.2 F 12/05/17 10:37 Pulse 100 12/05/17 10:42 Resp 18 12/05/17 10:37 BP 100/54 12/05/17 10:42 Pulse Ox 97 12/05/17 10:37 Intake & Output 12/04/17 12/05/17 12/05/17 18:59 06:59 18:59 Intake Total 350 250 Balance 350 250 Weight (lbs) 95.254 kg 94.801 kg Intake: Intake, IV Amount 100 150 Levofloxacin 250mg/50mL 50 250 mg In 50 ml @ 50 mls/ hr IV Q24HR [facility] Rx#: [id number] Piperacillin Sodium/ 100 100 Tazobact 4.5 gm In Sodium Chloride 0.9% 100 ml @ 100 mls/hr IV Q8HR [facility] Rx #:[id number] Oral 250 100 Other: # Voids 3 2 # Bowel Movements 2 Active Medications: Current Medications Albuterol/Ipratropium (Duoneb Neb) 3 ml HHN Q4HRT [facility] Stop: 01/29/18 18:59 Last Admin: 12/05/17 11:03 Dose: 3 ml Alprazolam (Xanax) 0.25 mg PO Q8HR PRN; Protocol PRN Reason: Anxiety Stop: 02/02/18 16:12 Aspirin (Ecotrin) 81 mg PO DAILY [facility] Stop: 01/25/18 08:59 Last Admin: 12/05/17 09:07 Dose: 81 mg Atorvastatin Calcium (Lipitor) 10 mg PO DAILY [facility] Stop: 01/25/18 08:59 Last Admin: 12/05/17 09:06 Dose: 10 mg Carvedilol (Coreg) 25 mg PO BID [facility] Stop: 01/25/18 08:59 Last Admin: 12/05/17 09:06 Dose: 25 mg Dextrose (D50w) 50 ml IVP DAILY PRN PRN Reason: Blood Glucose less than 70 Stop: 01/27/18 08:44 Last Admin: 11/28/17 09:19 Dose: 50 ml Dextrose (Glutose 40%) 18.75 gm PO DAILY PRN PRN Reason: Blood Glucose less than 70 Stop: 01/27/18 08:44 Furosemide (Lasix) 40 mg IVP DAILY [facility] Stop: 02/02/18 08:59 Last Admin: 12/04/17 10:10 Dose: Not Given Glucagon (Glucagen) 1 mg IM DAILY PRN PRN Reason: Blood Glucose less than 70 Stop: 01/27/18 08:44 Hydralazine HCl (Apresoline 20 Mg/Ml) 10 mg IV Q4HR PRN PRN Reason: Systolic BP Above 160 Stop: 01/29/18 07:03 Last Admin: 12/02/17 20:42 Dose: 10 mg Piperacillin Sod/Tazobactam (Sod 4.5 gm/ Sodium Chloride) 100 mls @ 100 mls/hr IV Q8HR [facility] Stop: 01/26/18 20:59 Last Admin: 12/05/17 05:11 Dose: 100 mls/hr Levofloxacin (Levaquin Pb) 250 mg in 50 mls @ 50 mls/hr IV Q24HR [facility] Stop: 02/02/18 20:59 Last Infusion: 12/04/17 21:17 Dose: Infused Insulin Aspart (Novolog Insulin Sliding Scale) 0 units SUBQ ACHS [facility] PRN Reason: Protocol Stop: 01/24/18 16:29 Last Admin: 12/05/17 06:48 Dose: 2 units Insulin Detemir (Levemir Insulin) 40 units SUBQ HS [facility] Stop: 01/25/18 20:59 Last Admin: 12/04/17 21:00 Dose: Not Given Lactobacillus Rhamnosus (Culturelle 15b) 1 each PO DAILY [facility] Stop: 02/03/18 08:59 Last Admin: 12/05/17 09:05 Dose: 1 each Lisinopril (Zestril) 15 mg PO DAILY [facility] Stop: 01/23/18 11:59 Last Admin: 12/05/17 10:42 Dose: Not Given Lorazepam (Ativan) 0.5 mg IVP BID PRN; Protocol PRN Reason: Agitation Stop: 02/02/18 16:11 Miscellaneous (Probiotic Screen) 1 ea MC PRN PRN PRN Reason: PROTOCOL Stop: 02/02/18 15:14 Morphine Sulfate (Morphine) 1 mg IVP Q4HR PRN PRN Reason: Pain (Moderate) Stop: 01/23/18 11:51 Last Admin: 11/24/17 22:32 Dose: 1 mg Morphine Sulfate (Morphine) 2 mg IVP Q4HR PRN PRN Reason: Pain (Severe) Stop: 01/23/18 11:51 Last Admin: 12/05/17 08:47 Dose: 2 mg Ondansetron HCl (Zofran) 4 mg IV Q4H PRN PRN Reason: Nausea / Vomiting Stop: 01/23/18 11:56 Pentoxifylline (Trental) 400 mg PO BID [facility] Stop: 01/25/18 08:59 Last Admin: 12/05/17 09:06 Dose: 400 mg Potassium Chloride (Klor-Con) 40 meq PO DAILY [facility] Stop: 02/02/18 08:59 Last Admin: 12/05/17 09:06 Dose: 40 meq Sitagliptin Phosphate (Januvia) 25 mg PO DAILY [facility] Stop: 01/25/18 08:59 Last Admin: 12/05/17 09:05 Dose: 25 mg Temazepam (Restoril) 15 mg PO HS PRN; Protocol PRN Reason: Insomnia Stop: 01/31/18 01:41 Last Admin: 12/02/17 21:43 Dose: 15 mg Tramadol HCl (Ultram) 50 mg PO Q6HR PRN PRN Reason: Pain (Moderate) Stop: 01/29/18 00:00 Last Admin: 12/05/17 02:38 Dose: 50 mg General: No acute distress HEENT: Atraumatic Neck: Supple Cardiovascular: Regular rate - Procedures Procedures: Procedures Procedure Code Date ASSISTANCE WITH RESPIRATORY VENTILATION, 24-96 HRS, CPAP [id number] 11/24/17 DRAINAGE OF SKIN ABSCESS 65510 07/03/05 OTHER SKIN & SUBQ I D 86.04 07/03/05 POS AIRWAY PRESSURE CPAP 73759 11/24/17 Assessment/Plan - Problem List Patient Problems: All Active Problems Anemia (Acute) D64.9 Anxiety (Acute) F41.9 COPD exacerbation (Acute) J44.1 Diabetes (Acute) E11.9 General weakness (Acute) HTN (hypertension) (Acute) I10 Hyperlipidemia (Acute) E78.5 - Plan Plan: cpm Nutritional Asmnt/Malnutr-PDOC - Dietary Evaluation Malnutrition Findings (Please click <Entered> for more info): Nutritional Asmnt/Malnutrition Start: 11/25/17 18: 26 Text: Status: Complete Freq: Document 11/25/17 18:26 [facility] (Rec: 11/25/17 18:[email or web address] Nutritional Asmnt/Malnutrition Patient General Information Nutritional Screening High Risk Consult Diagnosis anemia, COPD, respiratory acidosis Pertinent Medical Hx/Surgical Hx anemia, DM per family Subjective Information consult received for diebetic foot ulcer, skin integrity/ wound. . pt seen resting in bed at the time of visit, family at bedside. family reported pt got regular diet tray this morning, wanted diabetic diet. Pt only had some oatmeal for breakfast and squash and applesauce for lunch, low appetite d/t disease. Family denied pt having chewing problem with dentures. Per notes, PO intake 25-50% 1/ Current Diet Order/ Nutrition Support Regular Pertinent Medications novolog, nacl 0.9% Pertinent Labs 1/2 Na 128, K 3.2, Cl 95, BUN 15, Cr 0.8, Glucose 83, ca 8.0 1/4 POC 165-167 Nutritional Hx/Data Height 1.65 m Height (Calculated Centimeters) 165.1 Current Weight (lbs) 77.111 kg Weight (Calculated Kilograms) 77.1 Weight (Calculated Grams) 02590.7 Emmett Body Weight 125 % Emmett Body Weight 136 Body Mass Index (BMI) 28.3 Weight Status Overweight GI Symptoms GI Symptoms None Difficult in: None Skin Integrity/Comment: decubitus to right foot Current %PO Poor (25-49%) Estimated Nutritional Goals BEE in Kcals: Using Current wt Calories/Kcals/Kg 25 Kcals Calculated 1924 Protein: Using Current wt Protein g/k Protein Calculated 77 Fluid: ml 1924 Nutritional Problem 1. Problem Problem inadquate food intake Etiology poor appetite Signs/Symptoms: PO intake <50% Malnutrition Alert Protein-Calorie Malnutrition N/A Is there a minimum of two criteria No selected? Query Text:Check all the applicable criteria. A minimum of two criteria are recommended for diagnosis of either severe or non-severe malnutrition. Intervention/Recommendation Comments 1. Recommend CCHO diet with Boost Glucose Control BID. Notified RN. 2. Monitor PO intake, wt, labs and skin integrity 3. F/U as high risk in 2-3 days, 11/27-11/28 Expected Outcomes/Goals Expected Outcomes/Goals 1. PO intake to improve, to meet at least 75% of nutritional needs. 2. Wt stability, skin to remain intact, labs to improve
--- NOTE | 2017-12-05 20:04 | Progress Notes ---
DATE: UROLOGY PROGRESS NOTE The patient offers no complaints, is awaiting half-way placement long-term care. Meanwhile, she remains urinary orona incontinent without pain, dysuria or hematuria. She eats between 50-100% of her meals. PHYSICAL EXAMINATION: VITAL SIGNS: Her temperature is 96.7, heart rate 105, blood pressure 103/55. Sinus rhythm. ABDOMEN: Soft, nondistended. Flank is nontender. Bladder not palpable. EXTREMITIES: Trace edema. CARDIOVASCULAR: Heart sounds, no murmur. LABORATORY DATA: White count 14.5, improved from yesterday. Hemoglobin 9.1, no bands. BUN 31, creatinine 2.5, which is double of what she used to have and indicates possibly urinary retention or infection. Sugars 168, 175, less than optimal control at this time. IMPRESSION: 1. Hematuria secondary to Anderson, which has now resolved after the catheter was removed. 2. Increase in creatinine, rule out urinary retention. We will do in and out catheterization once and then ultrasound tomorrow. 3. History of diabetes, fair control. 4. Respiratory tract infection and COPD, improved and stable. 5. Lastly, congestive heart failure, also stable. JOB# [id number]
[2017-12-05] MEDS: Levofloxacin 250mg/50mL 250 MG/50 ML BAG IV SCH (21:10)
[2017-12-05] MEDS: Insulin Detemir 100 units/mL 10mL Vial SUBQ SCH (21:25)
[2017-12-05] MEDS ORDERED: Diltiazem 5 mg/mL 5mL Vial IVP PRN (22:32)
--- NOTE | 2017-12-06 03:23 | Infectious Disease Prog Note ---
Infectious Disease Subjective - Review of Systems Service Date: 12/05/17 Subjective: Patient is alert and awake. Not in acute distress. No fever. c/o insomnia. Patient had increased creatinine, bladder scan was performed, 800ml of urine noted. Anderson placed in and urine came out. Infectious Disease Objective - Results Result Diagrams: 12/05/17 05:46 12/05/17 05:46 Recent Labs: Laboratory Last Values WBC 14.5 Th/cmm (4.8-10.8) H D 12/05/17 05:46 RBC 3.59 Mil/cmm (3.80-5.20) L 12/05/17 05:46 Hgb 9.1 gm/dL (12-16) L 12/05/17 05:46 Hct 28.2 % (41.0-60) L 12/05/17 05:46 MCV 78.6 fl (81-100) L 12/05/17 05:46 MCH 25.2 pg (27.0-31.0) L 12/05/17 05:46 MCHC Differential 32.1 pg (28.0-36.0) 12/05/17 05:46 RDW 14.7 % (11.5-20.0) 12/05/17 05:46 Plt Count 264 Th/cmm (150-400) 12/05/17 05:46 MPV 7.8 fl 12/05/17 05:46 Neutrophils % 79.3 % (40.0-80.0) 12/05/17 05:46 Band Neutrophils % 3 % (0-10) 12/04/17 08:30 Lymphocytes % 10.9 % (20.0-50.0) L 12/05/17 05:46 Monocytes % 8.1 % (2.0-10.0) 12/05/17 05:46 Eosinophils % 1.3 % (0.0-5.0) 12/05/17 05:46 Basophils % 0.4 % (0.0-2.0) 12/05/17 05:46 Neutrophils (Manual) 78 % (40-80) 12/04/17 08:30 Lymphocytes 12 % (20-50) L 12/04/17 08:30 Monocytes 7 % (2-10) 12/04/17 08:30 Platelet Estimate ADEQUATE (NORMAL) 11/28/17 07:00 Microcytosis 1+ 11/28/17 07:00 Specimen Source AERTERIAL 11/29/17 09:40 Sample Site RB 11/29/17 09:40 pH 7.54 (7.35-7.45) H 11/29/17 09:40 pCO2 59.0 mmHg (35.0-45.0) H* 11/29/17 09:40 pO2 60.0 mmHg (80.0-100.0) L 11/29/17 09:40 HCO3 43.0 mEq/L (20.0-26.0) H 11/29/17 09:40 Base Excess 21.0 mEq/L (-3.0-3.0) H 11/29/17 09:40 O2 Saturation 93.0 % (92.0-100.0) 11/29/17 09:40 Fredy Test Y 11/29/17 09:40 Vent Rate N/A 11/29/17 09:40 Inspired O2 30 11/29/17 09:40 Tidal Volume N/A 11/29/17 09:40 PEEP N/A 11/29/17 09:40 Pressure (ins/psv/peep) N/A 11/29/17 09:40 Critical Value O.VARELA 11/29/17 09:40 Sodium 134 mEq/L (136-145) L 12/05/17 05:46 Potassium 3.7 mEq/L (3.5-5.1) 12/05/17 05:46 Chloride 89 mEq/L (98-107) L 12/05/17 05:46 Carbon Dioxide 38.3 mEq/L (21.0-31.0) H 12/05/17 05:46 Anion Gap 10.4 (7.0-16.0) 12/05/17 05:46 BUN 31 mg/dL (7-25) H 12/05/17 05:46 Creatinine 2.5 mg/dL (0.6-1.2) H 12/05/17 05:46 Est GFR ( Amer) TNP 12/05/17 05:46 Est GFR (Non-Af Amer) TNP 12/05/17 05:46 BUN/Creatinine Ratio 12.4 12/05/17 05:46 Glucose 175 mg/dL (70-105) H 12/05/17 05:46 POC Glucose 162 MG/DL (70 - 105) H 12/05/17 21:15 Hemoglobin A1c % 7.5 % (4.0-6.0) H 11/27/17 05:05 Calcium 8.5 mg/dL (8.6-10.3) L 12/05/17 05:46 Magnesium 2.1 mg/dL (1.9-2.7) 12/01/17 05:34 Total Bilirubin 0.8 mg/dL (0.3-1.0) 12/05/17 05:46 AST 29 U/L (13-39) 12/05/17 05:46 ALT 17 U/L (7-52) 12/05/17 05:46 Alkaline Phosphatase 80 U/L (34-104) 12/05/17 05:46 Troponin I 0.80 ng/mL (0.01-0.05) H* 12/05/17 23:26 B-Natriuretic Peptide 2500.0 pg/mL (5.0-100.0) H 12/03/17 06:30 Total Protein 6.0 gm/dL (6.0-8.3) 12/05/17 05:46 Albumin 2.6 gm/dL (3.7-5.3) L 12/05/17 05:46 Globulin 3.4 gm/dL 12/05/17 05:46 Albumin/Globulin Ratio 0.8 (1.0-1.8) L 12/05/17 05:46 Urine Source CATH 11/26/17 12:10 Urine Color YELLOW 11/26/17 12:10 Urine Clarity HAZY (CLEAR) 11/26/17 12:10 Urine pH 6.0 (4.6 - 8.0) 11/26/17 12:10 Ur Specific [place] 1.025 (1.005-1.030) 11/26/17 12:10 Urine Protein 100 mg/dL (NEGATIVE) H 11/26/17 12:10 Urine Glucose (UA) 100 mg/dL (NEGATIVE) H 11/26/17 12:10 Urine Ketones NEGATIVE mg/dL (NEGATIVE) 11/26/17 12:10 Urine Blood LARGE (NEGATIVE) H 11/26/17 12:10 Urine Nitrate NEGATIVE (NEGATIVE) 11/26/17 12:10 Urine Bilirubin SMALL (NEGATIVE) H 11/26/17 12:10 Urine Urobilinogen 0.2 E.U./dL (0.2 - 1.0) 11/26/17 12:10 Ur Leukocyte Esterase NEGATIVE (NEGATIVE) 11/26/17 12:10 Urine RBC >100 /hpf (0-5) H 11/26/17 12:10 Urine WBC 2-5 /hpf (0-5) 11/26/17 12:10 Ur Epithelial Cells FEW /lpf (FEW) 11/26/17 12:10 Urine Bacteria FEW /hpf (NONE SEEN) 11/26/17 12:10 Hyaline Casts 2-5 /lpf (0-2) H 11/24/17 02:50 Influenza A (Rapid) NEG FOR INF A 11/29/17 11:15 Influenza B (Rapid) NEG FOR INF B 11/29/17 11:15 - Physical Exam Vitals and I&O: Vital Signs Temp 97 F 12/06/17 00:00 Pulse 87 12/06/17 00:00 Resp 22 12/06/17 00:00 BP 105/60 12/06/17 00:00 Pulse Ox 100 12/06/17 00:00 Intake & Output 12/05/17 12/05/17 12/06/17 06:59 18:59 06:59 Intake Total 350 600 Balance 350 600 Weight (lbs) 94.801 kg 94.801 kg Intake: Intake, IV Amount 250 100 Levofloxacin 250mg/50mL 50 250 mg In 50 ml @ 50 mls/ hr IV Q24HR [facility] Rx#: [id number] Piperacillin Sodium/ 200 100 Tazobact 4.5 gm In Sodium Chloride 0.9% 100 ml @ 100 mls/hr IV Q8HR [facility] Rx #:[id number] Oral 100 500 Other: # Voids 2 3 # Bowel Movements 1 Stool Characteristics Soft Formed Active Medications: Current Medications Albuterol/Ipratropium (Duoneb Neb) 3 ml HHN Q4HRT [facility] Stop: 01/29/18 18:59 Last Admin: 12/05/17 23:04 Dose: Not Given Alprazolam (Xanax) 0.25 mg PO Q8HR PRN; Protocol PRN Reason: Anxiety Stop: 02/02/18 16:12 Aspirin (Ecotrin) 81 mg PO DAILY [facility] Stop: 01/25/18 08:59 Last Admin: 12/05/17 09:07 Dose: 81 mg Atorvastatin Calcium (Lipitor) 10 mg PO DAILY [facility] Stop: 01/25/18 08:59 Last Admin: 12/05/17 09:06 Dose: 10 mg Carvedilol (Coreg) 25 mg PO BID [facility] Stop: 01/25/18 08:59 Last Admin: 12/05/17 16:56 Dose: 25 mg Dextrose (D50w) 50 ml IVP DAILY PRN PRN Reason: Blood Glucose less than 70 Stop: 01/27/18 08:44 Last Admin: 11/28/17 09:19 Dose: 50 ml Dextrose (Glutose 40%) 18.75 gm PO DAILY PRN PRN Reason: Blood Glucose less than 70 Stop: 01/27/18 08:44 Diltiazem HCl (Cardizem) 5 mg IVP Q4HR PRN PRN Reason: HR>120 Stop: 02/03/18 22:31 Furosemide (Lasix) 40 mg IVP DAILY [facility] Stop: 02/02/18 08:59 Last Admin: 12/05/17 12:16 Dose: Not Given Glucagon (Glucagen) 1 mg IM DAILY PRN PRN Reason: Blood Glucose less than 70 Stop: 01/27/18 08:44 Hydralazine HCl (Apresoline 20 Mg/Ml) 10 mg IV Q4HR PRN PRN Reason: Systolic BP Above 160 Stop: 01/29/18 07:03 Last Admin: 12/02/17 20:42 Dose: 10 mg Levofloxacin (Levaquin Pb) 250 mg in 50 mls @ 50 mls/hr IV Q24HR [facility] Stop: 02/02/18 20:59 Last Admin: 12/05/17 21:10 Dose: 50 mls/hr Insulin Aspart (Novolog Insulin Sliding Scale) 0 units SUBQ ACHS SYLVIA PRN Reason: Protocol Stop: 01/24/18 16:29 Last Admin: 12/05/17 21:25 Dose: 2 units Insulin Detemir (Levemir Insulin) 40 units SUBQ HS [facility] Stop: 01/25/18 20:59 Last Admin: 12/05/17 21:25 Dose: 40 units Lactobacillus Rhamnosus (Culturelle 15b) 1 each PO DAILY [facility] Stop: 02/03/18 08:59 Last Admin: 12/05/17 09:05 Dose: 1 each Lisinopril (Zestril) 15 mg PO DAILY [facility] Stop: 01/23/18 11:59 Last Admin: 12/05/17 10:42 Dose: Not Given Lorazepam (Ativan) 0.5 mg IVP BID PRN; Protocol PRN Reason: Agitation Stop: 02/02/18 16:11 Miscellaneous (Probiotic Screen) 1 ea MC PRN PRN PRN Reason: PROTOCOL Stop: 02/02/18 15:14 Morphine Sulfate (Morphine) 1 mg IVP Q4HR PRN PRN Reason: Pain (Moderate) Stop: 01/23/18 11:51 Last Admin: 11/24/17 22:32 Dose: 1 mg Morphine Sulfate (Morphine) 2 mg IVP Q4HR PRN PRN Reason: Pain (Severe) Stop: 01/23/18 11:51 Last Admin: 12/05/17 08:47 Dose: 2 mg Ondansetron HCl (Zofran) 4 mg IV Q4H PRN PRN Reason: Nausea / Vomiting Stop: 01/23/18 11:56 Pentoxifylline (Trental) 400 mg PO BID [facility] Stop: 01/25/18 08:59 Last Admin: 12/05/17 16:56 Dose: 400 mg Potassium Chloride (Klor-Con) 40 meq PO DAILY [facility] Stop: 02/02/18 08:59 Last Admin: 12/05/17 09:06 Dose: 40 meq Sitagliptin Phosphate (Januvia) 25 mg PO DAILY [facility] Stop: 01/25/18 08:59 Last Admin: 12/05/17 09:05 Dose: 25 mg Temazepam (Restoril) 15 mg PO HS PRN; Protocol PRN Reason: Insomnia Stop: 01/31/18 01:41 Last Admin: 12/02/17 21:43 Dose: 15 mg Tramadol HCl (Ultram) 50 mg PO Q6HR PRN PRN Reason: Pain (Moderate) Stop: 01/29/18 00:00 Last Admin: 12/05/17 16:02 Dose: 50 mg General: no acute distress, well developed, well nourished HEENT: atraumatic, normocephalic, PERRLA, EOMI Neck: supple, no thyromegaly Cardiovascular: S1S2, regular Lungs: clear to auscultation bilaterally, clear to percussion Abdomen: soft, no tender, no distended, no mass Extremities: no cyanosis, no clubbing, no edema Neurological: awake, alert, oriented Skin: intact - Procedures Procedures: Procedures Procedure Code Date ASSISTANCE WITH RESPIRATORY VENTILATION, 24-96 HRS, CPAP [id number] 11/24/17 DRAINAGE OF SKIN ABSCESS 01892 07/03/05 OTHER SKIN & SUBQ I D 86.04 07/03/05 POS AIRWAY PRESSURE CPAP 12304 11/24/17 Infectious Disease Assmt/Plan - Problem List Patient Problems: All Active Problems Anemia (Acute) D64.9 Anxiety (Acute) F41.9 COPD exacerbation (Acute) J44.1 Diabetes (Acute) E11.9 General weakness (Acute) HTN (hypertension) (Acute) I10 Hyperlipidemia (Acute) E78.5 - Assessment Assessment: 1. Pneumonia . 2. altered mental status, likey 2/2 CO2 Narcosis. cannot rule out any other etiologies. 3. CHF 4. brice cardia ( borderline). 5. Right leg wound, suspect venous stasis ulcer and pyoderma gangrenosum. 6. Insominia. 7. IRINA. 8. Neurogenic bladder. - Plan Plan: Continue Levaquin. dc zosyn. continue. restoril Nutritional Asmnt/Malnutr-PDOC - Dietary Evaluation Malnutrition Findings (Please click <Entered> for more info): Nutritional Asmnt/Malnutrition Start: 11/25/17 18: 26 Text: Status: Complete Freq: Document 11/25/17 18:26 LCHENG (Rec: 11/25/17 18:33 SAMSONG [email or web address]) Nutritional Asmnt/Malnutrition Patient General Information Nutritional Screening High Risk Consult Diagnosis anemia, COPD, respiratory acidosis Pertinent Medical Hx/Surgical Hx anemia, DM per family Subjective Information consult received for diebetic foot ulcer, skin integrity/ wound. . pt seen resting in bed at the time of visit, family at bedside. family reported pt got regular diet tray this morning, wanted diabetic diet. Pt only had some oatmeal for breakfast and squash and applesauce for lunch, low appetite d/t disease. Family denied pt having chewing problem with dentures. Per notes, PO intake 25-50% / Current Diet Order/ Nutrition Support Regular Pertinent Medications novolog, nacl 0.9% Pertinent Labs 1/2 Na 128, K 3.2, Cl 95, BUN 15, Cr 0.8, Glucose 83, ca 8.0 11/25 POC 165-167 Nutritional Hx/Data Height 1.65 m Height (Calculated Centimeters) 165.1 Current Weight (lbs) 77.111 kg Weight (Calculated Kilograms) 77.1 Weight (Calculated Grams) 56587.7 [place] Body Weight 125 % [place] Body Weight 136 Body Mass Index (BMI) 28.3 Weight Status Overweight GI Symptoms GI Symptoms None Difficult in: None Skin Integrity/Comment: decubitus to right foot Current %PO Poor (25-49%) Estimated Nutritional Goals BEE in Kcals: Using Current wt Calories/Kcals/Kg 25 Kcals Calculated 1924 Protein: Using Current wt Protein g/k Protein Calculated 77 Fluid: ml 1924 Nutritional Problem 1. Problem Problem inadquate food intake Etiology poor appetite Signs/Symptoms: PO intake <50% Malnutrition Alert Protein-Calorie Malnutrition N/A Is there a minimum of two criteria No selected? Query Text:Check all the applicable criteria. A minimum of two criteria are recommended for diagnosis of either severe or non-severe malnutrition. Intervention/Recommendation Comments 1. Recommend CCHO diet with Boost Glucose Control BID. Notified RN. 2. Monitor PO intake, wt, labs and skin integrity 3. F/U as high risk in 2-3 days, 11/27-11/28 Expected Outcomes/Goals Expected Outcomes/Goals 1. PO intake to improve, to meet at least 75% of nutritional needs. 2. Wt stability, skin to remain intact, labs to improve
[2017-12-06] MEDS: Albuterol/Ipratropium Neb 3 ML AERS HHN SCH ×5 (03:30→14:48)
[2017-12-06 07:28] LABS: INR 1.22 (0.5-1.4); PROTHROMBIN TIME (TEST) 12.8 SECONDS (9.5-11.5)
[2017-12-06 07:36] LABS: CHOLESTEROL 110 mg/dL (<200); HDL -HIGH DENSITY LIPOPROTEIN 39 mg/dL (23-92); TRIGLYCERIDES 139 mg/dL (<150)
[2017-12-06] MEDS: INSULIN ASPART SLIDING SCALE 100 UNITS/ML UNIT SUBQ SCH ×2 (07:48→11:23)
[2017-12-06] MEDS: Lactobacillus Rhamnosus GG 15 Billion CFU CAP.SPRINK PO SCH (09:10)
[2017-12-06] MEDS: Atorvastatin Calcium 10 MG TAB PO SCH (09:11)
[2017-12-06] MEDS: Potassium Chloride 20 mEq ER Tab PO SCH (09:11)
[2017-12-06] MEDS: Dabigatran Mesylate 75 mg Cap PO SCH ×2 (10:14→16:40)
--- NOTE | 2017-12-06 11:22 | Diagnostic Imaging Report ---
Ultrasound bladder limited History: Urinary retention, patient has Anderson clamped for 2 hours Comparison: None Technique: Limited sonographic images of the pelvis were obtained. A Anderson catheter is seen within underdistended urinary bladder. The prevoid bladder volume measures 17 mL. Mild prominence of the urinary bladder wall is noted. IMPRESSION: Underdistended urinary bladder measuring 17 mL's-containing a Anderson catheter. Please correlate with clinical findings. Mild prominence of the urinary bladder wall which may be accentuated by underdistention, however, underlying inflammatory process cannot be excluded. Please correlate clinically.
--- NOTE | 2017-12-06 12:41 | General Progress Note ---
Subjective - Review of Systems Events since last encounter: Patient is alert and awake. Not in acute distress. c/o insomnia. Objective - Results Result Diagrams: 12/05/17 05:46 12/05/17 05:46 Recent Labs: Laboratory Last Values WBC 14.5 Th/cmm (4.8-10.8) H D 12/05/17 05:46 RBC 3.59 Mil/cmm (3.80-5.20) L 12/05/17 05:46 Hgb 9.1 gm/dL (12-16) L 12/05/17 05:46 Hct 28.2 % (41.0-60) L 12/05/17 05:46 MCV 78.6 fl (81-100) L 12/05/17 05:46 MCH 25.2 pg (27.0-31.0) L 12/05/17 05:46 MCHC Differential 32.1 pg (28.0-36.0) 12/05/17 05:46 RDW 14.7 % (11.5-20.0) 12/05/17 05:46 Plt Count 264 Th/cmm (150-400) 12/05/17 05:46 MPV 7.8 fl 12/05/17 05:46 Neutrophils % 79.3 % (40.0-80.0) 12/05/17 05:46 Band Neutrophils % 3 % (0-10) 12/04/17 08:30 Lymphocytes % 10.9 % (20.0-50.0) L 12/05/17 05:46 Monocytes % 8.1 % (2.0-10.0) 12/05/17 05:46 Eosinophils % 1.3 % (0.0-5.0) 12/05/17 05:46 Basophils % 0.4 % (0.0-2.0) 12/05/17 05:46 Neutrophils (Manual) 78 % (40-80) 12/04/17 08:30 Lymphocytes 12 % (20-50) L 12/04/17 08:30 Monocytes 7 % (2-10) 12/04/17 08:30 Platelet Estimate ADEQUATE (NORMAL) 11/28/17 07:00 Microcytosis 1+ 11/28/17 07:00 PT 12.8 SECONDS (9.5-11.5) H 12/06/17 06:31 INR 1.22 (0.5-1.4) 12/06/17 06:31 PTT (Actin FS) 30.4 SECONDS (26.0-38.0) 12/06/17 06:31 Specimen Source AERTERIAL 11/29/17 09:40 Sample Site RB 11/29/17 09:40 pH 7.54 (7.35-7.45) H 11/29/17 09:40 pCO2 59.0 mmHg (35.0-45.0) H* 11/29/17 09:40 pO2 60.0 mmHg (80.0-100.0) L 11/29/17 09:40 HCO3 43.0 mEq/L (20.0-26.0) H 11/29/17 09:40 Base Excess 21.0 mEq/L (-3.0-3.0) H 11/29/17 09:40 O2 Saturation 93.0 % (92.0-100.0) 11/29/17 09:40 Fredy Test Y 11/29/17 09:40 Vent Rate N/A 11/29/17 09:40 Inspired O2 30 11/29/17 09:40 Tidal Volume N/A 11/29/17 09:40 PEEP N/A 11/29/17 09:40 Pressure (ins/psv/peep) N/A 11/29/17 09:40 Critical Value O.VARELA 11/29/17 09:40 Sodium 134 mEq/L (136-145) L 12/05/17 05:46 Potassium 3.7 mEq/L (3.5-5.1) 12/05/17 05:46 Chloride 89 mEq/L (98-107) L 12/05/17 05:46 Carbon Dioxide 38.3 mEq/L (21.0-31.0) H 12/05/17 05:46 Anion Gap 10.4 (7.0-16.0) 12/05/17 05:46 BUN 31 mg/dL (7-25) H 12/05/17 05:46 Creatinine 2.5 mg/dL (0.6-1.2) H 12/05/17 05:46 Est GFR ( Amer) TNP 12/05/17 05:46 Est GFR (Non-Af Amer) TNP 12/05/17 05:46 BUN/Creatinine Ratio 12.4 12/05/17 05:46 Glucose 175 mg/dL (70-105) H 12/05/17 05:46 POC Glucose 84 MG/DL (70 - 105) 12/06/17 11:21 Hemoglobin A1c % 7.5 % (4.0-6.0) H 11/27/17 05:05 Calcium 8.5 mg/dL (8.6-10.3) L 12/05/17 05:46 Magnesium 2.1 mg/dL (1.9-2.7) 12/01/17 05:34 Total Bilirubin 0.8 mg/dL (0.3-1.0) 12/05/17 05:46 AST 29 U/L (13-39) 12/05/17 05:46 ALT 17 U/L (7-52) 12/05/17 05:46 Alkaline Phosphatase 80 U/L (34-104) 12/05/17 05:46 Troponin I 0.78 ng/mL (0.01-0.05) H* 12/06/17 06:31 B-Natriuretic Peptide 2500.0 pg/mL (5.0-100.0) H 12/03/17 06:30 Total Protein 6.0 gm/dL (6.0-8.3) 12/05/17 05:46 Albumin 2.6 gm/dL (3.7-5.3) L 12/05/17 05:46 Globulin 3.4 gm/dL 12/05/17 05:46 Albumin/Globulin Ratio 0.8 (1.0-1.8) L 12/05/17 05:46 Triglycerides 139 mg/dL (<150) 12/06/17 06:31 Cholesterol 110 mg/dL (<200) 12/06/17 06:31 LDL Cholesterol Direct 56 mg/dL (75-193) L 12/06/17 06:31 HDL Cholesterol 39 mg/dL (23-92) 12/06/17 06:31 TSH 2.37 uIU/ml (0.34-5.60) 12/06/17 06:31 Urine Source CATH 11/26/17 12:10 Urine Color YELLOW 11/26/17 12:10 Urine Clarity HAZY (CLEAR) 11/26/17 12:10 Urine pH 6.0 (4.6 - 8.0) 11/26/17 12:10 Ur Specific [place] 1.025 (1.005-1.030) 11/26/17 12:10 Urine Protein 100 mg/dL (NEGATIVE) H 11/26/17 12:10 Urine Glucose (UA) 100 mg/dL (NEGATIVE) H 11/26/17 12:10 Urine Ketones NEGATIVE mg/dL (NEGATIVE) 11/26/17 12:10 Urine Blood LARGE (NEGATIVE) H 11/26/17 12:10 Urine Nitrate NEGATIVE (NEGATIVE) 11/26/17 12:10 Urine Bilirubin SMALL (NEGATIVE) H 11/26/17 12:10 Urine Urobilinogen 0.2 E.U./dL (0.2 - 1.0) 11/26/17 12:10 Ur Leukocyte Esterase NEGATIVE (NEGATIVE) 11/26/17 12:10 Urine RBC >100 /hpf (0-5) H 11/26/17 12:10 Urine WBC 2-5 /hpf (0-5) 11/26/17 12:10 Ur Epithelial Cells FEW /lpf (FEW) 11/26/17 12:10 Urine Bacteria FEW /hpf (NONE SEEN) 11/26/17 12:10 Hyaline Casts 2-5 /lpf (0-2) H 11/24/17 02:50 Influenza A (Rapid) NEG FOR INF A 11/29/17 11:15 Influenza B (Rapid) NEG FOR INF B 11/29/17 11:15 - Physical Exam Vitals and I&O: Vital Signs Temp 97.1 F 12/06/17 11:56 Pulse 106 12/06/17 11:56 Resp 18 12/06/17 12:00 BP 112/67 12/06/17 11:56 Pulse Ox 100 12/06/17 11:56 Intake & Output 12/05/17 12/06/17 12/06/17 18:59 06:59 18:59 Intake Total 600 350 Output Total 850 Balance 600 -500 Weight (lbs) 94.801 kg 94.347 kg Intake: Intake, IV Amount 100 150 Levofloxacin 250mg/50mL 50 250 mg In 50 ml @ 50 mls/ hr IV Q24HR [facility] Rx#: [id number] Piperacillin Sodium/ 100 100 Tazobact 4.5 gm In Sodium Chloride 0.9% 100 ml @ 100 mls/hr IV Q8HR [facility] Rx #:[id number] Oral 500 200 Output: Urine 850 Other: # Voids 3 # Bowel Movements 1 1 Stool Characteristics Soft Formed Active Medications: Current Medications Albuterol/Ipratropium (Duoneb Neb) 3 ml HHN Q4HRT [facility] Stop: 01/29/18 18:59 Last Admin: 12/06/17 11:10 Dose: 3 ml Alprazolam (Xanax) 0.25 mg PO Q8HR PRN; Protocol PRN Reason: Anxiety Stop: 02/02/18 16:12 Aspirin (Ecotrin) 81 mg PO DAILY [facility] Stop: 01/25/18 08:59 Last Admin: 12/06/17 09:11 Dose: 81 mg Atorvastatin Calcium (Lipitor) 10 mg PO DAILY [facility] Stop: 01/25/18 08:59 Last Admin: 12/06/17 09:11 Dose: 10 mg Carvedilol (Coreg) 25 mg PO BID [facility] Stop: 01/25/18 08:59 Last Admin: 12/06/17 09:11 Dose: 25 mg Dextrose (D50w) 50 ml IVP DAILY PRN PRN Reason: Blood Glucose less than 70 Stop: 01/27/18 08:44 Last Admin: 11/28/17 09:19 Dose: 50 ml Dextrose (Glutose 40%) 18.75 gm PO DAILY PRN PRN Reason: Blood Glucose less than 70 Stop: 01/27/18 08:44 Diltiazem HCl (Cardizem) 5 mg IVP Q4HR PRN PRN Reason: HR>120 Stop: 02/03/18 22:31 Furosemide (Lasix) 40 mg IVP DAILY [facility] Stop: 02/02/18 08:59 Last Admin: 12/06/17 09:12 Dose: 40 mg Glucagon (Glucagen) 1 mg IM DAILY PRN PRN Reason: Blood Glucose less than 70 Stop: 01/27/18 08:44 Hydralazine HCl (Apresoline 20 Mg/Ml) 10 mg IV Q4HR PRN PRN Reason: Systolic BP Above 160 Stop: 01/29/18 07:03 Last Admin: 12/02/17 20:42 Dose: 10 mg Levofloxacin (Levaquin Pb) 250 mg in 50 mls @ 50 mls/hr IV Q24HR [facility] Stop: 02/02/18 20:59 Last Infusion: 12/05/17 22:10 Dose: Infused Insulin Aspart (Novolog Insulin Sliding Scale) 0 units SUBQ ACHS SYLV[facility] PRN Reason: Protocol Stop: 01/24/18 16:29 Last Admin: 12/06/17 11:23 Dose: Not Given Insulin Detemir (Levemir Insulin) 40 units SUBQ HS [facility] Stop: 01/25/18 20:59 Last Admin: 12/05/17 21:25 Dose: 40 units Lactobacillus Rhamnosus (Culturelle 15b) 1 each PO DAILY [facility] Stop: 02/03/18 08:59 Last Admin: 12/06/17 09:10 Dose: 1 each Lisinopril (Zestril) 15 mg PO DAILY [facility] Stop: 01/23/18 11:59 Last Admin: 12/06/17 09:09 Dose: 15 mg Lorazepam (Ativan) 0.5 mg IVP BID PRN; Protocol PRN Reason: Agitation Stop: 02/02/18 16:11 Miscellaneous (Probiotic Screen) 1 ea MC PRN PRN PRN Reason: PROTOCOL Stop: 02/02/18 15:14 Morphine Sulfate (Morphine) 1 mg IVP Q4HR PRN PRN Reason: Pain (Moderate) Stop: 01/23/18 11:51 Last Admin: 11/24/17 22:32 Dose: 1 mg Morphine Sulfate (Morphine) 2 mg IVP Q4HR PRN PRN Reason: Pain (Severe) Stop: 01/23/18 11:51 Last Admin: 12/05/17 08:47 Dose: 2 mg Ondansetron HCl (Zofran) 4 mg IV Q4H PRN PRN Reason: Nausea / Vomiting Stop: 01/23/18 11:56 Pentoxifylline (Trental) 400 mg PO BID [facility] Stop: 01/25/18 08:59 Last Admin: 12/06/17 09:09 Dose: 400 mg Potassium Chloride (Klor-Con) 40 meq PO DAILY [facility] Stop: 02/02/18 08:59 Last Admin: 12/06/17 09:11 Dose: 40 meq Sitagliptin Phosphate (Januvia) 25 mg PO DAILY [facility] Stop: 01/25/18 08:59 Last Admin: 12/06/17 09:09 Dose: 25 mg Temazepam (Restoril) 15 mg PO HS PRN; Protocol PRN Reason: Insomnia Stop: 01/31/18 01:41 Last Admin: 12/02/17 21:43 Dose: 15 mg Tramadol HCl (Ultram) 50 mg PO Q6HR PRN PRN Reason: Pain (Moderate) Stop: 01/29/18 00:00 Last Admin: 12/05/17 16:02 Dose: 50 mg General: No acute distress HEENT: Atraumatic Neck: Supple Cardiovascular: Regular rate - Procedures Procedures: Procedures Procedure Code Date ASSISTANCE WITH RESPIRATORY VENTILATION, 24-96 HRS, CPAP [id number] 11/24/17 DRAINAGE OF SKIN ABSCESS 10128 07/03/05 OTHER SKIN & SUBQ I D 86.04 07/03/05 POS AIRWAY PRESSURE CPAP 51917 11/24/17 Assessment/Plan - Problem List Patient Problems: All Active Problems Anemia (Acute) D64.9 Anxiety (Acute) F41.9 COPD exacerbation (Acute) J44.1 Diabetes (Acute) E11.9 General weakness (Acute) HTN (hypertension) (Acute) I10 Hyperlipidemia (Acute) E78.5 - Plan Plan: cpm Nutritional Asmnt/Malnutr-PDOC - Dietary Evaluation Malnutrition Findings (Please click <Entered> for more info): Nutritional Asmnt/Malnutrition Start: 11/25/17 18: 26 Text: Status: Complete Freq: Document 11/25/17 18:26 SAMSON (Rec: 11/25/17 18:33 SAMSON [email or web address]) Nutritional Asmnt/Malnutrition Patient General Information Nutritional Screening High Risk Consult Diagnosis anemia, COPD, respiratory acidosis Pertinent Medical Hx/Surgical Hx anemia, DM per family Subjective Information consult received for diebetic foot ulcer, skin integrity/ wound. . pt seen resting in bed at the time of visit, family at bedside. family reported pt got regular diet tray this morning, wanted diabetic diet. Pt only had some oatmeal for breakfast and squash and applesauce for lunch, low appetite d/t disease. Family denied pt having chewing problem with dentures. Per notes, PO intake 25-50% 11/25 Current Diet Order/ Nutrition Support Regular Pertinent Medications novolog, nacl 0.9% Pertinent Labs 11/23 Na 128, K 3.2, Cl 95, BUN 15, Cr 0.8, Glucose 83, ca 8.0 11/25 POC 165-167 Nutritional Hx/Data Height 1.65 m Height (Calculated Centimeters) 165.1 Current Weight (lbs) 77.111 kg Weight (Calculated Kilograms) 77.1 Weight (Calculated Grams) 46147.7 [place] Body Weight 125 % [place] Body Weight 136 Body Mass Index (BMI) 28.3 Weight Status Overweight GI Symptoms GI Symptoms None Difficult in: None Skin Integrity/Comment: decubitus to right foot Current %PO Poor (25-49%) Estimated Nutritional Goals BEE in Kcals: Using Current wt Calories/Kcals/Kg 25 Kcals Calculated 1924 Protein: Using Current wt Protein g/k Protein Calculated 77 Fluid: ml 1924 Nutritional Problem 1. Problem Problem inadquate food intake Etiology poor appetite Signs/Symptoms: PO intake <50% Malnutrition Alert Protein-Calorie Malnutrition N/A Is there a minimum of two criteria No selected? Query Text:Check all the applicable criteria. A minimum of two criteria are recommended for diagnosis of either severe or non-severe malnutrition. Intervention/Recommendation Comments 1. Recommend CCHO diet with Boost Glucose Control BID. Notified RN. 2. Monitor PO intake, wt, labs and skin integrity 3. F/U as high risk in 2-3 days, 11/27-11/28 Expected Outcomes/Goals Expected Outcomes/Goals 1. PO intake to improve, to meet at least 75% of nutritional needs. 2. Wt stability, skin to remain intact, labs to improve
--- NOTE | 2017-12-06 15:55 | Infectious Disease Prog Note ---
Infectious Disease Subjective - Review of Systems Service Date: 12/06/17 Subjective: Patient is alert and awake. Not in acute distress. No fever. Infectious Disease Objective - Results Result Diagrams: 12/05/17 05:46 12/05/17 05:46 Recent Labs: Laboratory Last Values WBC 14.5 Th/cmm (4.8-10.8) H D 12/05/17 05:46 RBC 3.59 Mil/cmm (3.80-5.20) L 12/05/17 05:46 Hgb 9.1 gm/dL (12-16) L 12/05/17 05:46 Hct 28.2 % (41.0-60) L 12/05/17 05:46 MCV 78.6 fl (81-100) L 12/05/17 05:46 MCH 25.2 pg (27.0-31.0) L 12/05/17 05:46 MCHC Differential 32.1 pg (28.0-36.0) 12/05/17 05:46 RDW 14.7 % (11.5-20.0) 12/05/17 05:46 Plt Count 264 Th/cmm (150-400) 12/05/17 05:46 MPV 7.8 fl 12/05/17 05:46 Neutrophils % 79.3 % (40.0-80.0) 12/05/17 05:46 Band Neutrophils % 3 % (0-10) 12/04/17 08:30 Lymphocytes % 10.9 % (20.0-50.0) L 12/05/17 05:46 Monocytes % 8.1 % (2.0-10.0) 12/05/17 05:46 Eosinophils % 1.3 % (0.0-5.0) 12/05/17 05:46 Basophils % 0.4 % (0.0-2.0) 12/05/17 05:46 Neutrophils (Manual) 78 % (40-80) 12/04/17 08:30 Lymphocytes 12 % (20-50) L 12/04/17 08:30 Monocytes 7 % (2-10) 12/04/17 08:30 Platelet Estimate ADEQUATE (NORMAL) 11/28/17 07:00 Microcytosis 1+ 11/28/17 07:00 PT 12.8 SECONDS (9.5-11.5) H 12/06/17 06:31 INR 1.22 (0.5-1.4) 12/06/17 06:31 PTT (Actin FS) 30.4 SECONDS (26.0-38.0) 12/06/17 06:31 Specimen Source AERTERIAL 11/29/17 09:40 Sample Site RB 11/29/17 09:40 pH 7.54 (7.35-7.45) H 11/29/17 09:40 pCO2 59.0 mmHg (35.0-45.0) H* 11/29/17 09:40 pO2 60.0 mmHg (80.0-100.0) L 11/29/17 09:40 HCO3 43.0 mEq/L (20.0-26.0) H 11/29/17 09:40 Base Excess 21.0 mEq/L (-3.0-3.0) H 11/29/17 09:40 O2 Saturation 93.0 % (92.0-100.0) 11/29/17 09:40 Fredy Test Y 11/29/17 09:40 Vent Rate N/A 11/29/17 09:40 Inspired O2 30 11/29/17 09:40 Tidal Volume N/A 11/29/17 09:40 PEEP N/A 11/29/17 09:40 Pressure (ins/psv/peep) N/A 11/29/17 09:40 Critical Value O.VARELA 11/29/17 09:40 Sodium 134 mEq/L (136-145) L 12/05/17 05:46 Potassium 3.7 mEq/L (3.5-5.1) 12/05/17 05:46 Chloride 89 mEq/L (98-107) L 12/05/17 05:46 Carbon Dioxide 38.3 mEq/L (21.0-31.0) H 12/05/17 05:46 Anion Gap 10.4 (7.0-16.0) 12/05/17 05:46 BUN 31 mg/dL (7-25) H 12/05/17 05:46 Creatinine 2.5 mg/dL (0.6-1.2) H 12/05/17 05:46 Est GFR ( Amer) TNP 12/05/17 05:46 Est GFR (Non-Af Amer) [facility] 12/05/17 05:46 BUN/Creatinine Ratio 12.4 12/05/17 05:46 Glucose 175 mg/dL (70-105) H 12/05/17 05:46 POC Glucose 84 MG/DL (70 - 105) 12/06/17 11:21 Hemoglobin A1c % 7.5 % (4.0-6.0) H 11/27/17 05:05 Calcium 8.5 mg/dL (8.6-10.3) L 12/05/17 05:46 Magnesium 2.1 mg/dL (1.9-2.7) 12/01/17 05:34 Total Bilirubin 0.8 mg/dL (0.3-1.0) 12/05/17 05:46 AST 29 U/L (13-39) 12/05/17 05:46 ALT 17 U/L (7-52) 12/05/17 05:46 Alkaline Phosphatase 80 U/L (34-104) 12/05/17 05:46 Troponin I 0.68 ng/mL (0.01-0.05) H* D 12/06/17 14:47 B-Natriuretic Peptide 2500.0 pg/mL (5.0-100.0) H 12/03/17 06:30 Total Protein 6.0 gm/dL (6.0-8.3) 12/05/17 05:46 Albumin 2.6 gm/dL (3.7-5.3) L 12/05/17 05:46 Globulin 3.4 gm/dL 12/05/17 05:46 Albumin/Globulin Ratio 0.8 (1.0-1.8) L 12/05/17 05:46 Triglycerides 139 mg/dL (<150) 12/06/17 06:31 Cholesterol 110 mg/dL (<200) 12/06/17 06:31 LDL Cholesterol Direct 56 mg/dL (75-193) L 12/06/17 06:31 HDL Cholesterol 39 mg/dL (23-92) 12/06/17 06:31 TSH 2.37 uIU/ml (0.34-5.60) 12/06/17 06:31 Urine Source CATH 11/26/17 12:10 Urine Color YELLOW 11/26/17 12:10 Urine Clarity HAZY (CLEAR) 11/26/17 12:10 Urine pH 6.0 (4.6 - 8.0) 11/26/17 12:10 Ur Specific Stephenson 1.025 (1.005-1.030) 11/26/17 12:10 Urine Protein 100 mg/dL (NEGATIVE) H 11/26/17 12:10 Urine Glucose (UA) 100 mg/dL (NEGATIVE) H 11/26/17 12:10 Urine Ketones NEGATIVE mg/dL (NEGATIVE) 11/26/17 12:10 Urine Blood LARGE (NEGATIVE) H 11/26/17 12:10 Urine Nitrate NEGATIVE (NEGATIVE) 11/26/17 12:10 Urine Bilirubin SMALL (NEGATIVE) H 11/26/17 12:10 Urine Urobilinogen 0.2 E.U./dL (0.2 - 1.0) 11/26/17 12:10 Ur Leukocyte Esterase NEGATIVE (NEGATIVE) 11/26/17 12:10 Urine RBC >100 /hpf (0-5) H 11/26/17 12:10 Urine WBC 2-5 /hpf (0-5) 11/26/17 12:10 Ur Epithelial Cells FEW /lpf (FEW) 11/26/17 12:10 Urine Bacteria FEW /hpf (NONE SEEN) 11/26/17 12:10 Hyaline Casts 2-5 /lpf (0-2) H 11/24/17 02:50 Influenza A (Rapid) NEG FOR INF A 11/29/17 11:15 Influenza B (Rapid) NEG FOR INF B 11/29/17 11:15 - Physical Exam Vitals and I&O: Vital Signs Temp 97.8 F 12/06/17 15:49 Pulse 97 12/06/17 15:49 Resp 17 12/06/17 15:49 BP 120/60 12/06/17 15:49 Pulse Ox 98 12/06/17 15:49 Intake & Output 12/05/17 12/06/17 12/06/17 18:59 06:59 18:59 Intake Total 600 350 Output Total 850 Balance 600 -500 Weight (lbs) 94.801 kg 94.347 kg Intake: Intake, IV Amount 100 150 Levofloxacin 250mg/50mL 50 250 mg In 50 ml @ 50 mls/ hr IV Q24HR [facility] Rx#: [id number] Piperacillin Sodium/ 100 100 Tazobact 4.5 gm In Sodium Chloride 0.9% 100 ml @ 100 mls/hr IV Q8HR [facility] Rx #:[id number] Oral 500 200 Output: Urine 850 Other: # Voids 3 # Bowel Movements 1 1 Stool Characteristics Soft Formed Active Medications: Current Medications Albuterol/Ipratropium (Duoneb Neb) 3 ml HHN Q4HRT [facility] Stop: 01/29/18 18:59 Last Admin: 12/06/17 14:48 Dose: 3 ml Alprazolam (Xanax) 0.25 mg PO Q8HR PRN; Protocol PRN Reason: Anxiety Stop: 02/02/18 16:12 Aspirin (Ecotrin) 81 mg PO DAILY [facility] Stop: 01/25/18 08:59 Last Admin: 12/06/17 09:11 Dose: 81 mg Atorvastatin Calcium (Lipitor) 10 mg PO DAILY [facility] Stop: 01/25/18 08:59 Last Admin: 12/06/17 09:11 Dose: 10 mg Carvedilol (Coreg) 25 mg PO BID [facility] Stop: 01/25/18 08:59 Last Admin: 12/06/17 09:11 Dose: 25 mg Dextrose (D50w) 50 ml IVP DAILY PRN PRN Reason: Blood Glucose less than 70 Stop: 01/27/18 08:44 Last Admin: 11/28/17 09:19 Dose: 50 ml Dextrose (Glutose 40%) 18.75 gm PO DAILY PRN PRN Reason: Blood Glucose less than 70 Stop: 01/27/18 08:44 Diltiazem HCl (Cardizem) 5 mg IVP Q4HR PRN PRN Reason: HR>120 Stop: 02/03/18 22:31 Furosemide (Lasix) 40 mg IVP DAILY [facility] Stop: 02/02/18 08:59 Last Admin: 12/06/17 09:12 Dose: 40 mg Glucagon (Glucagen) 1 mg IM DAILY PRN PRN Reason: Blood Glucose less than 70 Stop: 01/27/18 08:44 Hydralazine HCl (Apresoline 20 Mg/Ml) 10 mg IV Q4HR PRN PRN Reason: Systolic BP Above 160 Stop: 01/29/18 07:03 Last Admin: 12/02/17 20:42 Dose: 10 mg Levofloxacin (Levaquin Pb) 250 mg in 50 mls @ 50 mls/hr IV Q24HR [facility] Stop: 02/02/18 20:59 Last Infusion: 12/05/17 22:10 Dose: Infused Insulin Aspart (Novolog Insulin Sliding Scale) 0 units SUBQ ACHS [facility] PRN Reason: Protocol Stop: 01/24/18 16:29 Last Admin: 12/06/17 11:23 Dose: Not Given Insulin Detemir (Levemir Insulin) 40 units SUBQ HS [facility] Stop: 01/25/18 20:59 Last Admin: 12/05/17 21:25 Dose: 40 units Lactobacillus Rhamnosus (Culturelle 15b) 1 each PO DAILY [facility] Stop: 02/03/18 08:59 Last Admin: 12/06/17 09:10 Dose: 1 each Lisinopril (Zestril) 15 mg PO DAILY [facility] Stop: 01/23/18 11:59 Last Admin: 12/06/17 09:09 Dose: 15 mg Lorazepam (Ativan) 0.5 mg IVP BID PRN; Protocol PRN Reason: Agitation Stop: 02/02/18 16:11 Miscellaneous (Probiotic Screen) 1 ea MC PRN PRN PRN Reason: PROTOCOL Stop: 02/02/18 15:14 Morphine Sulfate (Morphine) 1 mg IVP Q4HR PRN PRN Reason: Pain (Moderate) Stop: 01/23/18 11:51 Last Admin: 11/24/17 22:32 Dose: 1 mg Morphine Sulfate (Morphine) 2 mg IVP Q4HR PRN PRN Reason: Pain (Severe) Stop: 01/23/18 11:51 Last Admin: 12/05/17 08:47 Dose: 2 mg Ondansetron HCl (Zofran) 4 mg IV Q4H PRN PRN Reason: Nausea / Vomiting Stop: 01/23/18 11:56 Pentoxifylline (Trental) 400 mg PO BID [facility] Stop: 01/25/18 08:59 Last Admin: 12/06/17 09:09 Dose: 400 mg Potassium Chloride (Klor-Con) 40 meq PO DAILY [facility] Stop: 02/02/18 08:59 Last Admin: 12/06/17 09:11 Dose: 40 meq Sitagliptin Phosphate (Januvia) 25 mg PO DAILY [facility] Stop: 01/25/18 08:59 Last Admin: 12/06/17 09:09 Dose: 25 mg Temazepam (Restoril) 15 mg PO HS PRN; Protocol PRN Reason: Insomnia Stop: 01/31/18 01:41 Last Admin: 12/02/17 21:43 Dose: 15 mg Tramadol HCl (Ultram) 50 mg PO Q6HR PRN PRN Reason: Pain (Moderate) Stop: 01/29/18 00:00 Last Admin: 12/05/17 16:02 Dose: 50 mg General: no acute distress, well developed, well nourished HEENT: atraumatic, normocephalic, PERRLA, EOMI Neck: supple, no thyromegaly Cardiovascular: S1S2, regular Lungs: clear to auscultation bilaterally, clear to percussion Abdomen: soft, no tender Extremities: no cyanosis, no clubbing, no edema Neurological: awake, alert, oriented Skin: intact - Procedures Procedures: Procedures Procedure Code Date ASSISTANCE WITH RESPIRATORY VENTILATION, 24-96 HRS, CPAP [id number] 11/24/17 DRAINAGE OF SKIN ABSCESS 09880 07/03/05 OTHER SKIN & SUBQ I D 86.04 07/03/05 POS AIRWAY PRESSURE CPAP 36956 11/24/17 Infectious Disease Assmt/Plan - Problem List Patient Problems: All Active Problems Anemia (Acute) D64.9 Anxiety (Acute) F41.9 COPD exacerbation (Acute) J44.1 Diabetes (Acute) E11.9 General weakness (Acute) HTN (hypertension) (Acute) I10 Hyperlipidemia (Acute) E78.5 - Assessment Assessment: 1. Pneumonia . 2. altered mental status, likey 2/2 CO2 Narcosis. cannot rule out any other etiologies. 3. CHF 4. brice cardia ( borderline). 5. Right leg wound, suspect venous stasis ulcer and pyoderma gangrenosum. 6. Insominia. 7. IRINA. 8. Neurogenic bladder. - Plan Plan: Continue Levaquin for 5 days. Patient can be discharged to group home facility. Nutritional Asmnt/Malnutr-PDOC - Dietary Evaluation Malnutrition Findings (Please click <Entered> for more info): Nutritional Asmnt/Malnutrition Start: 11/25/17 18: 26 Text: Status: Complete Freq: Document 11/25/17 18:26 [facility] (Rec: 11/25/17 18[email or web address] Nutritional Asmnt/Malnutrition Patient General Information Nutritional Screening High Risk Consult Diagnosis anemia, COPD, respiratory acidosis Pertinent Medical Hx/Surgical Hx anemia, DM per family Subjective Information consult received for diebetic foot ulcer, skin integrity/ wound. . pt seen resting in bed at the time of visit, family at bedside. family reported pt got regular diet tray this morning, wanted diabetic diet. Pt only had some oatmeal for breakfast and squash and applesauce for lunch, low appetite d/t disease. Family denied pt having chewing problem with dentures. Per notes, PO intake 25-50% 11/25 Current Diet Order/ Nutrition Support Regular Pertinent Medications novolog, nacl 0.9% Pertinent Labs 11/23 Na 128, K 3.2, Cl 95, BUN 15, Cr 0.8, Glucose 83, ca 8.0 11/25 POC 165-167 Nutritional Hx/Data Height 1.65 m Height (Calculated Centimeters) 165.1 Current Weight (lbs) 77.111 kg Weight (Calculated Kilograms) 77.1 Weight (Calculated Grams) 24749.7 Sophia Body Weight 125 % Sophia Body Weight 136 Body Mass Index (BMI) 28.3 Weight Status Overweight GI Symptoms GI Symptoms None Difficult in: None Skin Integrity/Comment: decubitus to right foot Current %PO Poor (25-49%) Estimated Nutritional Goals BEE in Kcals: Using Current wt Calories/Kcals/Kg 25 Kcals Calculated 1924 Protein: Using Current wt Protein g/k Protein Calculated 77 Fluid: ml 1924 Nutritional Problem 1. Problem Problem inadquate food intake Etiology poor appetite Signs/Symptoms: PO intake <50% Malnutrition Alert Protein-Calorie Malnutrition N/A Is there a minimum of two criteria No selected? Query Text:Check all the applicable criteria. A minimum of two criteria are recommended for diagnosis of either severe or non-severe malnutrition. Intervention/Recommendation Comments 1. Recommend CCHO diet with Boost Glucose Control BID. Notified RN. 2. Monitor PO intake, wt, labs and skin integrity 3. F/U as high risk in 2-3 days, 11/27-11/28 Expected Outcomes/Goals Expected Outcomes/Goals 1. PO intake to improve, to meet at least 75% of nutritional needs. 2. Wt stability, skin to remain intact, labs to improve
--- NOTE | 2017-12-07 01:47 | Discharge Summary ---
DATE OF DISCHARGE: UROLOGY PROGRESS NOTE SUBJECTIVE: The patient failed trial of voiding and had to have the Anderson catheter replaced last night. The nurses did not call me about the amount, but the catheter had to be left in indicating it was most likely more than 300 mL. She is now being sent to a intermediate and hopefully will maintain the catheter over a prolonged period of time to protect renal function. OBJECTIVE: VITAL SIGNS: On exam, temperature 97.8, heart rate 97, blood pressure 120/60. ABDOMEN: Soft, nondistended, and nontender. No masses or hernia. EXTREMITIES: Trace edema. CARDIOVASCULAR: Heart sounds, sinus rhythm. No murmur. LABORATORY DATA: Glucose 75 this morning. Creatinine did not get done as recommended. Troponins remained mildly elevated. No other labs have been done as I had asked the nurses to do. IMPRESSION: 1. Urinary retention, a new issue, requires further attention; however, she is being transferred to a intermediate and hopefully, we will get urology followup over there or as an outpatient. 2. History of urinary tract infection, treated appropriately. 3. History of hematuria that had resolved initially after the catheter was removed. 4. History of chronic obstructive pulmonary disease, currently stable. 5. Diabetes and diabetic foot ulcer, needs further attention as an outpatient. 6. History of congestive heart failure, stable. JOB# [id number]
--- NOTE | 2017-12-07 10:18 | Progress Notes ---
DATE: 12/06/2017 SUBJECTIVE: The patient was seen in her room. Family members are at bedside. The patient is awake, alert, denies any pain or discomfort, otherwise appears to be in no acute distress. OBJECTIVE: VITAL SIGNS: Temperature 97.1, heart rate of 106, blood pressure 112/67, respirations of 18, and 100% via 2 L nasal cannula. HEENT: Head is atraumatic and normocephalic. Eyes, bilateral conjunctivae are clear. Bilateral pupils are equally round and reactive. NECK: Supple. No JVD. CARDIOVASCULAR: S1 and S2 without murmur. PULMONARY: Clear to auscultation. GASTROINTESTINAL: Soft and nontender without guarding. Positive bowel sounds. MUSCULOSKELETAL: No clubbing and no cyanosis noted. ASSESSMENT: 1. Chronic obstructive pulmonary disease. 2. Anemia. 3. Hypertension. 4. Diabetes. 5. Hyperlipidemia. 6. Anxiety. 7. Acute kidney injury. PLAN: We will continue antibiotics. We will follow up with the ID doctor for antibiotic management. The patient will have [facility] for [facility] according to her case management and per family preference area towards the [place] . Treatment plans were discussed with the patient's nurse. Treatment plans were discussed with Dr. Nayak. JOB# [id number]
--- NOTE | 2017-12-20 09:42 | Discharge Summary ---
DATE OF DISCHARGE: 12/06/2017 HOSPITAL COURSE: The patient is a 72-year-old female patient. The patient is known to have history of anemia, brought by the daughter with a history of cough and congestion, shortness of breath and weakness for one week and also sodium was low at 128 and the patient's GFR was low as well and the patient has renal insufficiency and the patient was treated for pneumonia, gradually the patient improved and initial diagnoses of pneumonia, UTI and hypertension. The patient was in stable condition on 12/06/2017 and the insurance decided for the patient to go to [facility] where the hospitalist from the insurance company will follow the patient based on condition at the time of discharge. FINAL DIAGNOSES: Pneumonia, improving; history of anemia; and history of hypertension. [facility]# [id number]
--- NOTE | 2018-01-21 16:51 | History & Physical ---
ADMIT DATE: 11/24/2017 CHIEF COMPLAINT: The patient was admitted for increasing shortness of breath, pneumonia, and acute exacerbation of COPD. HISTORY OF PRESENT ILLNESS: This is a 72-year-old female patient known to have history of hypertension, history of anemia, history of CHF, who came to the ER with increasing shortness of breath and the patient has been gradually deteriorating for the last several days. X-ray showed effusion and also possible pneumonia, was admitted. PAST MEDICAL HISTORY: As enumerated above and the patient has history of anemia, history of COPD, and history of hypertension. REVIEW OF SYSTEMS: Basically increasing shortness of breath and weakness. PHYSICAL EXAMINATION: HEAD: Normal. ENT: Normal. NECK: Supple, nontender. LUNGS: Bilaterally rales. Decreased breath sounds. CARDIOVASCULAR SYSTEM: S1, S2 heard. ABDOMEN: Soft. Bowel sounds are heard. CENTRAL NERVOUS SYSTEM: Grossly normal and chronic right leg edema with pink borders. DIAGNOSES: Pneumonia, chronic obstructive pulmonary disease exacerbation, altered mental status, hypoxemia, congestive heart failure, bradycardia, and right leg wound, was admitted. PLAN: The patient is being admitted, was treated with IV antibiotics, bronchodilators. I will have Pulmonary, Infectious Disease doctor see the patient and I will also ____ the patient for urinary problem and I will follow the patient. The patient did have hematuria, that is the reason of urology consult. JOB# [id number]
== END 2017-12-06 18:30 | DRG 291 ==
LOC: ER 19:38 → TELE 11-24 05:20 → ICU 11-28 00:02 → TELE 12-01 19:55
PROVIDERS: ADMIT Internal Medicine; ATTEND Internal Medicine
PROC: 5A09457 Assistance with Respiratory Ventilation, 24-96 Consecutive Hours, Continuous Positive Airway Pressure (ICD-10-PCS; principal; 2017-11-28)
DX: I11.0 Hypertensive heart disease with heart failure (principal); J18.9 Pneumonia, unspecified organism; J96.00 Acute respiratory failure, unspecified whether with hypoxia or hypercapnia; N17.9 Acute kidney failure, unspecified; T83.83XA Hemorrhage due to genitourinary prosthetic devices, implants and grafts, initial encounter; E87.2 Acidosis; J44.1 Chronic obstructive pulmonary disease with (acute) exacerbation; J44.0 Chronic obstructive pulmonary disease with (acute) lower respiratory infection; I50.31 Acute diastolic (congestive) heart failure; E11.51 Type 2 diabetes mellitus with diabetic peripheral angiopathy without gangrene; E11.621 Type 2 diabetes mellitus with foot ulcer; Y83.8 Other surgical procedures as the cause of abnormal reaction of the patient, or of later complication, without mention of misadventure at the time of the procedure; Y92.89 Other specified places as the place of occurrence of the external cause; D50.9 Iron deficiency anemia, unspecified; E87.6 Hypokalemia; E78.5 Hyperlipidemia, unspecified; F41.9 Anxiety disorder, unspecified; R00.1 Bradycardia, unspecified; I87.2 Venous insufficiency (chronic) (peripheral); G47.00 Insomnia, unspecified; S81.801A Unspecified open wound, right lower leg, initial encounter; R31.9 Hematuria, unspecified; N31.9 Neuromuscular dysfunction of bladder, unspecified; R33.9 Retention of urine, unspecified; L97.519 Non-pressure chronic ulcer of other part of right foot with unspecified severity; Z79.4 Long term (current) use of insulin; Z79.82 Long term (current) use of aspirin; Z90.49 Acquired absence of other specified parts of digestive tract
CPT/HCPCS: 36415-UA; 36600-90; 71045-TC; 76770-TC; 76857-TC; 80048-TC; 80053-TC; 80061-TC; 81001-TC; 82803-TC; 82948-90; 83036-90; 83735-TC; 83880-TC; 84443-TC; 84484-TC; 85007-TC; 85025-TC; 85027-TC; 85610-TC; 85730-TC; 87086-90; 87804-TC; 90799; 93005; 94640; 94660; 94760; J0360; J1815; J1940; J1956; J2001; J2060; J2270; J2543; J3475; J3480; J7030; J7040; J7070; J7799; Z7610